=== PATIENT | male | born 1940 | race Caucasian/White ===

== ENCOUNTER 2019-10-07 12:18 | Outpatient (CLI) | payer MEDICARE, SELFPAY ==
[2019-10-07 13:10] LABS: Basophils % 0.3 %; Eosinophils # 0.1 10^3/uL (0.0-0.8); Eosinophils % 1.3 %; Hematocrit 39.7 % (42.0-52.0); Hemoglobin 13.4 g/dL (11.7-16.6); Lymphocytes # 1.8 10^3/uL (0.8-4.8); Lymphocytes % 29.5 %; Mean Corpuscular HGB Conc 33.8 g/dL (30.0-36.0); Mean Corpuscular Hemoglobin 32.3 pg (28.0-34.0); Mean Corpuscular Volume 95.7 fL (80-94); Mean Platelet Volume 11.2 fL (7.4-10.4); Monocytes # 0.5 10^3/uL (0.2-0.9); Monocytes % 7.8 %; Neutrophils # 3.6 10^3/uL (1.8-7.7); Neutrophils % 61.1 %; Nucleated Red Blood Cells % 0 %; Platelet Count 193 10^3/cmm (130-400); Red Blood Count 4.15 10^6/uL (4.1-5.3); White Blood Count 5.9 10^3/uL (4.0-10.0)
[2019-10-07 13:31] LABS: Testosterone Total 2.5 ng/dL (193-740)
[2019-10-07 13:33] LABS: Prostate Specific Antigen 1.33 ng/mL (0-4); Thyroid Stimulating Hormone 2.52 uIU/mL (0.27-4.20)
[2019-10-07 13:44] LABS: Alanine Aminotransferase 30 U/L (0-41); Albumin Level 4.2 g/dL (3.5-5.2); Alkaline Phosphatase 112 IU/L (40-130); Anion Gap 15.9 (5-19); Aspartate Amino Transferase 20 U/L (0-40); Blood Urea Nitrogen 14 mg/dL (8-23); Calcium 9.7 mg/dL (8.5-10.5); Carbon Dioxide 27 mmol/L (22-29); Chloride 101 mmol/L (98-107); Globulin 2.5 g/dL (1.3-4.6); Glucose 161 mg/dL (65-115); Potassium 3.9 mmol/L (3.5-5.1); Sodium 140 mmol/L (136-145); Total Bilirubin 0.4 mg/dL (0.15-1.2); Total Protein 6.7 g/dL (6.6-8.7)
[2019-10-07 14:15] LABS: Vitamin B12 478 pg/mL (232-1245)
[2019-10-07] MEDS: goserelin acetate 10.8 mg Implant SUBCUT (15:01)
--- NOTE | 2019-10-09 12:02 | ONC FU_ITS ---
Dr. Zavaleta Patient Follow-Up Note Patient: David Sahu Unit #: [id number]: 1940 Dicatated By: David Zavaleta M.D.Date of Visit:Oct 07, 2019 Onc Med Follow-up/Prog Note Chief Complaint: Prostate cancer. 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 Approximately 2 years ago he had become stove up with some generalized joint pain and stiffness. He had seen Dr. Calderon at that time, and he had dramatic symptomatic improvement with a relatively short course of steroid therapy on prednisone. He had not become symptomatic again until September or October of this year. He then had a follow-up visit with Dr. Calderon in November, and his PSA level was found to be greater than 10,000 ng/mL. He was seen by Dr. Stock on 12/03/2018. He was noted to have a rock hard prostate on exam. Repeat PSA level was reported at greater than 5000 ng/mL. His further evaluation with bone scan on 12/11/2018 showed extensive bony metastatic disease involving axial and proximal appendicular skeletal structures. CT of the abdomen/pelvis showed multiple noncalcified pulmonary nodules at the lung bases, the largest measuring 8.4 mm in the left lower lobe. The liver appeared normal. There was no renal mass or obstruction. The prostate was enlarged measuring 6.7 x 5.6 x 5.2 cm. An enlarged right iliac lymph node measured 1.9 x 1.2 cm. 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 He had a follow-up visit with Dr. Stock on 12/13/2018. At that time he underwent needle biopsy of the prostate, and he then started bicalutamide 50 mg daily. Pathology showed prostatic adenocarcinoma, Isaac score 4+3 = 7. I had seen him initially on 12/26/2018. At that point he began treatment with Zoladex 10.8 mg, and he continued the bicalutamide. As of 02/03/2019 the PSA level had decreased to 146.30 ng/mL. During subsequent follow-up and continue to decline gradually. As of June 2019 it was down to 1.13 ng/mL. He other medical illnesses include hypertension, hyperlipidemia, and coronary artery disease. He has a history of paroxysmal atrial fibrillation. He underwent coronary angioplasty/stent placement in 1998. He has a history of smoking 1 pack of cigarettes daily for 20 years, but he had quit smoking sometime in his 40s. He is seen for a follow-up visit. He has been feeling pretty good generally. He still has some fatigue, and he tends to be tired by mid afternoon. His ECOG score is 1. He has good appetite. He has not had fever. He has having some hot flashes, but not as much. His only other significant complaint is that he has been having pain and tingling in his hands, significant enough that it does interfere with his function. He says that he had a similar problem a few years ago. He was treated empirically with prednisone, and it got better for a couple of years. He also has some general stiffness. He has no other joint or bone pain. Medications: Albuterol Sulfate 1 (108 (90 base) mcg/act) Aerosol Powder, Breath Activated Inhalation PRN, Aspirin 1 Tablet (of 81 mg) Oral daily, Atorvastatin Calcium 1 Tablet (of 40 mg) Oral daily, Bicalutamide 1 Tablet (of 50 mg) Oral daily, Lisinopril 1 Tablet (of 10 mg) Oral daily, Metoprolol Tartrate 1 Tablet (of 50 mg) Oral b.i.d., Multivitamin Adults 1 Tablet Oral daily, Warfarin Sodium 1 Tablet (of 5 mg) Oral daily Allergies: HYDROcodone-Acetaminophen Review of Systems: Constitutional - He feels good. His energy is pretty good. It seems to decrease in the afternoon. He does light work at home. His appetite is good and his weight is up a few pounds. No fever or chills. He has hot flashes and sweating. ECOG score is 1, ENMT - No sinus congestion/drainage. No mouth sores. No sore throat or difficulty swallowing, Hematologic/Lymphatic - He bruises easily, Respiratory - No shortness of breath. He has a slight cough. No pleuritic pain or hemoptysis, Cardiovascular - No angina pain. No palpitations, Gastrointestinal - No nausea or vomiting. He has occasional heartburn. He takes fiber to keep his bowels regulated. No blood in the stool or black stools, Genitourinary (M) - No dysuria or hematuria. No urinary frequency. No urgency or incontinence, Musculoskeletal - He has pain in his hands. He has stiffness and pain when he first gets up, Integumentary - No skin complications, Neurologic - No headache or dizziness. He has numbness and tingling in his hands, Psychiatric - No anxiety or depression. No insomnia. Vital Signs: Performed on Oct 07, 2019 14:14 Height - 69.00 in Weight - 207.8 lbs (HIGH) BSA - 2.10 sq.m BMI - 30.69 (HIGH) Temperature - 97.8 F (LOW) Pulse - 61 /min Respiration - 24 /min BP - 135/69 mm(hg) O2 Sat - 96 % Pain - 5 Physical Examination: Constitutional - He looks good generally, Eyes - Sclerae nonicteric. Conjunctivae clear. He has suborbital ecchymosis on the left side, ENMT - There are no lesions noted in the oral cavity, Hematologic/Lymphatic - No cervical, clavicular, or axillary adenopathy, Respiratory - Lungs are clear with good air movement bilaterally, Cardiovascular - Heart rhythm is regular. There is no murmur, gallop, or rub noted, Abdomen - Mildly distended but soft. Liver and spleen are not enlarged. There is no abdominal mass or ascites noted and there is no inguinal adenopathy, Extremities - There is some very slight swelling in the fingers. There is no lower extremity edema, Neurologic - No focal neurologic deficits noted. Lab/Imaging: Test performed on Oct 07, 2019 12:35 Sodium 140 mmol/L Testosterone, Total 2.5 ng/dL TSH 2.52 uIU/mL Vitamin B12 478 pg/mL Potassium 3.9 mmol/L Chloride 101 mmol/L CO2 27 mmol/L Anion Gap 15.9 BUN 14 mg/dL Creatinine 0.9 mg/dL Cr Clearance (Est) 87.28 mL/min Glucose 161 mg/dL Calcium 9.7 mg/dL Protein, Total 6.7 g/dL Albumin 4.2 g/dL Globulin 2.5 g/dL Bilirubin, Total 0.4 mg/dL ALT (SGPT) 30 U/L AST (SGOT) 20 U/L Alkaline Phosphatase 112 IU/L WBC 5.9 10 3/uL RBC 4.15 10 6/uL HGB 13.4 g/dL HCT 39.7 % MCV 95.7 fL MCH 32.3 pg MCHC 33.8 g/dL RDW 12.0 % Platelet Count 193 10 3/cmm MPV 11.2 fL Neutrophils 3.6 10 3/uL Lymphocytes 1.8 10 3/uL Monocytes 0.5 10 3/uL Eosinophils 0.1 10 3/uL Basophils 0.0 10 3/uL Neutrophil % 61.1 % Lymphocyte % 29.5 % Monocyte % 7.8 % Eosinophil % 1.3 % Basophils % 0.3 % PSA 1.33 ng/mL Impression: 1. Patient with Isaac score 7 adenocarcinoma of the prostate, stage IV, with bone scan and CT evidence of extensive osteoblastic metastatic disease. CT also showed small noncalcified pulmonary nodules bilaterally, which was a nonspecific finding but also suspicious. 2. He began treatment with bicalutamide 50 mg daily following needle biopsy of the prostate on 12/13/2018. 3. He began androgen deprivation therapy with Zoladex on 12/26/2018, and he continued the bicalutamide. His other medical illnesses include: 4. Hypertension. 5. Hyperlipidemia. 6. Coronary artery disease with previous angioplasty/stent placement. 7. He has a history of paroxysmal atrial fibrillation. He is on chronic anticoagulation with warfarin. 8. He has a history of mild asthma. He has had a very good response to the androgen deprivation therapy, though his PSA level has now stabilized at 1.33 ng/mL compared to a pretreatment level > 10,000 ng/mL. His alkaline phosphatase has now come down to normal. He has been tolerating treatment well and overall he appears to be doing very well clinically. He is having some joint pain and stiffness, and he also has numbness/tingling in his hands. The exact cause of this is uncertain, but in the past he had similar symptoms which improved on empiric steroid therapy. Plan: He will be given Zoladex 10.8 mg by subcutaneous injection and he will continue bicalutamide 50 mg daily. I will have him start prednisone 10 mg twice daily for 5 days followed by 10 mg daily. He will be scheduled for a follow-up visit in 3 months. Signed By: David Zavaleta M.D. <<Signature on File>>
== END 2019-10-07 12:19 | disposition home or self-care (01) ==
LOC: ONCMED 12:22
PROVIDERS: Family Provider Family Medicine; PCP Family Medicine; Visit Provider Internal Medicine Medical Oncology
DX: C61 Malignant neoplasm of prostate (principal); I10 Essential (primary) hypertension; E78.5 Hyperlipidemia, unspecified; I25.10 Atherosclerotic heart disease of native coronary artery without angina pectoris; I48.0 Paroxysmal atrial fibrillation; J45.20 Mild intermittent asthma, uncomplicated; M25.50 Pain in unspecified joint; Z79.818 Long term (current) use of other agents affecting estrogen receptors and estrogen levels; Z79.899 Other long term (current) drug therapy; Z79.51 Long term (current) use of inhaled steroids; Z79.82 Long term (current) use of aspirin; Z79.01 Long term (current) use of anticoagulants; Z87.891 Personal history of nicotine dependence; Z95.5 Presence of coronary angioplasty implant and graft
CPT/HCPCS: 36415; 80053; 82607; 84153; 84403; 84443; 85025; 96372; 96402; 99214; J9202

== ENCOUNTER 2020-01-06 08:09 | Outpatient (CLI) | payer MEDICARE, SELFPAY ==
[2020-01-06 08:45] LABS: Basophils % 0.3 %; Eosinophils # 0.1 10^3/uL (0.0-0.8); Eosinophils % 0.9 %; Hematocrit 41.2 % (42.0-52.0); Hemoglobin 13.8 g/dL (11.7-16.6); Lymphocytes # 2.6 10^3/uL (0.8-4.8); Lymphocytes % 26.7 %; Mean Corpuscular HGB Conc 33.5 g/dL (30.0-36.0); Mean Corpuscular Hemoglobin 34.4 pg (28.0-34.0); Mean Corpuscular Volume 102.7 fL (80-94); Mean Platelet Volume 10.5 fL (7.4-10.4); Monocytes # 0.8 10^3/uL (0.2-0.9); Monocytes % 8.2 %; Neutrophils # 6.2 10^3/uL (1.8-7.7); Neutrophils % 63.6 %; Nucleated Red Blood Cells % 0 %; Platelet Count 223 10^3/cmm (130-400); Red Blood Count 4.01 10^6/uL (4.1-5.3); Red Cell Distribution Width 13.6 % (12.1-15.1); White Blood Count 9.7 10^3/uL (4.0-10.0)
[2020-01-06 09:14] LABS: Prostate Specific Antigen 13.57 ng/mL (0-4)
[2020-01-06] MEDS: lidocaine 1% INJ 20 mL INJECTION (09:40)
[2020-01-06 09:55] LABS: Testosterone Total 2.5 ng/dL (193-740)
[2020-01-06] MEDS: goserelin acetate 10.8 mg Implant IM (09:55)
[2020-01-06 10:28] LABS: Alanine Aminotransferase 32 U/L (0-41); Albumin Level 4.1 g/dL (3.5-5.2); Alkaline Phosphatase 71 IU/L (40-130); Anion Gap 16.5 (5-19); Aspartate Amino Transferase 17 U/L (0-40); Blood Urea Nitrogen 15 mg/dL (8-23); Calcium 9.2 mg/dL (8.5-10.5); Carbon Dioxide 26 mmol/L (22-29); Chloride 107 mmol/L (98-107); Globulin 2.4 g/dL (1.3-4.6); Glucose 106 mg/dL (65-115); Osmolality Calculated 297 mOsm/kg (285-295); Potassium 4.5 mmol/L (3.5-5.1); Sodium 145 mmol/L (136-145); Total Bilirubin 0.4 mg/dL (0.15-1.2); Total Protein 6.5 g/dL (6.6-8.7)
--- NOTE | 2020-01-10 08:49 | ONC FU_ITS ---
Dr. Zavaleta Patient Follow-Up Note Patient: David Sahu Unit #: [id number]: 1940 Dicatated By: David Zavaleta M.D.Date of Visit:January 06, 2020 Onc Med Follow-up/Prog Note Chief Complaint: Prostate cancer. 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 Approximately 2 years ago he had become stove up with some generalized joint pain and stiffness. He had seen Dr. Calderon at that time, and he had dramatic symptomatic improvement with a relatively short course of steroid therapy on prednisone. He had not become symptomatic again until September or October of this year. He then had a follow-up visit with Dr. Calderon in November, and his PSA level was found to be greater than 10,000 ng/mL. He was seen by Dr. Stock on 12/03/2018. He was noted to have a rock hard prostate on exam. Repeat PSA level was reported at greater than 5000 ng/mL. His further evaluation with bone scan on 12/11/2018 showed extensive bony metastatic disease involving axial and proximal appendicular skeletal structures. CT of the abdomen/pelvis showed multiple noncalcified pulmonary nodules at the lung bases, the largest measuring 8.4 mm in the left lower lobe. The liver appeared normal. There was no renal mass or obstruction. The prostate was enlarged measuring 6.7 x 5.6 x 5.2 cm. An enlarged right iliac lymph node measured 1.9 x 1.2 cm. 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 He had a follow-up visit with Dr. Stock on 12/13/2018. At that time he underwent needle biopsy of the prostate, and he then started bicalutamide 50 mg daily. Pathology showed prostatic adenocarcinoma, Isaac score 4+3 = 7. I had seen him initially on 12/26/2018. At that point he began treatment with Zoladex 10.8 mg, and he continued the bicalutamide. As of 02/03/2019 the PSA level had decreased to 146.30 ng/mL. During subsequent follow-up and continue to decline gradually. As of June 2019 it was down to 1.13 ng/mL. He other medical illnesses include hypertension, hyperlipidemia, and coronary artery disease. He has a history of paroxysmal atrial fibrillation. He underwent coronary angioplasty/stent placement in 1998. He has a history of smoking 1 pack of cigarettes daily for 20 years, but he had quit smoking sometime in his 40s. INTERIM HISTORY: As of his follow-up visit on 10/07/2019 his PSA had stabilized at 1.33 ng/mL. He was reporting increased joint pain and stiffness. He otherwise appeared stable clinically. He continued treatment with Zoladex and bicalutamide, and I did have him start a low dosage of prednisone. He is seen for a follow-up visit. He has not been feeling as good generally. He says he gets exhausted pretty easily. He is still doing light work. His ECOG score is 1. He has good appetite. He has gained weight gradually. He has not had fever. He is having hot flashes. They seem to be getting a little worse, but they are not occurring as frequently. He still has some joint pain, but that has improved with the prednisone. He does complain of having pain from his right shoulder down to his right elbow, particularly when he first lies down in bed at night. He has some shortness of breath, though his breathing generally has been pretty good. He has just a very slight cough. He does not complain of chest pain. He has no GI complaints. He does report having some urinary frequency and urgency. He has some numbness/tingling in his hands at night. He has no other focal neurologic symptoms. Medications: Albuterol Sulfate 1 (108 (90 base) mcg/act) Aerosol Powder, Breath Activated Inhalation PRN, Aspirin 1 Tablet (of 81 mg) Oral daily, Atorvastatin Calcium 1 Tablet (of 40 mg) Oral daily, Bicalutamide 1 Tablet (of 50 mg) Oral daily, Lisinopril 1 Tablet (of 10 mg) Oral daily, Metoprolol Tartrate 1 Tablet (of 50 mg) Oral b.i.d., Multivitamin Adults 1 Tablet Oral daily, Warfarin Sodium 1 Tablet (of 5 mg) Oral daily Allergies: HYDROcodone-Acetaminophen Review of Systems: Constitutional - He has not been feeling as good. He gets exhaused pretty easily. He sitll is doing light work at home. His appetite is good. He has been gaining weight gradually. No fever or chills. He has hot flashes and sweating. They may be getting a little worse, but they are not as frequent. ECOG score is 1, ENMT - He has some allergy related sinus symptoms. No mouth sores. No sore throat or difficulty swallowing, Hematologic/Lymphatic - He bruises easily, Respiratory - He has some shortness of breath, but his breathing has been pretty good. He has a very slight cough. No pleuritic pain or hemoptysis, Cardiovascular - No angina pain. No palpitations, Gastrointestinal - No nausea or vomiting. No heartburn or acid reflux. Bowels have been OK. No blood in the stool or black stools, Genitourinary (M) - No dysuria or hematuria. He has urinary frequency and some urgency. No incontinence, Musculoskeletal - He still has some joint pain and stiffness, but it has improved with the prednisone. He does complain of having pain from his right shoulder down to his right elbow, particularly when he lies down in bed at night, Integumentary - No skin complications, Neurologic - No headache or dizziness. He has numbness and tingling in his hands at night, Psychiatric - No anxiety or depression, but he has noticed that he has been prone to having a bad temper, which isn't normal for him. No insomnia. Vital Signs: Performed on January 06, 2020 09:19 Height - 69.00 in Weight - 214.0 lbs (HIGH) BSA - 2.13 sq.m BMI - 31.60 (HIGH) Temperature - 97.2 F (LOW) Pulse - 54 /min (LOW) Respiration - 22 /min BP - 136/74 mm(hg) O2 Sat - 98 % Pain - 0 Physical Examination: Constitutional - He looks pretty good generally, Eyes - Sclerae nonicteric. Conjunctivae clear, ENMT - There are no lesions noted in the oral cavity, Hematologic/Lymphatic - No cervical, clavicular, or axillary adenopathy, Respiratory - Lungs are clear with good air movement bilaterally, Cardiovascular - Heart rhythm is regular. There is no murmur, gallop, or rub noted, Abdomen - Mildly distended but soft. Liver and spleen are not enlarged. There is no abdominal mass or ascites noted and there is no inguinal adenopathy, Extremities - No edema. He has scattered purpuric lesions, Neurologic - No focal neurologic deficits noted. Lab/Imaging: Test performed on January 06, 2020 08:18 Sodium 145 mmol/L Testosterone, Total 2.5 ng/dL Potassium 4.5 mmol/L Chloride 107 mmol/L CO2 26 mmol/L Anion Gap 16.5 BUN 15 mg/dL Creatinine 1.0 mg/dL Cr Clearance (Est) 79.5400 mL/min Glucose 106 mg/dL Calcium 9.2 mg/dL Protein, Total 6.5 g/dL Albumin 4.1 g/dL Globulin 2.4 g/dL Bilirubin, Total 0.4 mg/dL ALT (SGPT) 32 U/L AST (SGOT) 17 U/L Alkaline Phosphatase 71 IU/L WBC 9.7 10 3/uL RBC 4.01 10 6/uL HGB 13.8 g/dL HCT 41.2 % MCV 102.7 fL MCH 34.4 pg MCHC 33.5 g/dL RDW 13.6 % Platelet Count 223 10 3/cmm MPV 10.5 fL Neutrophils 6.2 10 3/uL Lymphocytes 2.6 10 3/uL Monocytes 0.8 10 3/uL Eosinophils 0.1 10 3/uL Basophils 0.0 10 3/uL Neutrophil % 63.6 % Lymphocyte % 26.7 % Monocyte % 8.2 % Eosinophil % 0.9 % Basophils % 0.3 % PSA 13.57 ng/mL Test performed on Oct 07, 2019 12:35 TSH 2.52 uIU/mL Vitamin B12 478 pg/mL Impression: 1. Patient with Isaac score 7 adenocarcinoma of the prostate, stage IV, with bone scan and CT evidence of extensive osteoblastic metastatic disease. CT also showed small noncalcified pulmonary nodules bilaterally, which was a nonspecific finding but also suspicious. 2. He began treatment with bicalutamide 50 mg daily following needle biopsy of the prostate on 12/13/2018. 3. He began androgen deprivation therapy with Zoladex on 12/26/2018, and he continued the bicalutamide. His other medical illnesses include: 4. Hypertension. 5. Hyperlipidemia. 6. Coronary artery disease with previous angioplasty/stent placement. 7. He has a history of paroxysmal atrial fibrillation. He is on chronic anticoagulation with warfarin. 8. He has a history of mild asthma. He has had a very good response to the androgen deprivation therapy. As of his follow-up visit in September 2019 his PSA had stabilized at 1.33 ng/mL compared to a pretreatment level greater than 10,000. However, it has now increased to 13.57 ng/mL, and he does appear to be showing some decline in his clinical status. Plan: He will be given Zoladex 10.8 mg by subcutaneous injection, but he will now stop the bicalutamide. He will continue prednisone 5 mg daily. His PSA will be monitored monthly. If it continues to increase, I will have him start treatment with enzalutamide or abiraterone, depending on his insurance coverage. I will tentatively plan a follow-up visit in 3 months. Signed By: David Zavaleta M.D. <<Signature on File>>
== END 2020-01-06 08:10 | disposition home or self-care (01) ==
LOC: ONCMED 08:13
PROVIDERS: PCP Family Medicine; Visit Provider Internal Medicine Medical Oncology
DX: C61 Malignant neoplasm of prostate (principal); C79.51 Secondary malignant neoplasm of bone; I10 Essential (primary) hypertension; E78.5 Hyperlipidemia, unspecified; I48.0 Paroxysmal atrial fibrillation; R91.8 Other nonspecific abnormal finding of lung field; Z79.01 Long term (current) use of anticoagulants; J45.909 Unspecified asthma, uncomplicated; Z79.818 Long term (current) use of other agents affecting estrogen receptors and estrogen levels; Z79.52 Long term (current) use of systemic steroids; Z95.1 Presence of aortocoronary bypass graft
CPT/HCPCS: 80053; 84153; 84403; 85025; 96372; 96402; 99214; J2001; J9202

== ENCOUNTER 2020-02-09 10:19 | Outpatient (CLI) | payer MEDICARE, SELFPAY | END 2020-02-09 10:20 | disposition home or self-care (01) | LOC: ONCMED 10:23 | PROVIDERS: PCP Family Medicine; Visit Provider Internal Medicine Medical Oncology | DX: C61 Malignant neoplasm of prostate (principal) | CPT/HCPCS: 36415; 84153 ==

== ENCOUNTER 2020-02-18 13:43 | Outpatient (CLI) | payer MEDICARE, SELFPAY ==
[2020-02-18 16:09] LABS: Basophils % 0.3 %; Eosinophils % 0.1 %; Hematocrit 42.8 % (42.0-52.0); Lymphocytes # 1.9 10^3/uL (0.8-4.8); Lymphocytes % 16.3 %; Mean Corpuscular HGB Conc 32.7 g/dL (30.0-36.0); Mean Corpuscular Hemoglobin 33.7 pg (28.0-34.0); Mean Corpuscular Volume 102.9 fL (80-94); Mean Platelet Volume 10.7 fL (7.4-10.4); Monocytes # 0.4 10^3/uL (0.2-0.9); Monocytes % 3.2 %; Neutrophils # 9.09 10^3/uL (1.8-7.7); Neutrophils % 79.6 %; Nucleated Red Blood Cells % 0 %; Platelet Count 213 10^3/cmm (130-400); Red Blood Count 4.16 10^6/uL (4.1-5.3); Red Cell Distribution Width 12.6 % (12.1-15.1); White Blood Count 11.4 10^3/uL (4.0-10.0)
[2020-02-18 16:50] LABS: Alanine Aminotransferase 48 U/L (0-41); Albumin Level 4.5 g/dL (3.5-5.2); Alkaline Phosphatase 78 IU/L (40-130); Anion Gap 13.6 (5-19); Blood Urea Nitrogen 13 mg/dL (8-23); Calcium 9.5 mg/dL (8.5-10.5); Carbon Dioxide 26 mmol/L (22-29); Chloride 105 mmol/L (98-107); Globulin 2.2 g/dL (1.3-4.6); Glucose 138 mg/dL (65-115); Osmolality Calculated 288 mOsm/kg (285-295); Potassium 4.6 mmol/L (3.5-5.1); Sodium 140 mmol/L (136-145); Total Bilirubin 0.4 mg/dL (0.15-1.2); Total Protein 6.7 g/dL (6.6-8.7)
[2020-02-18 23:21] LABS: Aspartate Amino Transferase 26 U/L (0-40)
--- NOTE | 2020-02-24 22:34 | ONC FU_ITS ---
[facility] Patient Note Patient: David Sahu Unit #: [id number]: 1940 Dictated By: Vernon WolffDate of Visit: Feb 18, 2020 Onc MED Follow-Up/Prog Note Chief Complaint: Prostate cancer. 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 Approximately 2 years ago he had become stove up with some generalized joint pain and stiffness. He had seen Dr. Calderon at that time, and he had dramatic symptomatic improvement with a relatively short course of steroid therapy on prednisone. He had not become symptomatic again until September or October of this year. He then had a follow-up visit with Dr. Calderon in November, and his PSA level was found to be greater than 10,000 ng/mL. He was seen by Dr. Stock on 12/03/2018. He was noted to have a rock hard prostate on exam. Repeat PSA level was reported at greater than 5000 ng/mL. His further evaluation with bone scan on 12/11/2018 showed extensive bony metastatic disease involving axial and proximal appendicular skeletal structures. CT of the abdomen/pelvis showed multiple noncalcified pulmonary nodules at the lung bases, the largest measuring 8.4 mm in the left lower lobe. The liver appeared normal. There was no renal mass or obstruction. The prostate was enlarged measuring 6.7 x 5.6 x 5.2 cm. An enlarged right iliac lymph node measured 1.9 x 1.2 cm. 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 He had a follow-up visit with Dr. Stock on 12/13/2018. At that time he underwent needle biopsy of the prostate, and he then started bicalutamide 50 mg daily. Pathology showed prostatic adenocarcinoma, [place] score 4+3 = 7. Dr Zavaleta had seen him initially on 12/26/2018. At that point he began treatment with Zoladex 10.8 mg, and he continued the bicalutamide. As of 02/03/2019 the PSA level had decreased to 146.30 ng/mL. During subsequent follow-up and continue to decline gradually. As of June 2019 it was down to 1.13 ng/mL. He other medical illnesses include hypertension, hyperlipidemia, and coronary artery disease. He has a history of paroxysmal atrial fibrillation. He underwent coronary angioplasty/stent placement in 1998. He has a history of smoking 1 pack of cigarettes daily for 20 years, but he had quit smoking sometime in his 40s. INTERIM HISTORY: As of his follow-up visit on 10/07/2019 his PSA had stabilized at 1.33 ng/mL. He was reporting increased joint pain and stiffness. He otherwise appeared stable clinically. He continued treatment with Zoladex and bicalutamide, and I did have him start a low dosage of prednisone. He was seen for a follow-up visit in December [address] Zavaleta. He had not been feeling as good generally. He states he was getting exhausted pretty easily. His PSA had continued to increase. Dr Zavaleta recommended pursuing oral treatment with Xtandi (enzalutamide 160 mg p.o. daily). Mr. Sahu has been supplied with the Xtandi and is here today for follow-up and discussion of side effects and treatment plan. He has no new concerns today. He denies any fever or chills. He denies any mouth sores sore throat or difficulty swallowing. He states his bowel and bladders are normal for him. He denies any neuropathy symptoms. He denies any mouth sores, sore throat or difficulty swallowing. He said no fever or chills or any signs of infection for at least the last 72 hours. His ECOG i 1. Past Medical History: Asthma Atrial fibrillation Coronary artery disease Hyperlipidemia Hypertension Myocardial Infarction Osteoarthritis Past Surgical History: Coronary angioplasty/stent placement in 1998 Allergies: HYDROcodone-Acetaminophen Medications: Albuterol Sulfate 1 (108 (90 base) mcg/act) Aerosol Powder, Breath Activated Inhalation PRN Aspirin 1 Tablet (of 81 mg) Oral daily Atorvastatin Calcium 1 Tablet (of 40 mg) Oral daily Bicalutamide 1 Tablet (of 50 mg) Oral daily Lisinopril 1 Tablet (of 10 mg) Oral daily Metoprolol Tartrate 1 Tablet (of 50 mg) Oral b.i.d. Multivitamin Adults 1 Tablet Oral daily Warfarin Sodium 1 Tablet (of 5 mg) Oral daily Family History: Mr. Perezs mother at age 73: parkinson's disease. Mr. Perezs father at age 74: heart disease. Mr. Sahu has 1 brother who is alive: heart disease. He has 2 sisters: 2 alive. Mr. Sahu's first sister's alzheimers. Another sister's alzheimers. Father of heart attack age 74. Mother age 75 with Parkinson's disease. He has one brother who has coronary artery disease. Two sisters both have dementia, and one also has coronary artery disease and the other also was treated for uterine cancer. A maternal uncle of prostate cancer. Social History: Mr. Sahu is and he is retired. Mr. Sahu quit smoking 35 years ago but had smoked 1.0 pack/day for 34 years. He has no history of drinking. Review Of Symptoms: Constitutional Denies fevers, chills, night sweats, excessive fatigue or weight loss. Allergic/Immunologic No reactions. Eyes Denies significant visual changes. No diplopia. No amaurosis. ENMT Denies changes in hearing, sore throat, mouth sores, difficulty or changes in swallowing ability, and/or sinus drainage. Endocrine No diabetes, thyroid disease or hormone replacement. Denies hot flashes or night sweats. Hematologic/Lymphatic Denies easy bruising or bleeding. The patient denies any tender or palpable lymph nodes. Respiratory Denies dyspnea on exertion, chest pain, cough or hemoptysis. Denies orthopnea. Cardiovascular Denies anginal chest pain, palpitations or orthopnea. Gastrointestinal Denies nausea, vomiting, diarrhea, GI bleeding, or constipation. Denies change in bowel habits and/or stool color, no heartburn or early satiety. Genitourinary (M) Denies hematuria, dysuria, increased frequency, urgency, hesitancy or incontinence. Musculoskeletal Denies joint pain, swelling or redness. No decreased range of motion. Integumentary Denies chronic rashes, inflammation, ulcerations or skin changes. Neurologic Denies headache, blurred vision, and no areas of focal weakness or numbness. Normal gait. No sensory problems. Psychiatric Denies insomnia, depression, ligia or mood swings. Vital Signs: Performed on Feb 18, 2020 14:56 Height - 69.00 in Temperature - 97.9 F (LOW) Pulse - 54 /min (LOW) Respiration - 18 /min BP - 127/72 mm(hg) O2 Sat - 95 % (LOW) Pain - 0,1 - No physically strenuous activity, but ambulatory and able to carry out light or sedentary work (e.g. office work, light house work). (ECOG) Physical Examination: Constitutional Alert, oriented, no acute distress. Skin pink, warm and dry. Head Normocephalic; atraumatic. Eyes Conjunctivae and sclerae are clear and without icterus. Pupils are reactive and equal. Neck Supple without masses or thyromegaly. No jugular venous distension. Hematologic/Lymphatic No petechiae or purpura. No tender or palpable lymph nodes in the cervical or supraclavicular areas. Respiratory Lungs are clear to auscultation without rhonchi or wheezing. Cardiovascular Regular rate and rhythm of heart without murmurs,clicks, gallops or rubs. Abdomen Non-tender, non-distended, no masses or ascites. No guarding or rebound tenderness. No pulsatile masses. Back/Spine Non-tender to palpation. Extremities No visible deformities, no cyanosis, clubbing or edema. Musculoskeletal No tenderness or swelling, normal range of motion without obvious weakness. Integumentary No rashes or lesions. Neurologic No sensory or motor deficits, normal cerebellar function, normal gait. Psychiatric Alert and oriented times three. Coherent speech. Verbalizes understanding of our discussions today. Laboratory:Test performed on Feb 18, 2020 15:50 Sodium 140 mmol/L Potassium 4.6 mmol/L Chloride 105 mmol/L CO2 26 mmol/L Anion Gap 13.6 BUN 13 mg/dL Creatinine 0.8 mg/dL Cr Clearance (Est) 99.4300 mL/min Glucose 138 mg/dL Calcium 9.5 mg/dL Protein, Total 6.7 g/dL Albumin 4.5 g/dL Globulin 2.2 g/dL Bilirubin, Total 0.4 mg/dL ALT (SGPT) 48 U/L AST (SGOT) 26 U/L Alkaline Phosphatase 78 IU/L WBC 11.4 10 3/uL RBC 4.16 10 6/uL HGB 14.0 g/dL HCT 42.8 % MCV 102.9 fL MCH 33.7 pg MCHC 32.7 g/dL RDW 12.6 % Platelet Count 213 10 3/cmm MPV 10.7 fL Neutrophils 9.09 10 3/uL Lymphocytes 1.9 10 3/uL Monocytes 0.4 10 3/uL Eosinophils 0.0 10 3/uL Basophils 0.0 10 3/uL Neutrophil % 79.6 % Lymphocyte % 16.3 % Monocyte % 3.2 % Eosinophil % 0.1 % Basophils % 0.3 % NRBC % 0 % PSA 22.550 ng/mL Test performed on January 06, 2020 08:18 Testosterone, Total 2.5 ng/dL Test performed on Oct 07, 2019 12:35 TSH 2.52 uIU/mL Vitamin B12 478 pg/mL Impression: 1. Patient with Isaac score 7 adenocarcinoma of the prostate, stage IV, with bone scan and CT evidence of extensive osteoblastic metastatic disease. CT also showed small noncalcified pulmonary nodules bilaterally, which was a nonspecific finding but also suspicious. 2. He began treatment with bicalutamide 50 mg daily following needle biopsy of the prostate on 12/13/2018. 3. He began androgen deprivation therapy with Zoladex on 12/26/2018, and he continued the bicalutamide. His other medical illnesses include: 4. Hypertension. 5. Hyperlipidemia. 6. Coronary artery disease with previous angioplasty/stent placement. 7. He has a history of paroxysmal atrial fibrillation. He is on chronic anticoagulation with warfarin. 8. He has a history of mild asthma. He has had a very good response to the androgen deprivation therapy. As of his follow-up visit in September 2019 his PSA had stabilized at 1.33 ng/mL compared to a pretreatment level greater than 10,000. However, it has now increased to 13.57 ng/mL, and he does appear to be showing some decline in his clinical status. Plan: 1. Continue Zoladex 10.8 mg by subcutaneous injection-last fiven on 01/06/2020. 2. Stop the bicalutamide. 3. continue prednisone 5 mg daily. 4. Start Xtandi (enzalutamide) 160 mg orally daily. 5. AVOID GRAPEFRUIT PRODUCTS WITH ENZALUTAMIDE 6. I have requested baseline CBC CMP PSA as his last labs drawn here were January 06, 2020. His PSA at that time was 13.57 and reported on February 08 at 20.25. 7. We will plan to have him return in 2 weeks for follow-up visit with CBC CMP PSA. 8. He was advised he may utilize Compazine and Ativan as needed for nausea in relationship to the enzalutamide. He was instructed to call us if that is not working or if any questions or concerns arise before his next followup visit. 9. The patient and family were informed of the treatment plan and specific drugs were discussed. We also discussed how the medication works and identified common side effects including hot flashes, elevated triglycerides, headache, dizziness, hypertension, urticaria, flushing, fatigue, nausea, diarrhea, constipation, joint/muscle pain, heartburn, palpitations, alopecia is reported at < 5%. We discussed that they certainly need to let us know before taking any antioxidants or herbal or further dietary supplements, as we are unsure of how these agents react with the treatment plan and we request that they avoid these products for now. They are informed that it is okay to take the multivitamins. They verbally state that they understand to take all medications as directed by the provider unless otherwise indicated. Instructions for oral care with baking soda and salt water rinses as well as a guide for use of [id number] medication were provided with the treatment plan. They were given specific drug information. They have no questions and verbalized understanding and are willing to proceed with treatment at this time. The majority of this visit was spent in face to face communication with this patient and/or his family in regards to plan of care, side effect identification and management. Signed By: DENNIS Wolff. AOP David Zavaleta MD <<Signature on File>>
== END 2020-02-18 13:44 | disposition home or self-care (01) ==
PROVIDERS: PCP Family Medicine; Visit Provider Nurse Practitioner
DX: C61 Malignant neoplasm of prostate (principal); C79.51 Secondary malignant neoplasm of bone; Z51.81 Encounter for therapeutic drug level monitoring; R97.21 Rising PSA following treatment for malignant neoplasm of prostate; I10 Essential (primary) hypertension; E78.5 Hyperlipidemia, unspecified; I25.10 Atherosclerotic heart disease of native coronary artery without angina pectoris; I48.0 Paroxysmal atrial fibrillation; J45.909 Unspecified asthma, uncomplicated; Z79.818 Long term (current) use of other agents affecting estrogen receptors and estrogen levels; Z79.899 Other long term (current) drug therapy; Z79.01 Long term (current) use of anticoagulants; Z79.52 Long term (current) use of systemic steroids; Z95.5 Presence of coronary angioplasty implant and graft; Z95.1 Presence of aortocoronary bypass graft
CPT/HCPCS: 36415; 80053; 84153; 85025; 99214

== ENCOUNTER 2020-03-03 09:35 | Outpatient (CLI) | payer MEDICARE, SELFPAY ==
[2020-03-03 10:12] LABS: Basophils % 0.4 %; Eosinophils # 0.1 10^3/uL (0.0-0.8); Eosinophils % 0.7 %; Hematocrit 41.4 % (42.0-52.0); Hemoglobin 13.3 g/dL (11.7-16.6); Lymphocytes # 1.8 10^3/uL (0.8-4.8); Lymphocytes % 17.1 %; Mean Corpuscular HGB Conc 32.1 g/dL (30.0-36.0); Mean Corpuscular Hemoglobin 33.2 pg (28.0-34.0); Mean Corpuscular Volume 103.2 fL (80-94); Mean Platelet Volume 10.9 fL (7.4-10.4); Monocytes # 0.7 10^3/uL (0.2-0.9); Monocytes % 6.5 %; Neutrophils # 8.03 10^3/uL (1.8-7.7); Neutrophils % 74.9 %; Nucleated Red Blood Cells % 0 %; Platelet Count 208 10^3/cmm (130-400); Red Blood Count 4.01 10^6/uL (4.1-5.3); Red Cell Distribution Width 12.6 % (12.1-15.1); White Blood Count 10.7 10^3/uL (4.0-10.0)
[2020-03-03 10:52] LABS: Alanine Aminotransferase 30 U/L (0-41); Albumin Level 4.2 g/dL (3.5-5.2); Alkaline Phosphatase 64 IU/L (40-130); Anion Gap 14.1 (5-19); Aspartate Amino Transferase 17 U/L (0-40); Blood Urea Nitrogen 16 mg/dL (8-23); Calcium 9.5 mg/dL (8.5-10.5); Carbon Dioxide 27 mmol/L (22-29); Chloride 105 mmol/L (98-107); Globulin 2.3 g/dL (1.3-4.6); Glucose 113 mg/dL (65-115); Osmolality Calculated 291 mOsm/kg (285-295); Potassium 4.1 mmol/L (3.5-5.1); Sodium 142 mmol/L (136-145); Total Bilirubin 0.7 mg/dL (0.15-1.2); Total Protein 6.5 g/dL (6.6-8.7)
--- NOTE | 2020-03-03 12:08 | ONC FU_ITS ---
[facility] Patient Note Patient: David Sahu Unit #: [id number]: 1940 Dictated By: Vernon WolffDate of Visit: Mar 03, 2020 Onc MED Follow-Up/Prog Note Chief Complaint: Prostate cancer. 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 Approximately 2 years ago he had become stove up with some generalized joint pain and stiffness. He had seen Dr. Calderon at that time, and he had dramatic symptomatic improvement with a relatively short course of steroid therapy on prednisone. He had not become symptomatic again until September or October of this year. He then had a follow-up visit with Dr. Calderon in November, and his PSA level was found to be greater than 10,000 ng/mL. He was seen by Dr. Stock on 12/03/2018. He was noted to have a rock hard prostate on exam. Repeat PSA level was reported at greater than 5000 ng/mL. His further evaluation with bone scan on 12/11/2018 showed extensive bony metastatic disease involving axial and proximal appendicular skeletal structures. CT of the abdomen/pelvis showed multiple noncalcified pulmonary nodules at the lung bases, the largest measuring 8.4 mm in the left lower lobe. The liver appeared normal. There was no renal mass or obstruction. The prostate was enlarged measuring 6.7 x 5.6 x 5.2 cm. An enlarged right iliac lymph node measured 1.9 x 1.2 cm. 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 He had a follow-up visit with Dr. Stock on 12/13/2018. At that time he underwent needle biopsy of the prostate, and he then started bicalutamide 50 mg daily. Pathology showed prostatic adenocarcinoma, [place] score 4+3 = 7. Dr Zavaleta had seen him initially on 12/26/2018. At that point he began treatment with Zoladex 10.8 mg, and he continued the bicalutamide. As of 02/03/2019 the PSA level had decreased to 146.30 ng/mL. During subsequent follow-up and continue to decline gradually. As of June 2019 it was down to 1.13 ng/mL. He other medical illnesses include hypertension, hyperlipidemia, and coronary artery disease. He has a history of paroxysmal atrial fibrillation. He underwent coronary angioplasty/stent placement in 1998. He has a history of smoking 1 pack of cigarettes daily for 20 years, but he had quit smoking sometime in his 40s. INTERIM HISTORY: As of his follow-up visit on 10/07/2019 his PSA had stabilized at 1.33 ng/mL. He was reporting increased joint pain and stiffness. He otherwise appeared stable clinically. He continued treatment with Zoladex and bicalutamide, and Dr Zavaleta did have him start a low dosage of prednisone. He was seen for a follow-up visit in December [address] Zavaleta. He had not been feeling as good generally. He states he was getting exhausted pretty easily. His PSA had continued to increase. Dr Zavaleta recommended pursuing oral treatment with Xtandi (enzalutamide 160 mg p.o. daily). Mr. Sahu started the Xtandi on 02/19/2020 and is here today for follow-up. Mr. Pink states he is doing well overall. He has been taking Compazine prior to the enzalutamide and states he is had no evidence of nausea at all. He states he is had no side effects at all that I know of . 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 He is tending his yard. He denies any new shortness of breath orthopnea. He states he is had shortness of breath for some time but is no worse. He states he has a history of asthma but has had no flares recently. He denies any chest pain or palpitations. He is had no mouth sores sore throat or difficulty swallowing. He states that his appetite is good and his energy is fair. He denies diarrhea or constipation. He denies any urinary changes. His ECOG is 0. Past Medical History: Asthma Atrial fibrillation Coronary artery disease Hyperlipidemia Hypertension Myocardial Infarction Osteoarthritis Past Surgical History: Coronary angioplasty/stent placement in 1998 Allergies: HYDROcodone-Acetaminophen Medications: Albuterol Sulfate 1 (108 (90 base) mcg/act) Aerosol Powder, Breath Activated Inhalation PRN Aspirin 1 Tablet (of 81 mg) Oral daily Atorvastatin Calcium 1 Tablet (of 40 mg) Oral daily Bicalutamide 1 Tablet (of 50 mg) Oral daily Lisinopril 1 Tablet (of 10 mg) Oral daily Metoprolol Tartrate 1 Tablet (of 50 mg) Oral b.i.d. Multivitamin Adults 1 Tablet Oral daily Warfarin Sodium (5 mg) Tablet Oral Take as Directed Family History: Mr. Sahu's mother at age 73: parkinson's disease. Mr. Perezs father at age 74: heart disease. Mr. Sahu has 1 brother who is alive: heart disease. He has 2 sisters: 2 alive. Mr. Sahu's first sister's alzheimers. Another sister's alzheimers. Father of heart attack age 74. Mother age 75 with Parkinson's disease. He has one brother who has coronary artery disease. Two sisters both have dementia, and one also has coronary artery disease and the other also was treated for uterine cancer. A maternal uncle of prostate cancer. Social History: Mr. Sahu is and he is retired. Mr. Sahu quit smoking 35 years ago but had smoked 1.0 pack/day for 34 years. He has no history of drinking. Review Of Symptoms: Constitutional Denies fevers, chills, night sweats, excessive fatigue or weight loss. Tires easily but not new. Allergic/Immunologic No reactions. Eyes Denies significant visual changes. No diplopia. No amaurosis. ENMT Denies changes in hearing, sore throat, mouth sores, difficulty or changes in swallowing ability, and/or sinus drainage. Hematologic/Lymphatic Denies easy bruising or bleeding. The patient denies any tender or palpable lymph nodes. Respiratory Some dyspnea on exertion-no worse than normal for him. Denies chest pain, cough or hemoptysis. Denies orthopnea. Cardiovascular Denies anginal chest pain, palpitations or orthopnea. Gastrointestinal Denies nausea, vomiting, diarrhea, GI bleeding, or constipation. Denies change in bowel habits and/or stool color, no heartburn or early satiety. Genitourinary (M) Denies hematuria, dysuria, increased frequency, urgency, hesitancy or incontinence. Musculoskeletal Denies joint pain, swelling or redness. No decreased range of motion. Integumentary Denies chronic rashes, inflammation, ulcerations or skin changes. Neurologic Denies headache, blurred vision, and no areas of focal weakness or numbness. Normal gait. No sensory problems. Psychiatric Denies insomnia, depression, ligia or mood swings. Vital Signs: Performed on Mar 03, 2020 11:10 Height - 69.00 in Weight - 214.8 lbs (HIGH) BSA - 2.13 sq.m BMI - 31.72 (HIGH) Temperature - 96.8 F (LOW) Pulse - 65 /min Respiration - 18 /min BP - 133/67 mm(hg) O2 Sat - 97 % Pain - 0,1 - No physically strenuous activity, but ambulatory and able to carry out light or sedentary work (e.g. office work, light house work). (ECOG) Physical Examination: Constitutional Alert, oriented, no acute distress. Skin pink, warm and dry. Head Normocephalic; atraumatic. Eyes Conjunctivae and sclerae are clear and without icterus. Pupils are reactive and equal. Neck Supple without masses or thyromegaly. No jugular venous distension. Hematologic/Lymphatic No petechiae or purpura. No tender or palpable lymph nodes in the cervical or supraclavicular areas. Respiratory Lungs are clear to auscultation without rhonchi or wheezing. Cardiovascular Regular rate and rhythm of heart without murmurs,clicks, gallops or rubs. Abdomen Non-tender, non-distended, no masses or ascites. No guarding or rebound tenderness. No pulsatile masses. Back/Spine Non-tender to palpation. Extremities No visible deformities, no cyanosis, clubbing or edema. Musculoskeletal No tenderness or swelling, normal range of motion without obvious weakness. Integumentary No rashes or lesions. Neurologic No sensory or motor deficits, normal cerebellar function, normal gait. Psychiatric Alert and oriented times three. Coherent speech. Verbalizes understanding of our discussions today. Laboratory:Test performed on Mar 03, 2020 09:48 Sodium 142 mmol/L Potassium 4.1 mmol/L Chloride 105 mmol/L CO2 27 mmol/L Anion Gap 14.1 BUN 16 mg/dL Creatinine 1.0 mg/dL Cr Clearance (Est) 79.84 mL/min Glucose 113 mg/dL Calcium 9.5 mg/dL Protein, Total 6.5 g/dL Albumin 4.2 g/dL Globulin 2.3 g/dL Bilirubin, Total 0.7 mg/dL ALT (SGPT) 30 U/L AST (SGOT) 17 U/L Alkaline Phosphatase 64 IU/L WBC 10.7 10 3/uL RBC 4.01 10 6/uL HGB 13.3 g/dL HCT 41.4 % MCV 103.2 fL MCH 33.2 pg MCHC 32.1 g/dL RDW 12.6 % Platelet Count 208 10 3/cmm MPV 10.9 fL Neutrophils 8.03 10 3/uL Lymphocytes 1.8 10 3/uL Monocytes 0.7 10 3/uL Eosinophils 0.1 10 3/uL Basophils 0.0 10 3/uL Neutrophil % 74.9 % Lymphocyte % 17.1 % Monocyte % 6.5 % Eosinophil % 0.7 % Basophils % 0.4 % NRBC % 0 % PSA 20.630 ng/mL Test performed on January 06, 2020 08:18 Testosterone, Total 2.5 ng/dL Test performed on Oct 07, 2019 12:35 TSH 2.52 uIU/mL Vitamin B12 478 pg/mL Impression: 1. Patient with Isaac score 7 adenocarcinoma of the prostate, stage IV, with bone scan and CT evidence of extensive osteoblastic metastatic disease. CT also showed small noncalcified pulmonary nodules bilaterally, which was a nonspecific finding but also suspicious. 2. He began treatment with bicalutamide 50 mg daily following needle biopsy of the prostate on 12/13/2018. 3. He began androgen deprivation therapy with Zoladex on 12/26/2018, and he continued the bicalutamide. His other medical illnesses include: 4. Hypertension. 5. Hyperlipidemia. 6. Coronary artery disease with previous angioplasty/stent placement. 7. He has a history of paroxysmal atrial fibrillation. He is on chronic anticoagulation with warfarin. 8. He has a history of mild asthma. He has had a very good response to the androgen deprivation therapy. As of his follow-up visit in September 2019 his PSA had stabilized at 1.33 ng/mL compared to a pretreatment level greater than 10,000. However, it has now increased to 13.57 ng/mL, and he was showing some decline in his clinical status. Mr. Sahu began enzalutamide on February 19, 2020 at 160 mg orally daily. His PSA at that time was 22.5. He was continued on prednisone 5 mg daily and continues with Zoladex 10.8 mg every 3 months which will be due again in March 2020. He has tolerated it well thus far. Plan: 1. Continue Zoladex 10.8 mg by subcutaneous injection-last given on 01/06/2020. 2. Continue enzalutamide 160 mg po daily 3. continue prednisone 5 mg daily. 4. remain off the bicalutamide. 5. AVOID GRAPEFRUIT PRODUCTS WITH ENZALUTAMIDE 6. Today's labs were reivewed in detail and discussed wtih Mr Sahu and a copy was given to him. WBC 10.7, Hgb 13.3, platelets 208,000 ANC is 8000. Creatinine 1.0 LFTs are normal PSA is 20.6. 7. We will plan to see him back in 1 month at which time he will be due for Zoladex. I have asked for a CBC CMP and PSA at that time as well. 8. Mr. Pink was instructed to contact us in the interim should questions or problems arise. Signed By: Vernon Wolff-, AOCNP David Zavaleta MD <<Signature on File>>
== END 2020-03-03 09:36 | disposition home or self-care (01) ==
LOC: ONCMED 09:40
PROVIDERS: PCP Family Medicine; Visit Provider Nurse Practitioner
DX: C61 Malignant neoplasm of prostate (principal); C79.51 Secondary malignant neoplasm of bone; I10 Essential (primary) hypertension; E78.5 Hyperlipidemia, unspecified; I25.10 Atherosclerotic heart disease of native coronary artery without angina pectoris; J45.909 Unspecified asthma, uncomplicated; I48.0 Paroxysmal atrial fibrillation; Z51.81 Encounter for therapeutic drug level monitoring; Z79.899 Other long term (current) drug therapy; Z79.818 Long term (current) use of other agents affecting estrogen receptors and estrogen levels; Z95.5 Presence of coronary angioplasty implant and graft; Z95.1 Presence of aortocoronary bypass graft; Z79.01 Long term (current) use of anticoagulants; Z79.52 Long term (current) use of systemic steroids
CPT/HCPCS: 80053; 84153; 85025; 99214

== ENCOUNTER 2020-04-07 13:36 | Outpatient (CLI) | payer MEDICARE, SELFPAY ==
[2020-04-07 14:40] LABS: Prostate Specific Antigen 0.844 ng/mL (0-4)
[2020-04-07] MEDS: lidocaine 1% INJ 20 mL INJECTION (15:30)
[2020-04-07] MEDS: goserelin acetate 10.8 mg Implant IM (15:40)
--- NOTE | 2020-04-11 13:55 | ONC FU_ITS ---
Dr. Zavaleta Patient Follow-Up Note Patient: David Sahu Unit #: [id number]: 1940 Dicatated By: David Zavaleta M.D.Date of Visit:Apr 07, 2020 Onc Med Follow-up/Prog Note Chief Complaint: Prostate cancer. 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 Approximately 2 years ago he had become stove up with some generalized joint pain and stiffness. He had seen Dr. Calderon at that time, and he had dramatic symptomatic improvement with a relatively short course of steroid therapy on prednisone. He had not become symptomatic again until September or October of this year. He then had a follow-up visit with Dr. Calderon in November, and his PSA level was found to be greater than 10,000 ng/mL. He was seen by Dr. Stock on 12/03/2018. He was noted to have a rock hard prostate on exam. Repeat PSA level was reported at greater than 5000 ng/mL. His further evaluation with bone scan on 12/11/2018 showed extensive bony metastatic disease involving axial and proximal appendicular skeletal structures. CT of the abdomen/pelvis showed multiple noncalcified pulmonary nodules at the lung bases, the largest measuring 8.4 mm in the left lower lobe. The liver appeared normal. There was no renal mass or obstruction. The prostate was enlarged measuring 6.7 x 5.6 x 5.2 cm. An enlarged right iliac lymph node measured 1.9 x 1.2 cm. 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 He had a follow-up visit with Dr. Stock on 12/13/2018. At that time he underwent needle biopsy of the prostate, and he then started bicalutamide 50 mg daily. Pathology showed prostatic adenocarcinoma, Isaac score 4+3 = 7. I had seen him initially on 12/26/2018. At that point he began treatment with Zoladex 10.8 mg, and he continued the bicalutamide. As of 02/03/2019 the PSA level had decreased to 146.30 ng/mL. During subsequent follow-up and continue to decline gradually. As of June 2019 it was down to 1.13 ng/mL. He other medical illnesses include hypertension, hyperlipidemia, and coronary artery disease. He has a history of paroxysmal atrial fibrillation. He underwent coronary angioplasty/stent placement in 1998. He has a history of smoking 1 pack of cigarettes daily for 20 years, but he had quit smoking sometime in his 40s. INTERIM HISTORY: As of his follow-up visit on 10/07/2019 his PSA had stabilized at 1.33 ng/mL. He was reporting increased joint pain and stiffness. He otherwise appeared stable clinically. He continued treatment with Zoladex and bicalutamide, and I did have him start a low dosage of prednisone. However, by December 2019 the PSA had increased to 13.57 ng/mL. He stopped the bicalutamide. As of 02/18/2020 the PSA had further increased to 22.550 ng/mL. At that point, he began anti-androgen therapy with enzalutamide 160 mg daily. He is seen for a follow-up visit. He says his energy has been a little low, but he is still doing light work. ECOG score is 1. He has good appetite. He has not had fever. He does have hot flashes. He has been having trouble with his pain in his right hip which radiates around to the back. He is not having any other pain right now. He says his joints are pretty good. He does not complain of shortness of breath. He occasionally has chest congestion and cough. He does not complain of chest pain. He occasionally has acid reflux. Bowel function has been pretty good with fiber. He says his bladder function is fair, but he does have some urgency with urination. He does not complain of headache or dizziness. He says the numbness is better. He sometimes has depression. Medications: Albuterol Sulfate 1 (108 (90 base) mcg/act) Aerosol Powder, Breath Activated Inhalation PRN, Aspirin 1 Tablet (of 81 mg) Oral daily, Atorvastatin Calcium 1 Tablet (of 40 mg) Oral daily, Bicalutamide 1 Tablet (of 50 mg) Oral daily, Lisinopril 1 Tablet (of 10 mg) Oral daily, Metoprolol Tartrate 1 Tablet (of 50 mg) Oral b.i.d., Multivitamin Adults 1 Tablet Oral daily, Warfarin Sodium (5 mg) Tablet Oral Take as Directed Allergies: HYDROcodone-Acetaminophen Review of Systems: Constitutional - His energy is a little low. Appetite is good and weight is stable. No fever. He has hot flashes. ECOG score is 1, ENMT - He has very little sinus drainage. No mouth sores. No sore throat or difficulty swallowing, Hematologic/Lymphatic - He has easy bruising, Respiratory - No shortness of breath. He has occasional chest congestion and cough. No pleuritic pain or hemoptysis, Cardiovascular - No angina pain. No palpitations, Gastrointestinal - No nausea or vomiting. He has occasional acid reflux. No diarrhea or constipation. No blood in the stool or black stools, Genitourinary (M) - Bladder function is fair. No dysuria or hematuria. No urinary frequency. He has urgency with urination. No incontinence, Musculoskeletal - His joints are doing better. He has been having trouble with his right hip, Neurologic - No headache or dizziness. No numbness or tingling. No other focal neurologic symptoms, Psychiatric - He sometimes has depression. No insomnia. Vital Signs: Performed on Apr 07, 2020 15:05 Height - 69.00 in Weight - 215.2 lbs (HIGH) BSA - 2.13 sq.m BMI - 31.78 (HIGH) Temperature - 97.4 F (LOW) Pulse - 67 /min Respiration - 20 /min BP - 129/66 mm(hg) O2 Sat - 97 % Pain - 5 Physical Examination: Constitutional - He looks pretty good generally. He has some slgiht facial swelling, Eyes - Sclerae nonicteric. Conjunctivae clear, ENMT - No lesions noted in the oral cavity, Hematologic/Lymphatic - No cervical, clavicular, or axillary adenopathy, Respiratory - Lungs are clear with good air movement bilaterally, Cardiovascular - Heart rhythm is regular. There is no murmur, gallop, or rub noted, Abdomen - Moderately distended. Liver and spleen are not enlarged. There is no abdominal mass or ascites noted and there is no inguinal adenopathy, Extremities - Mild edema. He has scattered purpuric lesions, Neurologic - No focal neurologic deficits noted. Lab/Imaging: Test performed on Apr 07, 2020 13:43 PSA 0.844 ng/mL Impression: 1. Patient with Isaac score 7 adenocarcinoma of the prostate, stage IV, with bone scan and CT evidence of extensive osteoblastic metastatic disease. CT also showed small noncalcified pulmonary nodules bilaterally, which was a nonspecific finding but also suspicious. 2. He began treatment with bicalutamide 50 mg daily following needle biopsy of the prostate on 12/13/2018. 3. He began androgen deprivation therapy with Zoladex on 12/26/2018, and he continued the bicalutamide. His other medical illnesses include: 4. Hypertension. 5. Hyperlipidemia. 6. Coronary artery disease with previous angioplasty/stent placement. 7. He has a history of paroxysmal atrial fibrillation. He is on chronic anticoagulation with warfarin. 8. He has a history of mild asthma. He initially had a very good response to the androgen deprivation therapy. As of his follow-up visit in September 2019 his PSA had stabilized at 1.33 ng/mL compared to a pretreatment level greater than 10,000. However, as of December 2019 it had increased to 13.57 ng/mL, and he was showing some decline in his clinical status. As of 02/18/2020 there was further increase in the PSA to 22.550 ng/mL despite having stopped the bicalutamide. At that point he began further anti-androgen therapy with enzalutamide 160 mg daily. Thus far he has been tolerating it well, and he is showing a very good response by PSA level. There also has been symptomatic improvement, particularly his joint pain. Plan: He will be given Zoladex 10.8 mg by subcutaneous injection. He will continue enzalutamide 160 daily. He will continue prednisone with the dosage increased to 10 mg alternating with 5 mg daily. He will be scheduled for a follow-up visit in 3 months. Signed By: David Zavaleta M.D. <<Signature on File>>
== END 2020-04-07 13:37 | disposition home or self-care (01) ==
LOC: ONCMED 13:36
PROVIDERS: PCP Family Medicine; Visit Provider Internal Medicine Medical Oncology
DX: C61 Malignant neoplasm of prostate (principal); C79.51 Secondary malignant neoplasm of bone; I10 Essential (primary) hypertension; E78.5 Hyperlipidemia, unspecified; I25.10 Atherosclerotic heart disease of native coronary artery without angina pectoris; I48.0 Paroxysmal atrial fibrillation; J45.909 Unspecified asthma, uncomplicated; Z79.818 Long term (current) use of other agents affecting estrogen receptors and estrogen levels; Z95.5 Presence of coronary angioplasty implant and graft; Z95.1 Presence of aortocoronary bypass graft; Z79.01 Long term (current) use of anticoagulants; Z79.899 Other long term (current) drug therapy; Z79.52 Long term (current) use of systemic steroids
CPT/HCPCS: 84153; 96372; 96402; 99214; J9202

== ENCOUNTER 2020-07-13 14:13 | Outpatient (CLI) | payer MEDICARE, SELFPAY ==
[2020-07-13 14:43] LABS: Basophils % 0.3 %; Eosinophils % 0.3 %; Hematocrit 43.9 % (42.0-52.0); Hemoglobin 14.5 g/dL (11.7-16.6); Lymphocytes # 1.6 10^3/uL (0.8-4.8); Lymphocytes % 17.3 %; Mean Corpuscular Hemoglobin 32.7 pg (28.0-34.0); Mean Corpuscular Volume 98.9 fL (80-94); Mean Platelet Volume 10.9 fL (7.4-10.4); Monocytes # 0.5 10^3/uL (0.2-0.9); Monocytes % 5.1 %; Neutrophils # 7.14 10^3/uL (1.8-7.7); Neutrophils % 76.6 %; Nucleated Red Blood Cells % 0 %; Platelet Count 230 10^3/cmm (130-400); Red Blood Count 4.44 10^6/uL (4.1-5.3); Red Cell Distribution Width 12.3 % (12.1-15.1); White Blood Count 9.3 10^3/uL (4.0-10.0)
[2020-07-13 15:15] LABS: Alanine Aminotransferase 23 U/L (0-41); Albumin Level 4.2 g/dL (3.5-5.2); Alkaline Phosphatase 87 IU/L (40-130); Anion Gap 10.1 (5-19); Aspartate Amino Transferase 16 U/L (0-40); Blood Urea Nitrogen 11 mg/dL (8-23); Calcium 9.3 mg/dL (8.5-10.5); Carbon Dioxide 28 mmol/L (22-29); Chloride 108 mmol/L (98-107); Globulin 2.2 g/dL (1.3-4.6); Glucose 128 mg/dL (65-115); Osmolality Calculated 295 mOsm/kg (285-295); Potassium 4.1 mmol/L (3.5-5.1); Sodium 142 mmol/L (136-145); Testosterone Total 2.5 ng/dL (193-740); Total Bilirubin 0.4 mg/dL (0.15-1.2); Total Protein 6.4 g/dL (6.6-8.7)
[2020-07-13 15:16] LABS: Prostate Specific Antigen 0.104 ng/mL (0-4)
[2020-07-13] MEDS: lidocaine 1% INJ 20 mL INJECTION (16:40)
[2020-07-13] MEDS: goserelin acetate 10.8 mg Implant IM (16:45)
--- NOTE | 2020-07-16 15:12 | ONC FU_ITS ---
Dr. Zavaleta Patient Follow-Up Note Patient: David Sahu Unit #: [id number]: 1940 Dicatated By: David Zavaleta M.D.Date of Visit:Jul 13, 2020 Onc Med Follow-up/Prog Note Chief Complaint: Prostate cancer. 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 Approximately 2 years ago he had become stove up with some generalized joint pain and stiffness. He had seen Dr. Calderon at that time, and he had dramatic symptomatic improvement with a relatively short course of steroid therapy on prednisone. He had not become symptomatic again until September or October of this year. He then had a follow-up visit with Dr. Calderon in November, and his PSA level was found to be greater than 10,000 ng/mL. He was seen by Dr. Stock on 12/03/2018. He was noted to have a rock hard prostate on exam. Repeat PSA level was reported at greater than 5000 ng/mL. His further evaluation with bone scan on 12/11/2018 showed extensive bony metastatic disease involving axial and proximal appendicular skeletal structures. CT of the abdomen/pelvis showed multiple noncalcified pulmonary nodules at the lung bases, the largest measuring 8.4 mm in the left lower lobe. The liver appeared normal. There was no renal mass or obstruction. The prostate was enlarged measuring 6.7 x 5.6 x 5.2 cm. An enlarged right iliac lymph node measured 1.9 x 1.2 cm. 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 He had a follow-up visit with Dr. Stock on 12/13/2018. At that time he underwent needle biopsy of the prostate, and he then started bicalutamide 50 mg daily. Pathology showed prostatic adenocarcinoma, Isaac score 4+3 = 7. I had seen him initially on 12/26/2018. At that point he began treatment with Zoladex 10.8 mg, and he continued the bicalutamide. As of 02/03/2019 the PSA level had decreased to 146.30 ng/mL. During subsequent follow-up and continue to decline gradually. As of June 2019 it was down to 1.13 ng/mL. He other medical illnesses include hypertension, hyperlipidemia, and coronary artery disease. He has a history of paroxysmal atrial fibrillation. He underwent coronary angioplasty/stent placement in 1998. He has a history of smoking 1 pack of cigarettes daily for 20 years, but he had quit smoking sometime in his 40s. INTERIM HISTORY: As of his follow-up visit on 10/07/2019 his PSA had stabilized at 1.33 ng/mL. He was reporting increased joint pain and stiffness. He otherwise appeared stable clinically. He continued treatment with Zoladex and bicalutamide, and I did have him start a low dosage of prednisone. However, by December 2019 the PSA had increased to 13.57 ng/mL. He stopped the bicalutamide. As of 02/18/2020 the PSA had further increased to 22.550 ng/mL. At that point, he began anti-androgen therapy with enzalutamide 160 mg daily. His repeat PSA level on 04/07/2020 had declined significantly, to 0.844 ng/mL. He is seen for a follow-up visit. He complains that he has felt tired and he has been less active. His ECOG score is 2. He has good appetite. He has not had fever. He does have some hot flashes and sweating. He reports having a little aching in his right hip. He has no other joint or bone pain. He has no shortness of breath, cough, or chest pain. Bowel and bladder function remain adequate. He has no focal neurologic symptoms. Medications: Albuterol Sulfate 1 (108 (90 base) mcg/act) Aerosol Powder, Breath Activated Inhalation PRN, Aspirin 1 Tablet (of 81 mg) Oral daily, Atorvastatin Calcium 1 Tablet (of 40 mg) Oral daily, Bicalutamide 1 Tablet (of 50 mg) Oral daily, Lisinopril 1 Tablet (of 10 mg) Oral daily, Metoprolol Tartrate 1 Tablet (of 50 mg) Oral b.i.d., Multivitamin Adults 1 Tablet Oral daily, Warfarin Sodium (5 mg) Tablet Oral Take as Directed Allergies: HYDROcodone-Acetaminophen Review of Systems: Constitutional - He complains that he feels tired and he has been less active. Appetite is good. He has not had fever. He does have hot flashes and sweating. ECOG score is 2, ENMT - He has some slight clear nasal drainage. No mouth sores. No sore throat or difficulty swallowing, Hematologic/Lymphatic - He says he bruises very easily, Respiratory - No shortness of breath. No cough. No pleuritic pain or hemoptysis, Cardiovascular - No angina pain. No palpitations, Gastrointestinal - No nausea or vomiting. He occasionally has heartburn. No diarrhea or constipation. No blood in the stool or black stools, Genitourinary (M) - No dysuria or hematuria. He does have some dribbling. No urgency or incontinence, Musculoskeletal - He has pain in his right hip. He currently has no other joint or bone pain, Integumentary - No skin rash, Neurologic - No headache or dizziness. No numbness or tingling. No other focal neurologic symptoms, Psychiatric - No anxiety or depression. No insomnia. Vital Signs: Performed on Jul 13, 2020 16:01 Height - 69.00 in Weight - 213.4 lbs (LOW) BSA - 2.12 sq.m BMI - 31.51 (HIGH) Temperature - 97.8 F (LOW) Pulse - 70 /min Respiration - 20 /min BP - 146/71 mm(hg) (HIGH) O2 Sat - 97 % Pain - 2 Fatigue - 9 Physical Examination: Constitutional - He looks pretty good generally, Eyes - Sclerae nonicteric. Conjunctivae clear, ENMT - No lesions noted in the oral cavity, Hematologic/Lymphatic - No cervical, clavicular, or axillary adenopathy, Respiratory - Lungs are clear with good air movement bilaterally, Cardiovascular - Heart rhythm is regular with occasional premature beats. There is no murmur, gallop, or rub noted, Abdomen - Mildly distended but soft. Liver and spleen are not enlarged. There is no abdominal mass or ascites noted and there is no inguinal adenopathy, Extremities - Slight edema. He has scattered purpuric lesions, Neurologic - No focal neurologic deficits noted. Lab/Imaging: Test performed on Jul 13, 2020 14:33 Sodium 142 mmol/L Testosterone, Total 2.5 ng/dL Potassium 4.1 mmol/L Chloride 108 mmol/L CO2 28 mmol/L Anion Gap 10.1 BUN 11 mg/dL Creatinine 0.8 mg/dL Cr Clearance (Est) 99.1500 mL/min Glucose 128 mg/dL Osmolality - Calculated 295 mOsm/kg Calcium 9.3 mg/dL Protein, Total 6.4 g/dL Albumin 4.2 g/dL Globulin 2.2 g/dL Bilirubin, Total 0.4 mg/dL ALT (SGPT) 23 U/L AST (SGOT) 16 U/L Alkaline Phosphatase 87 IU/L WBC 9.3 10 3/uL RBC 4.44 10 6/uL HGB 14.5 g/dL HCT 43.9 % MCV 98.9 fL MCH 32.7 pg MCHC 33.0 g/dL RDW 12.3 % Platelet Count 230 10 3/cmm MPV 10.9 fL Neutrophils 7.14 10 3/uL Lymphocytes 1.6 10 3/uL Monocytes 0.5 10 3/uL Eosinophils 0.0 10 3/uL Basophils 0.0 10 3/uL Neutrophil % 76.6 % Lymphocyte % 17.3 % Monocyte % 5.1 % Eosinophil % 0.3 % Basophils % 0.3 % NRBC % 0 % PSA 0.104 ng/mL Impression: 1. Patient with [place] score 7 adenocarcinoma of the prostate, stage IV, with bone scan and CT evidence of extensive osteoblastic metastatic disease. CT also showed small noncalcified pulmonary nodules bilaterally, which was a nonspecific finding but also suspicious. 2. He began treatment with bicalutamide 50 mg daily following needle biopsy of the prostate on 12/13/2018. 3. He began androgen deprivation therapy with Zoladex on 12/26/2018, and he continued the bicalutamide. His other medical illnesses include: 4. Hypertension. 5. Hyperlipidemia. 6. Coronary artery disease with previous angioplasty/stent placement. 7. He has a history of paroxysmal atrial fibrillation. He is on chronic anticoagulation with warfarin. 8. He has a history of mild asthma. He initially had a very good response to the androgen deprivation therapy. As of his follow-up visit in September 2019 his PSA had stabilized at 1.33 ng/mL compared to a pretreatment level greater than 10,000. However, as of December 2019 it had increased to 13.57 ng/mL, and he was showing some decline in his clinical status. As of 02/18/2020 there was further increase in the PSA to 22.550 ng/mL despite having stopped the bicalutamide. At that point he began further anti-androgen therapy with enzalutamide 160 mg daily. He has had a very good response by PSA level and he has had significant symptomatic improvement, though he has been more fatigued on the enzalutamide. He seems to tolerate it well otherwise. Plan: He will be given Zoladex 10.8 mg by subcutaneous injection. He will continue enzalutamide 160 daily. I will have him try increasing prednisone back up to 10 mg daily. I will see him again in 3 months, or sooner as needed. Signed By: David Zavaleta M.D. <<Signature on File>>
== END 2020-07-13 14:14 | disposition home or self-care (01) ==
LOC: ONCMED 14:16
PROVIDERS: PCP Family Medicine; Visit Provider Internal Medicine Medical Oncology
DX: C61 Malignant neoplasm of prostate (principal); C79.51 Secondary malignant neoplasm of bone; Z79.818 Long term (current) use of other agents affecting estrogen receptors and estrogen levels; Z79.52 Long term (current) use of systemic steroids; Z79.899 Other long term (current) drug therapy; I10 Essential (primary) hypertension; E78.5 Hyperlipidemia, unspecified; I25.10 Atherosclerotic heart disease of native coronary artery without angina pectoris; I48.0 Paroxysmal atrial fibrillation; J45.909 Unspecified asthma, uncomplicated; Z79.01 Long term (current) use of anticoagulants
CPT/HCPCS: 80053; 84153; 84403; 85025; 96372; 96402; 99214; J9202

== ENCOUNTER 2020-10-11 12:20 | Outpatient (CLI) | payer MEDICARE, SELFPAY ==
[2020-10-11 12:56] LABS: Basophils % 0.3 %; Eosinophils # 0.1 10^3/uL (0.0-0.8); Eosinophils % 0.9 %; Hematocrit 43.5 % (42.0-52.0); Hemoglobin 14.4 g/dL (11.7-16.6); Lymphocytes # 1.7 10^3/uL (0.8-4.8); Lymphocytes % 14.6 %; Mean Corpuscular HGB Conc 33.1 g/dL (30.0-36.0); Mean Corpuscular Hemoglobin 32.7 pg (28.0-34.0); Mean Corpuscular Volume 98.6 fL (80-94); Monocytes # 0.8 10^3/uL (0.2-0.9); Monocytes % 7.2 %; Neutrophils # 8.76 10^3/uL (1.8-7.7); Neutrophils % 76.6 %; Nucleated Red Blood Cells % 0 %; Platelet Count 278 10^3/cmm (130-400); Red Blood Count 4.41 10^6/uL (4.1-5.3); Red Cell Distribution Width 12.7 % (12.1-15.1); White Blood Count 11.5 10^3/uL (4.0-10.0)
[2020-10-11 13:43] LABS: Alanine Aminotransferase 21 U/L (0-41); Albumin Level 4.1 g/dL (3.5-5.2); Alkaline Phosphatase 96 IU/L (40-130); Anion Gap 13.1 (5-19); Aspartate Amino Transferase 12 U/L (0-40); Blood Urea Nitrogen 12 mg/dL (8-23); Calcium 9.6 mg/dL (8.5-10.5); Carbon Dioxide 28 mmol/L (22-29); Chloride 104 mmol/L (98-107); Globulin 2.7 g/dL (1.3-4.6); Glucose 108 mg/dL (65-115); Osmolality Calculated 292 mOsm/kg (285-295); Potassium 4.1 mmol/L (3.5-5.1); Sodium 141 mmol/L (136-145); Total Bilirubin 0.5 mg/dL (0.15-1.2); Total Protein 6.8 g/dL (6.6-8.7)
[2020-10-11] MEDS: lidocaine 1% INJ 20 mL INJECTION (14:42)
[2020-10-11 14:45] LABS: Testosterone Total 2.5 ng/dL (193-740)
[2020-10-11] MEDS: goserelin acetate 10.8 mg Implant IM (14:55)
--- NOTE | 2020-10-12 10:43 | ONC FU_ITS ---
Dr. Zavaleta Patient Follow-Up Note Patient: David Sahu Unit #: [id number]: 1940 Dicatated By: David Zavaleta M.D.Date of Visit:Oct 11, 2020 Onc Med Follow-up/Prog Note Chief Complaint: Prostate cancer. 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 Approximately 2 years ago he had become stove up with some generalized joint pain and stiffness. He had seen Dr. Calderon at that time, and he had dramatic symptomatic improvement with a relatively short course of steroid therapy on prednisone. He had not become symptomatic again until September or October of this year. He then had a follow-up visit with Dr. Calderon in November, and his PSA level was found to be greater than 10,000 ng/mL. He was seen by Dr. Stock on 12/03/2018. He was noted to have a rock hard prostate on exam. Repeat PSA level was reported at greater than 5000 ng/mL. His further evaluation with bone scan on 12/11/2018 showed extensive bony metastatic disease involving axial and proximal appendicular skeletal structures. CT of the abdomen/pelvis showed multiple noncalcified pulmonary nodules at the lung bases, the largest measuring 8.4 mm in the left lower lobe. The liver appeared normal. There was no renal mass or obstruction. The prostate was enlarged measuring 6.7 x 5.6 x 5.2 cm. An enlarged right iliac lymph node measured 1.9 x 1.2 cm. 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 He had a follow-up visit with Dr. Stock on 12/13/2018. At that time he underwent needle biopsy of the prostate, and he then started bicalutamide 50 mg daily. Pathology showed prostatic adenocarcinoma, Isaac score 4+3 = 7. I had seen him initially on 12/26/2018. At that point he began treatment with Zoladex 10.8 mg, and he continued the bicalutamide. As of 02/03/2019 the PSA level had decreased to 146.30 ng/mL. During subsequent follow-up and continue to decline gradually. As of June 2019 it was down to 1.13 ng/mL. He other medical illnesses include hypertension, hyperlipidemia, and coronary artery disease. He has a history of paroxysmal atrial fibrillation. He underwent coronary angioplasty/stent placement in 1998. He has a history of smoking 1 pack of cigarettes daily for 20 years, but he had quit smoking sometime in his 40s. INTERIM HISTORY: As of his follow-up visit on 10/07/2019 his PSA had stabilized at 1.33 ng/mL. He was reporting increased joint pain and stiffness. He otherwise appeared stable clinically. He continued treatment with Zoladex and bicalutamide, and I did have him start a low dosage of prednisone. However, by December 2019 the PSA had increased to 13.57 ng/mL. He stopped the bicalutamide. As of 02/18/2020 the PSA had further increased to 22.550 ng/mL. At that point, he began anti-androgen therapy with enzalutamide 160 mg daily. His repeat PSA level on 04/07/2020 had declined significantly, to 0.844 ng/mL, and by 07/13/2020 had further decreased to 0.104 ng/mL. He is seen for a follow-up visit. He has been feeling pretty good generally, though he continues to have somewhat limited activity tolerance. He says the longer he sits to hard it is for him to get up. He says he tends to shuffle his feet a lot, but he does tend to improve the longer he is up and about. His ECOG score is 1. He has good appetite. He has not had fever. He does have pretty bad hot flashes/sweating. He has some shortness of breath. He does not complain of cough and he has not been having chest pain. He has no GI complaints. He does report having overactive bladder with frequent urination and some urgency. He has no significant joint or bone pain. He does not complain of headache or dizziness. He has no focal neurologic symptoms. He does report having some depression. Medications: Albuterol Sulfate 1 (108 (90 base) mcg/act) Aerosol Powder, Breath Activated Inhalation PRN, Aspirin 1 Tablet (of 81 mg) Oral daily, Atorvastatin Calcium 1 Tablet (of 40 mg) Oral daily, Bicalutamide 1 Tablet (of 50 mg) Oral daily, Lisinopril 1 Tablet (of 10 mg) Oral daily, Metoprolol Tartrate 1 Tablet (of 50 mg) Oral b.i.d., Multivitamin Adults 1 Tablet Oral daily, Warfarin Sodium (5 mg) Tablet Oral Take as Directed Allergies: HYDROcodone-Acetaminophen Vital Signs: Performed on Oct 11, 2020 14:13 Height - 69.00 in Weight - 210.8 lbs (LOW) BSA - 2.11 sq.m BMI - 31.13 (HIGH) Temperature - 97.8 F (LOW) Pulse - 73 /min Respiration - 18 /min BP - 142/75 mm(hg) (HIGH) O2 Sat - 98 % Pain - 0 Fatigue - 5 Physical Examination: Constitutional - He looks pretty good generally, Eyes - Sclerae nonicteric. Conjunctivae clear, ENMT - No lesions noted in the oral cavity, Hematologic/Lymphatic - No cervical, clavicular, or axillary adenopathy, Respiratory - Lungs are clear with good air movement bilaterally, Cardiovascular - Heart rhythm is regular. There is no murmur, gallop, or rub noted, Abdomen - Mildly distended but soft. Liver and spleen are not enlarged. There is no abdominal mass or ascites noted and there is no inguinal adenopathy, Extremities - No edema, Neurologic - No focal neurologic deficits noted. Lab/Imaging: Test performed on Oct 11, 2020 12:31 Sodium 141 mmol/L Testosterone, Total 2.5 ng/dL Potassium 4.1 mmol/L Chloride 104 mmol/L CO2 28 mmol/L Anion Gap 13.1 BUN 12 mg/dL Creatinine 0.8 mg/dL Cr Clearance (Est) 97.94 mL/min Glucose 108 mg/dL Osmolality - Calculated 292 mOsm/kg Calcium 9.6 mg/dL Protein, Total 6.8 g/dL Albumin 4.1 g/dL Globulin 2.7 g/dL Bilirubin, Total 0.5 mg/dL ALT (SGPT) 21 U/L AST (SGOT) 12 U/L Alkaline Phosphatase 96 IU/L WBC 11.5 10 3/uL RBC 4.41 10 6/uL HGB 14.4 g/dL HCT 43.5 % MCV 98.6 fL MCH 32.7 pg MCHC 33.1 g/dL RDW 12.7 % Platelet Count 278 10 3/cmm MPV 11.0 fL Neutrophils 8.76 10 3/uL Lymphocytes 1.7 10 3/uL Monocytes 0.8 10 3/uL Eosinophils 0.1 10 3/uL Basophils 0.0 10 3/uL Neutrophil % 76.6 % Lymphocyte % 14.6 % Monocyte % 7.2 % Eosinophil % 0.9 % Basophils % 0.3 % NRBC % 0 % PSA 0.070 ng/mL Problem List: 1. Isaac score 7 adenocarcinoma of the prostate, stage IV, with bone scan and CT evidence of extensive osteoblastic metastatic disease. CT also showed small noncalcified pulmonary nodules bilaterally, which was a nonspecific finding but also suspicious. He is on androgen deprivation therapy. 2. Hypertension. 3. Hyperlipidemia. 4. Coronary artery disease with previous angioplasty/stent placement. 5. He has a history of paroxysmal atrial fibrillation. He is on chronic anticoagulation with warfarin. 6. He has a history of mild asthma. Problems Addressed with this Encounter and Plan: Patient with Isaac score 7 adenocarcinoma of the prostate, stage IV, with bone scan and CT evidence of extensive osteoblastic metastatic disease. CT also showed small noncalcified pulmonary nodules bilaterally, which was a nonspecific finding but also suspicious. He began treatment with bicalutamide 50 mg daily following needle biopsy of the prostate on 12/13/2018. He then began androgen deprivation therapy with Zoladex on 12/26/2018, and he continued the bicalutamide. He initially had a very good response to the androgen deprivation therapy. As of his follow-up visit in September 2019 his PSA had stabilized at 1.33 ng/mL compared to a pretreatment level greater than 10,000. However, as of December 2019 it had increased to 13.57 ng/mL, and he was showing some decline in his clinical status. As of 02/18/2020 there was further increase in the PSA to 22.550 ng/mL despite having stopped the bicalutamide. At that point he began further anti-androgen therapy with enzalutamide 160 mg daily. He has been showing a very good response by PSA level. He also has had symptomatic improvement, though he has had some fatigue with the enzalutamide. He also has required low-dose prednisone for management of associated joint pain. He will be given Zoladex 10.8 mg by subcutaneous injection. He will continue enzalutamide 160 daily. He will continue prednisone at 10 mg daily. I will see him again in 3 months. Signed By: David Zavaleta M.D. <<Signature on File>>
== END 2020-10-11 12:21 | disposition home or self-care (01) ==
LOC: ONCMED 12:23
PROVIDERS: PCP Family Medicine; Visit Provider Internal Medicine Medical Oncology
DX: C61 Malignant neoplasm of prostate (principal)
CPT/HCPCS: 80053; 84153; 84403; 85025; 96372; 96402; 99214; J9202

== ENCOUNTER 2021-01-14 08:17 | Outpatient (CLI) | payer MEDICARE, SELFPAY ==
[2021-01-14 08:57] LABS: Basophils % 0.5 %; Eosinophils # 0.1 10^3/uL (0.0-0.8); Eosinophils % 1.1 %; Hematocrit 41.9 % (42.0-52.0); Hemoglobin 13.8 g/dL (11.7-16.6); Lymphocytes # 1.8 10^3/uL (0.8-4.8); Lymphocytes % 25.3 %; Mean Corpuscular HGB Conc 32.9 g/dL (30.0-36.0); Mean Corpuscular Hemoglobin 33.1 pg (28.0-34.0); Mean Corpuscular Volume 100.5 fL (80-94); Mean Platelet Volume 11.1 fL (7.4-10.4); Monocytes # 0.7 10^3/uL (0.2-0.9); Monocytes % 9.6 %; Neutrophils % 63.2 %; Nucleated Red Blood Cells % 0 %; Platelet Count 228 10^3/cmm (130-400); Red Blood Count 4.17 10^6/uL (4.1-5.3); Red Cell Distribution Width 12.6 % (12.1-15.1); White Blood Count 7.3 10^3/uL (4.0-10.0)
[2021-01-14 09:15] LABS: Prostate Specific Antigen 0.056 ng/mL (0-4)
[2021-01-14 09:26] LABS: Alanine Aminotransferase 17 U/L (0-41); Albumin Level 4.1 g/dL (3.5-5.2); Alkaline Phosphatase 86 IU/L (40-130); Anion Gap 13.8 (5-19); Aspartate Amino Transferase 12 U/L (0-40); Blood Urea Nitrogen 20 mg/dL (8-23); Calcium 8.7 mg/dL (8.5-10.5); Carbon Dioxide 26 mmol/L (22-29); Chloride 107 mmol/L (98-107); Globulin 2.1 g/dL (1.3-4.6); Glucose 112 mg/dL (65-115); Osmolality Calculated 299 mOsm/kg (285-295); Potassium 3.8 mmol/L (3.5-5.1); Sodium 143 mmol/L (136-145); Total Bilirubin 0.6 mg/dL (0.15-1.2); Total Protein 6.2 g/dL (6.6-8.7)
[2021-01-14 09:27] LABS: Testosterone Total < 2.5 ng/dL (193-740)
[2021-01-14] MEDS: lidocaine 1% INJ 20 mL INJECTION (10:45)
[2021-01-14] MEDS: goserelin acetate 10.8 mg Implant SUBCUT (11:00)
--- NOTE | 2021-01-14 15:40 | ONC FU_ITS ---
Dr. Zavaleta Patient Follow-Up Note Patient: David Sahu Unit #: [id number]: 1940 Dicatated By: David Zavaleta M.D.Date of Visit:Jan 14, 2021 Onc Med Follow-up/Prog Note Chief Complaint: Prostate cancer. 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 Several ago he had become stove up with some generalized joint pain and stiffness. He had seen Dr. Calderon at that time, and he had dramatic symptomatic improvement with a relatively short course of steroid therapy on prednisone. He had not become symptomatic again until September or October of this year. He then had a follow-up visit with Dr. Calderon in November 2018, and his PSA level was found to be greater than 10,000 ng/mL. He was seen by Dr. Stock on 12/03/2018. He was noted to have a rock hard prostate on exam. Repeat PSA level was reported at greater than 5000 ng/mL. His further evaluation with bone scan on 12/11/2018 showed extensive bony metastatic disease involving axial and proximal appendicular skeletal structures. CT of the abdomen/pelvis showed multiple noncalcified pulmonary nodules at the lung bases, the largest measuring 8.4 mm in the left lower lobe. The liver appeared normal. There was no renal mass or obstruction. The prostate was enlarged measuring 6.7 x 5.6 x 5.2 cm. An enlarged right iliac lymph node measured 1.9 x 1.2 cm. 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 He had a follow-up visit with Dr. Stock on 12/13/2018. At that time he underwent needle biopsy of the prostate, and he then started bicalutamide 50 mg daily. Pathology showed prostatic adenocarcinoma, Isaac score 4+3 = 7. I had seen him initially on 12/26/2018. At that point he began treatment with Zoladex 10.8 mg, and he continued the bicalutamide. As of 02/03/2019 the PSA level had decreased to 146.30 ng/mL. During subsequent follow-up and continue to decline gradually. As of June 2019 it was down to 1.13 ng/mL. As of his follow-up visit on 10/07/2019 his PSA had stabilized at 1.33 ng/mL. He was reporting increased joint pain and stiffness. He otherwise appeared stable clinically. He continued treatment with Zoladex and bicalutamide, and I did have him start a low dosage of prednisone. However, by December 2019 the PSA had increased to 13.57 ng/mL. He stopped the bicalutamide. As of 02/18/2020 the PSA had further increased to 22.550 ng/mL. At that point, he began anti-androgen therapy with enzalutamide 160 mg daily. His repeat PSA level on 04/07/2020 had declined significantly, to 0.844 ng/mL, and by 07/13/2020 had further decreased to 0.104 ng/mL. He then continued androgen deprivation therapy with Zoladex 10.8 mg every 3 months together with enzalutamide 160 mg daily. His other medical illnesses include hypertension, hyperlipidemia, and coronary artery disease. He has a history of paroxysmal atrial fibrillation. He underwent coronary angioplasty/stent placement in 1998. He has a history of smoking 1 pack of cigarettes daily for 20 years, but he had quit smoking sometime in his 40s. INTERIM HISTORY: He is seen for a follow-up visit. He has not been feeling good generally. He has been feeling kind of weak in his legs tend to hurt and give out with walking. His activity is further limited due to his having to care for his who has worsening dementia. His ECOG score is 2. He has good appetite. He has not had fever. He is having pretty severe hot flashes, enough that it causes him to have muscle jerking. His allergy related sinus symptoms have not been too bad this year and he has very little cough. He is short of breath with activity. He does not complain of chest pain. He has no GI complaints. He does report having frequent urination. He does have some joint pain, but it is pretty well managed with prednisone at 10 mg daily. He has had just a few headaches. He does not complain of dizziness. He has some numbness/tingling in his hands. He is having some anxiety/depression. In the past he has been on treatment with Valium. Medications: Albuterol Sulfate 1 (108 (90 base) mcg/act) Aerosol Powder, Breath Activated Inhalation PRN, Aspirin 1 Tablet (of 81 mg) Oral daily, Atorvastatin Calcium 1 Tablet (of 40 mg) Oral daily, Bicalutamide 1 Tablet (of 50 mg) Oral daily, Lisinopril 1 Tablet (of 10 mg) Oral daily, Metoprolol Tartrate 1 Tablet (of 50 mg) Oral b.i.d., Multivitamin Adults 1 Tablet Oral daily, Warfarin Sodium (5 mg) Tablet Oral Take as Directed Allergies: HYDROcodone-Acetaminophen Vital Signs: Performed on Jan 14, 2021 10:11 Height - 69.00 in Weight - 210.4 lbs (HIGH) BSA - 2.11 sq.m BMI - 31.07 (HIGH) Temperature - 96.4 F (LOW) Pulse - 68 /min Respiration - 18 /min BP - 116/63 mm(hg) O2 Sat - 96 % Pain - 6 Fatigue - 7 Performed on Jan 14, 2021 08:35 Height - 69.00 in Weight - 210 lbs (LOW) BSA - 2.11 sq.m BMI - 31.01 (HIGH) Physical Examination: Constitutional - He appears somewhat weak generally, Eyes - Sclerae nonicteric. Conjunctivae clear, ENMT - No lesions noted in the oral cavity, Hematologic/Lymphatic - No cervical, clavicular, or axillary adenopathy, Respiratory - Lungs are clear with good air movement bilaterally, Cardiovascular - Heart rhythm is regular. There is no murmur, gallop, or rub noted, Abdomen - Mildly distended but soft. Liver and spleen are not enlarged. There is no abdominal mass or ascites noted and there is no inguinal adenopathy, Extremities - No edema. There are few scattered purpuric lesions, Neurologic - No focal neurologic deficits noted. Lab/Imaging: Test performed on Jan 14, 2021 08:35 Sodium 143 mmol/L Testosterone, Total < 2.5 ng/dL Potassium 3.8 mmol/L Chloride 107 mmol/L CO2 26 mmol/L Anion Gap 13.8 BUN 20 mg/dL Creatinine 0.8 mg/dL Cr Clearance (Est) 96.10 mL/min Glucose 112 mg/dL Osmolality - Calculated 299 mOsm/kg Calcium 8.7 mg/dL Protein, Total 6.2 g/dL Albumin 4.1 g/dL Globulin 2.1 g/dL Bilirubin, Total 0.6 mg/dL ALT (SGPT) 17 U/L AST (SGOT) 12 U/L Alkaline Phosphatase 86 IU/L WBC 7.3 10 3/uL RBC 4.17 10 6/uL HGB 13.8 g/dL HCT 41.9 % MCV 100.5 fL MCH 33.1 pg MCHC 32.9 g/dL RDW 12.6 % Platelet Count 228 10 3/cmm MPV 11.1 fL Neutrophils 4.60 10 3/uL Lymphocytes 1.8 10 3/uL Monocytes 0.7 10 3/uL Eosinophils 0.1 10 3/uL Basophils 0.0 10 3/uL Neutrophil % 63.2 % Lymphocyte % 25.3 % Monocyte % 9.6 % Eosinophil % 1.1 % Basophils % 0.5 % NRBC % 0 % PSA 0.056 ng/mL Problem List: 1. Isaac score 7 adenocarcinoma of the prostate, stage IV, with bone scan and CT evidence of extensive osteoblastic metastatic disease. CT also showed small noncalcified pulmonary nodules bilaterally, which was a nonspecific finding but also suspicious. He is on androgen deprivation therapy. 2. Hypertension. 3. Hyperlipidemia. 4. Coronary artery disease with previous angioplasty/stent placement. 5. He has a history of paroxysmal atrial fibrillation. He is on chronic anticoagulation with warfarin. 6. He has a history of mild asthma. Problems Addressed with this Encounter and Plan: 1. Patient with Isaac score 7 adenocarcinoma of the prostate, stage IV, with bone scan and CT evidence of extensive osteoblastic metastatic disease. CT also showed small noncalcified pulmonary nodules bilaterally, which was a nonspecific finding but also suspicious. He began treatment with bicalutamide 50 mg daily following needle biopsy of the prostate on 12/13/2018. He then began androgen deprivation therapy with Zoladex on 12/26/2018, and he continued the bicalutamide. He initially had a very good response to the androgen deprivation therapy. As of his follow-up visit in September 2019 his PSA had stabilized at 1.33 ng/mL compared to a pretreatment level greater than 10,000. However, as of December 2019 it had increased to 13.57 ng/mL, and he was showing some decline in his clinical status. As of 02/18/2020 there was further increase in the PSA to 22.550 ng/mL despite having stopped the bicalutamide. At that point he began further anti-androgen therapy with enzalutamide 160 mg daily. He has had a very good response by PSA level. He also has had symptomatic improvement, though he continues to have some weakness/fatigue and he has been having severe hot flashes. He also has required low-dose prednisone for management of associated joint pain. It is uncertain to what extent his weakness may be due to to the enzalutamide, to the prednisone, or to other factors. At this point he will continue his androgen deprivation therapy with Zoladex 10.8 mg by subcutaneous injection. I will have him try reducing the enzalutamide to 120 mg daily. I also will have him try decreasing prednisone to 5 mg daily. In addition, he will start oxybutynin 5 mg 3 times daily for his bladder symptoms and to also see if that may help with his hot flashes. 2. He is having anxiety/depression, and I will now have him start venlafaxine ER 37.5 mg daily. Signed By: David Zavaleta M.D. <<Signature on File>>
== END 2021-01-14 08:18 | disposition home or self-care (01) ==
LOC: ONCMED 08:21
PROVIDERS: PCP Family Medicine; Visit Provider Internal Medicine Medical Oncology
DX: C61 Malignant neoplasm of prostate (principal); Z79.899 Other long term (current) drug therapy; Z79.818 Long term (current) use of other agents affecting estrogen receptors and estrogen levels; I10 Essential (primary) hypertension; E78.5 Hyperlipidemia, unspecified; I25.10 Atherosclerotic heart disease of native coronary artery without angina pectoris; Z95.5 Presence of coronary angioplasty implant and graft; Z79.01 Long term (current) use of anticoagulants
CPT/HCPCS: 80053; 84153; 84403; 85025; 96372; 96402; 99214; J9202

== ENCOUNTER 2021-02-16 12:43 | Outpatient (CLI) | payer MEDICARE, SELFPAY ==
--- NOTE | 2021-02-17 07:00 | ONC FU_ITS ---
Dr. Zavaleta Patient Follow-Up Note Patient: David Sahu Unit #: [id number]: 1940 Dicatated By: David Zavaleta M.D.Date of Visit:Feb 16, 2021 Onc Med Follow-up/Prog Note Chief Complaint: Prostate cancer. 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 Several ago he had become stove up with some generalized joint pain and stiffness. He had seen Dr. Calderon at that time, and he had dramatic symptomatic improvement with a relatively short course of steroid therapy on prednisone. He had not become symptomatic again until September or October of this year. He then had a follow-up visit with Dr. Calderon in November 2018, and his PSA level was found to be greater than 10,000 ng/mL. He was seen by Dr. Stock on 12/03/2018. He was noted to have a rock hard prostate on exam. Repeat PSA level was reported at greater than 5000 ng/mL. His further evaluation with bone scan on 12/11/2018 showed extensive bony metastatic disease involving axial and proximal appendicular skeletal structures. CT of the abdomen/pelvis showed multiple noncalcified pulmonary nodules at the lung bases, the largest measuring 8.4 mm in the left lower lobe. The liver appeared normal. There was no renal mass or obstruction. The prostate was enlarged measuring 6.7 x 5.6 x 5.2 cm. An enlarged right iliac lymph node measured 1.9 x 1.2 cm. 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 He had a follow-up visit with Dr. Stock on 12/13/2018. At that time he underwent needle biopsy of the prostate, and he then started bicalutamide 50 mg daily. Pathology showed prostatic adenocarcinoma, Isaac score 4+3 = 7. I had seen him initially on 12/26/2018. At that point he began treatment with Zoladex 10.8 mg, and he continued the bicalutamide. As of 02/03/2019 the PSA level had decreased to 146.30 ng/mL. During subsequent follow-up and continue to decline gradually. As of June 2019 it was down to 1.13 ng/mL. As of his follow-up visit on 10/07/2019 his PSA had stabilized at 1.33 ng/mL. He was reporting increased joint pain and stiffness. He otherwise appeared stable clinically. He continued treatment with Zoladex and bicalutamide, and I did have him start a low dosage of prednisone. However, by December 2019 the PSA had increased to 13.57 ng/mL. He stopped the bicalutamide. As of 02/18/2020 the PSA had further increased to 22.550 ng/mL. At that point, he began anti-androgen therapy with enzalutamide 160 mg daily. His repeat PSA level on 04/07/2020 had declined significantly, to 0.844 ng/mL, and by 07/13/2020 had further decreased to 0.104 ng/mL. He then continued androgen deprivation therapy with Zoladex 10.8 mg every 3 months together with enzalutamide 160 mg daily. His other medical illnesses include hypertension, hyperlipidemia, and coronary artery disease. He has a history of paroxysmal atrial fibrillation. He underwent coronary angioplasty/stent placement in 1998. He has a history of smoking 1 pack of cigarettes daily for 20 years, but he had quit smoking sometime in his 40s. INTERIM HISTORY: I had seen him for a scheduled visit on 01/14/2021. His PSA remained adequately suppressed at 0.056 ng/mL, but at that point he was significantly more fatigued, and he was having significant hot flashes. He continued androgen deprivation therapy with Zoladex, but I did have him reduce the dosage of enzalutamide to 120 mg daily. I also had him try reducing the prednisone to 5 mg daily and I had them start oxybutynin 5 mg 3 times daily. He is seen now for a follow-up visit. He did feels significantly better with the changes in his medications. He still has some fatigue, but his energy is better and he is doing light work. ECOG score is 1. He has good appetite. He has not had fever. He still has hot flashes, which he says start like a chill in his arms, and he has some associated jerking. He can control the jerking if he concentrates on it. He does complain of dry mouth now. He says his breathing is not bad. Is not have cough and he does not complain of chest pain. He has acid reflux, but it is adequately managed with Pepcid. He has some constipation. He has noted improvement in his bladder function with the oxybutynin. His joint pain also is somewhat better. He has just occasional headache. He has some numbness in both hands, more so on the right. Medications: Albuterol Sulfate 1 (108 (90 base) mcg/act) Aerosol Powder, Breath Activated Inhalation PRN, Aspirin 1 Tablet (of 81 mg) Oral daily, Atorvastatin Calcium 1 Tablet (of 40 mg) Oral daily, Bicalutamide 1 Tablet (of 50 mg) Oral daily, Lisinopril 1 Tablet (of 10 mg) Oral daily, Metoprolol Tartrate 1 Tablet (of 50 mg) Oral b.i.d., Multivitamin Adults 1 Tablet Oral daily, Warfarin Sodium (5 mg) Tablet Oral Take as Directed Allergies: HYDROcodone-Acetaminophen Vital Signs: Performed on Feb 16, 2021 13:39 Height - 69.00 in Weight - 205.8 lbs (LOW) BSA - 2.09 sq.m BMI - 30.39 (HIGH) Temperature - 97.4 F (LOW) Pulse - 71 /min Respiration - 18 /min BP - 146/76 mm(hg) (HIGH) O2 Sat - 99 % Pain - 3 Fatigue - 8 Physical Examination: Constitutional - He looks pretty good generally, Eyes - Sclerae nonicteric. Conjunctivae clear, ENMT - No lesions noted in the oral cavity, Hematologic/Lymphatic - No cervical, clavicular, or axillary adenopathy, Respiratory - Lungs are clear with good air movement bilaterally, Cardiovascular - Heart rhythm is regular. There is no murmur, gallop, or rub noted, Abdomen - Mildly distended but soft. Liver and spleen are not enlarged. There is no abdominal mass or ascites noted and there is no inguinal adenopathy, Extremities - Slight edema, Neurologic - No focal neurologic deficits noted. Lab/Imaging: Test performed on Jan 14, 2021 08:35 Sodium 143 mmol/L Testosterone, Total < 2.5 ng/dL Potassium 3.8 mmol/L Chloride 107 mmol/L CO2 26 mmol/L Anion Gap 13.8 BUN 20 mg/dL Creatinine 0.8 mg/dL Cr Clearance (Est) 96.10 mL/min Glucose 112 mg/dL Osmolality - Calculated 299 mOsm/kg Calcium 8.7 mg/dL Protein, Total 6.2 g/dL Albumin 4.1 g/dL Globulin 2.1 g/dL Bilirubin, Total 0.6 mg/dL ALT (SGPT) 17 U/L AST (SGOT) 12 U/L Alkaline Phosphatase 86 IU/L WBC 7.3 10 3/uL RBC 4.17 10 6/uL HGB 13.8 g/dL HCT 41.9 % MCV 100.5 fL MCH 33.1 pg MCHC 32.9 g/dL RDW 12.6 % Platelet Count 228 10 3/cmm MPV 11.1 fL Neutrophils 4.60 10 3/uL Lymphocytes 1.8 10 3/uL Monocytes 0.7 10 3/uL Eosinophils 0.1 10 3/uL Basophils 0.0 10 3/uL Neutrophil % 63.2 % Lymphocyte % 25.3 % Monocyte % 9.6 % Eosinophil % 1.1 % Basophils % 0.5 % NRBC % 0 % PSA 0.056 ng/mL Problem List: 1. Isaac score 7 adenocarcinoma of the prostate, stage IV, with bone scan and CT evidence of extensive osteoblastic metastatic disease. CT also showed small noncalcified pulmonary nodules bilaterally, which was a nonspecific finding but also suspicious. He is on androgen deprivation therapy. 2. Hypertension. 3. Hyperlipidemia. 4. Coronary artery disease with previous angioplasty/stent placement. 5. He has a history of paroxysmal atrial fibrillation. He is on chronic anticoagulation with warfarin. 6. He has a history of mild asthma. Problems Addressed with this Encounter and Plan: 1. Patient with [place] score 7 adenocarcinoma of the prostate, stage IV, with bone scan and CT evidence of extensive osteoblastic metastatic disease. CT also showed small noncalcified pulmonary nodules bilaterally, which was a nonspecific finding but also suspicious. He began treatment with bicalutamide 50 mg daily following needle biopsy of the prostate on 12/13/2018. He then began androgen deprivation therapy with Zoladex on 12/26/2018, and he continued the bicalutamide. He initially had a very good response to the androgen deprivation therapy. As of his follow-up visit in September 2019 his PSA had stabilized at 1.33 ng/mL compared to a pretreatment level greater than 10,000. However, as of December 2019 it had increased to 13.57 ng/mL, and he was showing some decline in his clinical status. As of 02/18/2020 there was further increase in the PSA to 22.550 ng/mL despite having stopped the bicalutamide. At that point he began further anti-androgen therapy with enzalutamide 160 mg daily. He has had a very good response by PSA level. He also has had symptomatic improvement, though he continued to have some weakness/fatigue and he reported having severe hot flashes. He also had required low-dose prednisone for management of associated joint pain. As of this follow-up visit on 01/14/2021 he continued his androgen deprivation therapy with Zoladex. I did have him try reducing his enzalutamide dosage to 120 mg daily and the prednisone dosage to 5 mg daily. Since then he has felt significantly better, though he continues to have hot flashes. For now he will continue the enzalutamide and the prednisone at the same dosages. I am going to have him try adding gabapentin 100 mg 3 times daily. I also will have him try cutting back on the oxybutynin. I will see him again in 2 months, or sooner as needed. 2. He will continue venlafaxine ER 37.5 mg daily for anxiety/depression. Signed By: David Zavaleta M.D. <<Signature on File>>
== END 2021-02-16 12:44 | disposition home or self-care (01) ==
LOC: ONCMED 12:49
PROVIDERS: PCP Family Medicine; Visit Provider Internal Medicine Medical Oncology
DX: C61 Malignant neoplasm of prostate (principal); C79.51 Secondary malignant neoplasm of bone; C78.01 Secondary malignant neoplasm of right lung; C78.02 Secondary malignant neoplasm of left lung; I10 Essential (primary) hypertension; E78.5 Hyperlipidemia, unspecified; I25.10 Atherosclerotic heart disease of native coronary artery without angina pectoris; Z95.5 Presence of coronary angioplasty implant and graft; I48.0 Paroxysmal atrial fibrillation; Z79.01 Long term (current) use of anticoagulants; J45.20 Mild intermittent asthma, uncomplicated; Z79.818 Long term (current) use of other agents affecting estrogen receptors and estrogen levels; Z79.899 Other long term (current) drug therapy
CPT/HCPCS: 99214

== ENCOUNTER 2021-04-19 11:18 | Outpatient (CLI) | payer MEDICARE, SELFPAY ==
[2021-04-19 12:07] LABS: Basophils % 0.2 %; Eosinophils # 0.1 10^3/uL (0.0-0.8); Eosinophils % 0.9 %; Hematocrit 40.2 % (42.0-52.0); Hemoglobin 13.7 g/dL (11.7-16.6); Mean Corpuscular HGB Conc 34.1 g/dL (30.0-36.0); Mean Corpuscular Volume 96.9 fl (80-94); Mean Platelet Volume 11.2 fL (7.4-10.4); Monocytes # 0.8 10^3/uL (0.2-0.9); Monocytes % 7.7 %; Neutrophils # 8.03 10^3/uL (1.8-7.7); Neutrophils % 80.8 %; Nucleated Red Blood Cells % 0 %; Platelet Count 232 10^3/cmm (130-400); Red Blood Count 4.15 10^6/uL (4.1-5.3); Red Cell Distribution Width 12.3 % (12.1-15.1); White Blood Count 9.9 10^3/uL (4.0-10.0)
[2021-04-19 12:47] LABS: Prostate Specific Antigen 0.038 ng/mL (0-4)
[2021-04-19 12:58] LABS: Alanine Aminotransferase 18 U/L (0-41); Albumin Level 3.8 g/dL (3.5-5.2); Alkaline Phosphatase 111 IU/L (40-130); Aspartate Amino Transferase 15 U/L (0-40); Blood Urea Nitrogen 16 mg/dL (8-23); Calcium 8.5 mg/dL (8.5-10.5); Carbon Dioxide 24 mmol/L (22-29); Globulin 2.3 g/dL (1.3-4.6); Glucose 110 mg/dL (65-115); Total Bilirubin 0.5 mg/dL (0.15-1.2); Total Protein 6.1 g/dL (6.6-8.7)
[2021-04-19 13:05] LABS: Potassium 4.8 mmol/L (3.5-5.1)
[2021-04-19] MEDS: lidocaine 1% INJ 20 mL INJECTION (13:35)
[2021-04-19] MEDS: goserelin acetate 10.8 mg Implant SUBCUT (13:50)
[2021-04-19 14:03] LABS: INR 2.28 (0.8-1.2)
[2021-04-19 14:19] LABS: Anion Gap 15.8 (5-19); Testosterone Total 2.5 ng/dL (193-740)
[2021-04-19 14:25] LABS: Osmolality Calculated 288 mOsm/kg (285-295)
[2021-04-19 14:26] LABS: Chloride 103 mmol/L (98-107); Sodium 138 mmol/L (136-145)
--- NOTE | 2021-04-19 16:52 | ONC FU_ITS ---
Dr. Zavaleta Patient Follow-Up Note Patient: David Sahu Unit #: [id number]: 1940 Dicatated By: David Zavaleta M.D.Date of Visit:Apr 19, 2021 Onc Med Follow-up/Prog Note Chief Complaint: Prostate cancer. 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 Several ago he had become stove up with some generalized joint pain and stiffness. He had seen Dr. Calderon at that time, and he had dramatic symptomatic improvement with a relatively short course of steroid therapy on prednisone. He had not become symptomatic again until September or October of this year. He then had a follow-up visit with Dr. Calderon in November 2018, and his PSA level was found to be greater than 10,000 ng/mL. He was seen by Dr. Stock on 12/03/2018. He was noted to have a rock hard prostate on exam. Repeat PSA level was reported at greater than 5000 ng/mL. His further evaluation with bone scan on 12/11/2018 showed extensive bony metastatic disease involving axial and proximal appendicular skeletal structures. CT of the abdomen/pelvis showed multiple noncalcified pulmonary nodules at the lung bases, the largest measuring 8.4 mm in the left lower lobe. The liver appeared normal. There was no renal mass or obstruction. The prostate was enlarged measuring 6.7 x 5.6 x 5.2 cm. An enlarged right iliac lymph node measured 1.9 x 1.2 cm. 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 He had a follow-up visit with Dr. Stock on 12/13/2018. At that time he underwent needle biopsy of the prostate, and he then started bicalutamide 50 mg daily. Pathology showed prostatic adenocarcinoma, Isaac score 4+3 = 7. I had seen him initially on 12/26/2018. At that point he began treatment with Zoladex 10.8 mg, and he continued the bicalutamide. As of 02/03/2019 the PSA level had decreased to 146.30 ng/mL. During subsequent follow-up and continue to decline gradually. As of June 2019 it was down to 1.13 ng/mL. As of his follow-up visit on 10/07/2019 his PSA had stabilized at 1.33 ng/mL. He was reporting increased joint pain and stiffness. He otherwise appeared stable clinically. He continued treatment with Zoladex and bicalutamide, and I did have him start a low dosage of prednisone. However, by December 2019 the PSA had increased to 13.57 ng/mL. He stopped the bicalutamide. As of 02/18/2020 the PSA had further increased to 22.550 ng/mL. At that point, he began anti-androgen therapy with enzalutamide 160 mg daily. His repeat PSA level on 04/07/2020 had declined significantly, to 0.844 ng/mL, and by 07/13/2020 had further decreased to 0.104 ng/mL. He then continued androgen deprivation therapy with Zoladex 10.8 mg every 3 months together with enzalutamide 160 mg daily. His other medical illnesses include hypertension, hyperlipidemia, and coronary artery disease. He has a history of paroxysmal atrial fibrillation. He underwent coronary angioplasty/stent placement in 1998. He has a history of smoking 1 pack of cigarettes daily for 20 years, but he had quit smoking sometime in his 40s. INTERIM HISTORY: I had seen him for a scheduled visit on 01/14/2021. His PSA remained adequately suppressed at 0.056 ng/mL, but at that point he was significantly more fatigued, and he was having significant hot flashes. He continued androgen deprivation therapy with Zoladex, but I did have him reduce the dosage of enzalutamide to 120 mg daily. I also had him try reducing the prednisone to 5 mg daily and I had them start oxybutynin 5 mg 3 times daily. At his follow-up visit in February he was feeling somewhat better. His PSA level remained adequately suppressed. He continued treatment with Zoladex/enzalutamide at the same dosages. He is seen for a follow-up visit. He has not been feeling is good generally. His energy has not been the best, but he is still doing light work. ECOG score is 1. His appetite has been okay, but he has been losing weight. By our scale he is down close to 10 pounds. He has not had fever. He has just occasional hot flashes, generally not as bad now. Recently has had some cough and sore throat. He complains that he can get choked awfully easy. He does not complain of shortness of breath or chest pain. He has no GI complaints other than occasional constipation. Bladder function has improved with the oxybutynin. He has some joint pain, but generally that has been better. He continues the prednisone at 5 mg daily. Lately he has had some headaches. He does not complain of dizziness. He has no numbness/paresthesia or other focal neurologic symptoms. Medications: Albuterol Sulfate 1 (108 (90 base) mcg/act) Aerosol Powder, Breath Activated Inhalation PRN, Aspirin 1 Tablet (of 81 mg) Oral daily, Atorvastatin Calcium 1 Tablet (of 40 mg) Oral daily, Bicalutamide 1 Tablet (of 50 mg) Oral daily, Lisinopril 1 Tablet (of 10 mg) Oral daily, Metoprolol Tartrate 1 Tablet (of 50 mg) Oral b.i.d., Multivitamin Adults 1 Tablet Oral daily, Warfarin Sodium (5 mg) Tablet Oral Take as Directed Allergies: HYDROcodone-Acetaminophen Vital Signs: Performed on Apr 19, 2021 13:42 Height - 69.00 in Weight - 196 lbs (LOW) BSA - 2.05 sq.m BMI - 28.94 Temperature - 97.8 F (LOW) Pulse - 69 /min Respiration - 18 /min BP - 121/71 mm(hg) O2 Sat - 94 % (LOW) Pain - 0 Fatigue - 8 Physical Examination: Constitutional - He looks pretty good generally, Eyes - Sclerae nonicteric. Conjunctivae clear, ENMT - No lesions noted in the oral cavity, Hematologic/Lymphatic - No cervical, clavicular, or axillary adenopathy, Respiratory - Lungs are clear with good air movement bilaterally, Cardiovascular - Heart rhythm is regular. There is no murmur, gallop, or rub noted, Abdomen - Mildly distended but soft. Liver and spleen are not enlarged. There is no abdominal mass or ascites noted and there is no inguinal adenopathy, Extremities - No edema. There are purpuric lesions on both arms, Neurologic - No focal neurologic deficits noted. Lab/Imaging: Test performed on Apr 19, 2021 13:25 PT 25.60 SECONDS INR 2.28 Test performed on Apr 19, 2021 11:48 Sodium 138 mmol/L Testosterone, Total 2.5 ng/dL Potassium 4.8 mmol/L Chloride 103 mmol/L CO2 24 mmol/L Anion Gap 15.8 BUN 16 mg/dL Creatinine 0.8 mg/dL Cr Clearance (Est) 89.52 mL/min Glucose 110 mg/dL Osmolality - Calculated 288 mOsm/kg Calcium 8.5 mg/dL Protein, Total 6.1 g/dL Albumin 3.8 g/dL Globulin 2.3 g/dL Bilirubin, Total 0.5 mg/dL ALT (SGPT) 18 U/L AST (SGOT) 15 U/L Alkaline Phosphatase 111 IU/L WBC 9.9 10 3/uL RBC 4.15 10 6/uL HGB 13.7 g/dL HCT 40.2 % MCV 96.9 fl MCH 33.0 pg MCHC 34.1 g/dL RDW 12.3 % Platelet Count 232 10 3/cmm MPV 11.2 fL Neutrophils 8.03 10 3/uL Lymphocytes 1.0 10 3/uL Monocytes 0.8 10 3/uL Eosinophils 0.1 10 3/uL Basophils 0.0 10 3/uL Neutrophil % 80.8 % Lymphocyte % 10.0 % Monocyte % 7.7 % Eosinophil % 0.9 % Basophils % 0.2 % NRBC % 0 % PSA 0.038 ng/mL Problem List: 1. Isaac score 7 adenocarcinoma of the prostate, stage IV, with bone scan and CT evidence of extensive osteoblastic metastatic disease. CT also showed small noncalcified pulmonary nodules bilaterally, which was a nonspecific finding but also suspicious. He is on androgen deprivation therapy. 2. Hypertension. 3. Hyperlipidemia. 4. Coronary artery disease with previous angioplasty/stent placement. 5. He has a history of paroxysmal atrial fibrillation. He is on chronic anticoagulation with warfarin. 6. He has a history of mild asthma. Problems Addressed with this Encounter and Plan: Patient with [place] score 7 adenocarcinoma of the prostate, stage IV, with bone scan and CT evidence of extensive osteoblastic metastatic disease. CT also showed small noncalcified pulmonary nodules bilaterally, which was a nonspecific finding but also suspicious. He began treatment with bicalutamide 50 mg daily following needle biopsy of the prostate on 12/13/2018. He then began androgen deprivation therapy with Zoladex on 12/26/2018, and he continued the bicalutamide. He initially had a very good response to the androgen deprivation therapy. As of his follow-up visit in September 2019 his PSA had stabilized at 1.33 ng/mL compared to a pretreatment level greater than 10,000. However, as of December 2019 it had increased to 13.57 ng/mL, and he was showing some decline in his clinical status. As of 02/18/2020 there was further increase in the PSA to 22.550 ng/mL despite having stopped the bicalutamide. At that point he began further anti-androgen therapy with enzalutamide 160 mg daily. He has had a very good response by PSA level. He also has had symptomatic improvement, though he continued to have some weakness/fatigue and he reported having severe hot flashes. He also had required low-dose prednisone for management of associated joint pain. As of this follow-up visit on 01/14/2021 he continued his androgen deprivation therapy with Zoladex. I did have him try reducing his enzalutamide dosage to 120 mg daily and the prednisone dosage to 5 mg daily. As of his follow-up visit in February 2021 he was feeling somewhat better, and the PSA level remained adequately suppressed. He continued his same treatment. Since then there has been some decline in his performance status, and he has had some weight loss. However, he appears to be tolerating his treatment well and thus far there has been no increase in his PSA level. As such, he will be given Zoladex 10.8 mg and he will continue enzalutamide 120 mg daily. He also continues prednisone at 5 mg daily. I will see him again in 3 months, or sooner as needed. Signed By: David Zavaleta M.D. <<Signature on File>>
== END 2021-04-19 11:19 | disposition home or self-care (01) ==
LOC: ONCMED 11:28
PROVIDERS: PCP Family Medicine; Visit Provider Internal Medicine Medical Oncology
DX: C61 Malignant neoplasm of prostate (principal); C79.51 Secondary malignant neoplasm of bone; I25.10 Atherosclerotic heart disease of native coronary artery without angina pectoris; Z95.5 Presence of coronary angioplasty implant and graft; Z79.818 Long term (current) use of other agents affecting estrogen receptors and estrogen levels; Z79.82 Long term (current) use of aspirin; Z79.899 Other long term (current) drug therapy
CPT/HCPCS: 36415; 80053; 84153; 84403; 85025; 85610; 96372; 96402; 99215; J9202

== ENCOUNTER 2021-05-20 11:05 | Outpatient (CLI) | payer MEDICARE, SELFPAY ==
[2021-05-20 12:14] LABS: INR 1.81 (0.8-1.2)
== END 2021-05-20 11:06 | disposition home or self-care (01) ==
LOC: ONCMED 11:07
PROVIDERS: PCP Family Medicine; Visit Provider Internal Medicine Medical Oncology
DX: Z79.01 Long term (current) use of anticoagulants (principal)
CPT/HCPCS: 36415; 85610

== ENCOUNTER 2021-06-24 10:48 | Outpatient (CLI) | payer MEDICARE, SELFPAY ==
[2021-06-24 11:55] LABS: INR 1.65 (0.8-1.2)
== END 2021-06-24 10:49 | disposition home or self-care (01) ==
LOC: ONCMED 10:50
PROVIDERS: PCP Family Medicine; Visit Provider Internal Medicine Medical Oncology
DX: C61 Malignant neoplasm of prostate (principal); I25.10 Atherosclerotic heart disease of native coronary artery without angina pectoris; Z95.5 Presence of coronary angioplasty implant and graft; E78.5 Hyperlipidemia, unspecified; Z79.899 Other long term (current) drug therapy
CPT/HCPCS: 36415; 85610

== ENCOUNTER 2021-07-21 12:27 | Outpatient (CLI) | payer MEDICARE, SELFPAY ==
[2021-07-21 13:18] LABS: Basophils % 0.3 %; Eosinophils # 0.2 10^3/uL (0.0-0.8); Eosinophils % 1.9 %; Hematocrit 43.3 % (42.0-52.0); Hemoglobin 14.6 g/dL (11.7-16.6); Lymphocytes # 1.5 10^3/uL (0.8-4.8); Lymphocytes % 14.6 %; Mean Corpuscular HGB Conc 33.7 g/dL (30.0-36.0); Mean Corpuscular Hemoglobin 32.7 pg (28.0-34.0); Mean Corpuscular Volume 96.9 fl (80-94); Mean Platelet Volume 10.6 fL (7.4-10.4); Monocytes # 0.7 10^3/uL (0.2-0.9); Monocytes % 6.4 %; Neutrophils # 7.73 10^3/uL (1.8-7.7); Neutrophils % 76.5 %; Nucleated Red Blood Cells % 0 %; Platelet Count 285 10^3/cmm (130-400); Red Blood Count 4.47 10^6/uL (4.1-5.3); Red Cell Distribution Width 12.5 % (12.1-15.1); White Blood Count 10.1 10^3/uL (4.0-10.0)
[2021-07-21 13:22] LABS: INR 1.51 (0.8-1.2)
[2021-07-21 13:50] LABS: Alanine Aminotransferase 11 U/L (0-41); Albumin Level 4.1 g/dL (3.5-5.2); Alkaline Phosphatase 111 IU/L (40-130); Anion Gap 17.4 (5-19); Aspartate Amino Transferase 9 U/L (0-40); Blood Urea Nitrogen 19 mg/dL (8-23); Calcium 8.6 mg/dL (8.5-10.5); Carbon Dioxide 21 mmol/L (22-29); Chloride 106 mmol/L (98-107); Globulin 2.3 g/dL (1.3-4.6); Glucose 105 mg/dL (65-115); Osmolality Calculated 293 mOsm/kg (285-295); Potassium 4.4 mmol/L (3.5-5.1); Prostate Specific Antigen 0.032 ng/mL (0-4); Sodium 140 mmol/L (136-145); Testosterone Total 2.5 ng/dL (193-740); Total Bilirubin 0.3 mg/dL (0.15-1.2); Total Protein 6.4 g/dL (6.6-8.7)
--- NOTE | 2021-07-21 14:37 | ONC FU_ITS ---
Dr. Zavaleta Patient Follow-Up Note Patient: David Sahu Unit #: [id number]: 1940 Dicatated By: David Zavaleta M.D.Date of Visit:Jul 21, 2021 Onc Med Follow-up/Prog Note Chief Complaint: Prostate cancer. 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 Several ago he had become stove up with some generalized joint pain and stiffness. He had seen Dr. Calderon at that time, and he had dramatic symptomatic improvement with a relatively short course of steroid therapy on prednisone. He had not become symptomatic again until September or October of this year. He then had a follow-up visit with Dr. Calderon in November 2018, and his PSA level was found to be greater than 10,000 ng/mL. He was seen by Dr. Stock on 12/03/2018. He was noted to have a rock hard prostate on exam. Repeat PSA level was reported at greater than 5000 ng/mL. His further evaluation with bone scan on 12/11/2018 showed extensive bony metastatic disease involving axial and proximal appendicular skeletal structures. CT of the abdomen/pelvis showed multiple noncalcified pulmonary nodules at the lung bases, the largest measuring 8.4 mm in the left lower lobe. The liver appeared normal. There was no renal mass or obstruction. The prostate was enlarged measuring 6.7 x 5.6 x 5.2 cm. An enlarged right iliac lymph node measured 1.9 x 1.2 cm. 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 He had a follow-up visit with Dr. Stock on 12/13/2018. At that time he underwent needle biopsy of the prostate, and he then started bicalutamide 50 mg daily. Pathology showed prostatic adenocarcinoma, Isaac score 4+3 = 7. I had seen him initially on 12/26/2018. At that point he began treatment with Zoladex 10.8 mg, and he continued the bicalutamide. As of 02/03/2019 the PSA level had decreased to 146.30 ng/mL. During subsequent follow-up and continue to decline gradually. As of June 2019 it was down to 1.13 ng/mL. As of his follow-up visit on 10/07/2019 his PSA had stabilized at 1.33 ng/mL. He was reporting increased joint pain and stiffness. He otherwise appeared stable clinically. He continued treatment with Zoladex and bicalutamide, and I did have him start a low dosage of prednisone. However, by December 2019 the PSA had increased to 13.57 ng/mL. He stopped the bicalutamide. As of 02/18/2020 the PSA had further increased to 22.550 ng/mL. At that point, he began anti-androgen therapy with enzalutamide 160 mg daily. His repeat PSA level on 04/07/2020 had declined significantly, to 0.844 ng/mL, and by 07/13/2020 had further decreased to 0.104 ng/mL. He then continued androgen deprivation therapy with Zoladex 10.8 mg every 3 months together with enzalutamide 160 mg daily. His other medical illnesses include hypertension, hyperlipidemia, and coronary artery disease. He has a history of paroxysmal atrial fibrillation. He underwent coronary angioplasty/stent placement in 1998. He has a history of smoking 1 pack of cigarettes daily for 20 years, but he had quit smoking sometime in his 40s. INTERIM HISTORY: I had seen him for a scheduled visit on 01/14/2021. His PSA remained adequately suppressed at 0.056 ng/mL, but at that point he was significantly more fatigued, and he was having significant hot flashes. He continued androgen deprivation therapy with Zoladex, but I did have him reduce the dosage of enzalutamide to 120 mg daily. I also had him try reducing the prednisone to 5 mg daily and I had him start oxybutynin 5 mg 3 times daily. At his follow-up visit in February he was feeling somewhat better. His PSA level remained adequately suppressed. He continued treatment with Zoladex/enzalutamide at the same dosages. He is seen for a follow-up visit. He has been feeling good generally. He has been under some added stress with his now having been placed in a assisted. He has not been eating as well, and he has lost some weight. He also has not been taking his medication as consistently. He is doing light work at home. ECOG score is 1. He does not have fever or night sweats. He still feels slightly warm at times. He otherwise is not having hot flashes. He has not had sore mouth but he sometimes does get phlegm in his throat, and he is prone to getting choked up. His breathing, though, is pretty good. He does not complain of chest pain. He sometimes has gas, which he manages with Pepcid. Bowel function has been okay. His bladder function has improved, though he sometimes has urgency with urination. His joint pain also has improved. He does not complain of headache or dizziness. He has very little numbness or tingling. Medications: Albuterol Sulfate 1 (108 (90 base) mcg/act) Aerosol Powder, Breath Activated Inhalation PRN, Aspirin 1 Tablet (of 81 mg) Oral daily, Atorvastatin Calcium 1 Tablet (of 40 mg) Oral daily, Bicalutamide 1 Tablet (of 50 mg) Oral daily, Lisinopril 1 Tablet (of 10 mg) Oral daily, Metoprolol Tartrate 1 Tablet (of 50 mg) Oral b.i.d., Multivitamin Adults 1 Tablet Oral daily, Warfarin Sodium (5 mg) Tablet Oral Take as Directed Allergies: HYDROcodone-Acetaminophen Vital Signs: Performed on Jul 21, 2021 14:05 Height - 69.00 in Weight - 193.2 lbs (LOW) BSA - 2.04 sq.m BMI - 28.53 Temperature - 96.7 F (LOW) Pulse - 69 /min Respiration - 16 /min BP - 121/77 mm(hg) O2 Sat - 97 % Pain - 0 Fatigue - 8 Physical Examination: Constitutional - He looks pretty good generally, Eyes - Sclerae nonicteric. Conjunctivae clear, ENMT - No lesions noted in the oral cavity, Hematologic/Lymphatic - No cervical, clavicular, or axillary adenopathy, Respiratory - Lungs are clear with good air movement bilaterally, Cardiovascular - Heart rhythm is regular. There is no murmur, gallop, or rub noted, Abdomen - Mildly distended but soft. Liver and spleen are not enlarged. There is no abdominal mass or ascites noted and there is no inguinal adenopathy, Extremities - No edema, Neurologic - No focal neurologic deficits noted. Lab/Imaging: Test performed on Jul 21, 2021 12:32 Sodium 140 mmol/L Testosterone, Total 2.5 ng/dL Potassium 4.4 mmol/L Chloride 106 mmol/L CO2 21 mmol/L Anion Gap 17.4 BUN 19 mg/dL Creatinine 0.8 mg/dL Cr Clearance (Est) 88.24 mL/min Glucose 105 mg/dL Osmolality - Calculated 293 mOsm/kg Calcium 8.6 mg/dL Protein, Total 6.4 g/dL Albumin 4.1 g/dL Globulin 2.3 g/dL Bilirubin, Total 0.3 mg/dL ALT (SGPT) 11 U/L AST (SGOT) 9 U/L Alkaline Phosphatase 111 IU/L PT 18.50 SECONDS WBC 10.1 10 3/uL INR 1.51 RBC 4.47 10 6/uL HGB 14.6 g/dL HCT 43.3 % MCV 96.9 fl MCH 32.7 pg MCHC 33.7 g/dL RDW 12.5 % Platelet Count 285 10 3/cmm MPV 10.6 fL Neutrophils 7.73 10 3/uL Lymphocytes 1.5 10 3/uL Monocytes 0.7 10 3/uL Eosinophils 0.2 10 3/uL Basophils 0.0 10 3/uL Neutrophil % 76.5 % Lymphocyte % 14.6 % Monocyte % 6.4 % Eosinophil % 1.9 % Basophils % 0.3 % NRBC % 0 % PSA 0.032 ng/mL Problem List: 1. Nevis score 7 adenocarcinoma of the prostate, stage IV, with bone scan and CT evidence of extensive osteoblastic metastatic disease. CT also showed small noncalcified pulmonary nodules bilaterally, which was a nonspecific finding but also suspicious. He is on androgen deprivation therapy. 2. Hypertension. 3. Hyperlipidemia. 4. Coronary artery disease with previous angioplasty/stent placement. 5. He has a history of paroxysmal atrial fibrillation. He is on chronic anticoagulation with warfarin. 6. He has a history of mild asthma. Problems Addressed with this Encounter and Plan: 1. Patient with Isaac score 7 adenocarcinoma of the prostate, stage IV, with bone scan and CT evidence of extensive osteoblastic metastatic disease. CT also showed small noncalcified pulmonary nodules bilaterally, which was a nonspecific finding but also suspicious. He began treatment with bicalutamide 50 mg daily following needle biopsy of the prostate on 12/13/2018. He then began androgen deprivation therapy with Zoladex on 12/26/2018, and he continued the bicalutamide. He initially had a very good response to the androgen deprivation therapy. As of his follow-up visit in September 2019 his PSA had stabilized at 1.33 ng/mL compared to a pretreatment level greater than 10,000. However, as of December 2019 it had increased to 13.57 ng/mL, and he was showing some decline in his clinical status. As of 02/18/2020 there was further increase in the PSA to 22.550 ng/mL despite having stopped the bicalutamide. At that point he began further anti-androgen therapy with enzalutamide 160 mg daily. He has had a very good response by PSA level. He also has had symptomatic improvement, though he continued to have some weakness/fatigue and he reported having severe hot flashes. He also had required low-dose prednisone for management of associated joint pain. As of this follow-up visit on 01/14/2021 he continued his androgen deprivation therapy with Zoladex. I did have him try reducing his enzalutamide dosage to 120 mg daily and the prednisone dosage to 5 mg daily. As of his follow-up visit in February 2021 he was feeling somewhat better, and the PSA level remained adequately suppressed. At this point he is feeling pretty good generally. He appears to be tolerating the treatment well and his PSA remains stable at 0.032 ng/mL. He will be given Zoladex 10.8 mg and he will continue enzalutamide 120 mg daily. He also will continue the oxybutynin, which appears to be helping both his bladder function and his hot flashes. In addition, he continues prednisone 5 mg daily for the joint pain. He will be scheduled for a follow-up visit in 3 months. 2. He has been on chronic anticoagulation with warfarin. His INR today is slightly subtherapeutic, but he has not been taking his medications consistently. As such, his warfarin dosage will remain the same at 7.5 mg on Mondays and and 5 mg all other days, but he will try and be more diligent about taking it. I will continue to monitor his pro time monthly. Signed By: David Zavaleta M.D. <<Signature on File>>
[2021-07-21] MEDS: lidocaine 1% INJ 20 mL INJECTION (14:40)
[2021-07-21] MEDS: goserelin acetate 10.8 mg Implant SUBCUT (14:50)
== END 2021-07-21 12:28 | disposition home or self-care (01) ==
LOC: ONCMED 12:31
PROVIDERS: PCP Family Medicine; Visit Provider Internal Medicine Medical Oncology
DX: C61 Malignant neoplasm of prostate (principal); I10 Essential (primary) hypertension; E78.5 Hyperlipidemia, unspecified; I25.10 Atherosclerotic heart disease of native coronary artery without angina pectoris; I48.91 Unspecified atrial fibrillation; Z79.82 Long term (current) use of aspirin; Z79.01 Long term (current) use of anticoagulants; Z79.818 Long term (current) use of other agents affecting estrogen receptors and estrogen levels; Z87.891 Personal history of nicotine dependence; Z23 Encounter for immunization
CPT/HCPCS: 36415; 80053; 84153; 84403; 85025; 85610; 90471; 90686; 96402; 99215; J9202

== ENCOUNTER 2021-08-22 14:35 | Outpatient (CLI) | payer MEDICARE, SELFPAY ==
[2021-08-22 15:30] LABS: INR 1.89 (0.8-1.2)
== END 2021-08-22 14:36 | disposition home or self-care (01) ==
PROVIDERS: PCP Family Medicine; Visit Provider Internal Medicine Medical Oncology
DX: C61 Malignant neoplasm of prostate (principal); C79.51 Secondary malignant neoplasm of bone; I48.0 Paroxysmal atrial fibrillation; Z79.01 Long term (current) use of anticoagulants
CPT/HCPCS: 36415; 85610

== ENCOUNTER 2021-09-22 14:29 | Outpatient (CLI) | payer MEDICARE, SELFPAY ==
[2021-09-22 15:36] LABS: INR 2.32 (0.8-1.2)
== END 2021-09-22 14:30 | disposition home or self-care (01) ==
PROVIDERS: PCP Family Medicine; Visit Provider Internal Medicine Medical Oncology
DX: C61 Malignant neoplasm of prostate (principal); I48.91 Unspecified atrial fibrillation; I10 Essential (primary) hypertension; E78.5 Hyperlipidemia, unspecified; I25.10 Atherosclerotic heart disease of native coronary artery without angina pectoris
CPT/HCPCS: 36415; 85610

== ENCOUNTER 2021-10-25 09:05 | Outpatient (CLI) | payer MEDICARE, SELFPAY ==
[2021-10-25 10:14] LABS: Basophils % 0.3 %; Eosinophils # 0.1 10^3/uL (0.0-0.8); Eosinophils % 1.1 %; Hematocrit 42.3 % (42.0-52.0); Hemoglobin 13.9 g/dL (11.7-16.6); Lymphocytes # 1.3 10^3/uL (0.8-4.8); Lymphocytes % 13.7 %; Mean Corpuscular HGB Conc 32.9 g/dL (30.0-36.0); Mean Corpuscular Hemoglobin 32.3 pg (28.0-34.0); Mean Corpuscular Volume 98.4 fl (80-94); Mean Platelet Volume 10.7 fL (7.4-10.4); Monocytes # 0.6 10^3/uL (0.2-0.9); Monocytes % 6.1 %; Neutrophils # 7.23 10^3/uL (1.8-7.7); Neutrophils % 78.6 %; Nucleated Red Blood Cells % 0 %; Platelet Count 256 10^3/cmm (130-400); Red Cell Distribution Width 12.4 % (12.1-15.1); White Blood Count 9.2 10^3/uL (4.0-10.0)
[2021-10-25 10:33] LABS: INR 1.94 (0.8-1.2)
[2021-10-25 10:38] LABS: Prostate Specific Antigen 0.029 ng/mL (0-4); Testosterone Total 2.5 ng/dL (193-740)
[2021-10-25] MEDS: lidocaine 1% INJ 20 mL INJECTION (11:10)
[2021-10-25] MEDS: goserelin acetate 10.8 mg Implant SUBCUT (11:25)
--- NOTE | 2021-10-25 13:17 | ONC FU_ITS ---
Brittaney Gunter Progress Note Patient: David Sahu Unit #: [id number]: 1940 Dicatated By: Brittaney Gunter N.P.Date of Visit:Oct 25, 2021 Onc MED Follow-up/Prog Note Chief Complaint: Prostate cancer. 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 Several ago he had become stove up with some generalized joint pain and stiffness. He had seen Dr. Calderon at that time, and he had dramatic symptomatic improvement with a relatively short course of steroid therapy on prednisone. He had not become symptomatic again until September or October of this year. He then had a follow-up visit with Dr. Calderon in November 2018, and his PSA level was found to be greater than 10,000 ng/mL. He was seen by Dr. Stock on 12/03/2018. He was noted to have a rock hard prostate on exam. Repeat PSA level was reported at greater than 5000 ng/mL. His further evaluation with bone scan on 12/11/2018 showed extensive bony metastatic disease involving axial and proximal appendicular skeletal structures. CT of the abdomen/pelvis showed multiple noncalcified pulmonary nodules at the lung bases, the largest measuring 8.4 mm in the left lower lobe. The liver appeared normal. There was no renal mass or obstruction. The prostate was enlarged measuring 6.7 x 5.6 x 5.2 cm. An enlarged right iliac lymph node measured 1.9 x 1.2 cm. 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 He had a follow-up visit with Dr. Stock on 12/13/2018. At that time he underwent needle biopsy of the prostate, and he then started bicalutamide 50 mg daily. Pathology showed prostatic adenocarcinoma, Greene score 4+3 = 7. I had seen him initially on 12/26/2018. At that point he began treatment with Zoladex 10.8 mg, and he continued the bicalutamide. As of 02/03/2019 the PSA level had decreased to 146.30 ng/mL. During subsequent follow-up and continue to decline gradually. As of June 2019 it was down to 1.13 ng/mL. As of his follow-up visit on 10/07/2019 his PSA had stabilized at 1.33 ng/mL. He was reporting increased joint pain and stiffness. He otherwise appeared stable clinically. He continued treatment with Zoladex and bicalutamide, and I did have him start a low dosage of prednisone. However, by December 2019 the PSA had increased to 13.57 ng/mL. He stopped the bicalutamide. As of 02/18/2020 the PSA had further increased to 22.550 ng/mL. At that point, he began anti-androgen therapy with enzalutamide 160 mg daily. His repeat PSA level on 04/07/2020 had declined significantly, to 0.844 ng/mL, and by 07/13/2020 had further decreased to 0.104 ng/mL. He then continued androgen deprivation therapy with Zoladex 10.8 mg every 3 months together with enzalutamide 160 mg daily. His other medical illnesses include hypertension, hyperlipidemia, and coronary artery disease. He has a history of paroxysmal atrial fibrillation. He underwent coronary angioplasty/stent placement in 1998. He has a history of smoking 1 pack of cigarettes daily for 20 years, but he had quit smoking sometime in his 40s. INTERIM HISTORY: I had seen him for a scheduled visit on 01/14/2021. His PSA remained adequately suppressed at 0.056 ng/mL, but at that point he was significantly more fatigued, and he was having significant hot flashes. He continued androgen deprivation therapy with Zoladex, but I did have him reduce the dosage of enzalutamide to 120 mg daily. I also had him try reducing the prednisone to 5 mg daily and I had him start oxybutynin 5 mg 3 times daily. At his follow-up visit in February he was feeling somewhat better. His PSA level remained adequately suppressed. He continued treatment with Zoladex/enzalutamide at the same dosages. Patient presents today for follow-up and his next dose of Zoladex. He states he has been feeling well. He denies fever or chills. He has occasional night sweats but states they are very seldom. He denies sinus drainage or sore throat. No shortness of breath, cough, chest pain. He denies nausea or vomiting, diarrhea or constipation. No complaints of urinary symptoms. No joint or bone pain. No headaches or dizziness. His has been put in a penitentiary and he has been going through a big adjustment of having to cook and clean which she is not used to having to do. He states he is tolerating enzalutamide and Zoladex well. Review Of Symptoms: See above. Past Medical History: Asthma Atrial fibrillation Coronary artery disease Hyperlipidemia Hypertension Myocardial Infarction Osteoarthritis Past Surgical History: Covid vaccine #2 in 2020 Covid vaccine #1 in 2020 Coronary angioplasty/stent placement in 1998 Allergies: HYDROcodone-Acetaminophen Medications: Albuterol Sulfate 1 (108 (90 base) mcg/act) Aerosol Powder, Breath Activated Inhalation PRN Aspirin 1 Tablet (of 81 mg) Oral daily Atorvastatin Calcium 1 Tablet (of 40 mg) Oral daily Bicalutamide 1 Tablet (of 50 mg) Oral daily Lisinopril 1 Tablet (of 10 mg) Oral daily Metoprolol Tartrate 1 Tablet (of 50 mg) Oral b.i.d. Multivitamin Adults 1 Tablet Oral daily Warfarin Sodium (5 mg) Tablet Oral Take as Directed Family History: Mr. Sahu's mother at age 73: parkinson's disease. Mr. Sahu's father at age 74: heart disease. Mr. Sahu has 1 brother who is alive: heart disease. He has 2 sisters: 2 alive. Mr. Sahu's first sister's alzheimers. Another sister's alzheimers. Father of heart attack age 74. Mother age 75 with Parkinson's disease. He has one brother who has coronary artery disease. Two sisters both have dementia, and one also has coronary artery disease and the other also was treated for uterine cancer. A maternal uncle of prostate cancer. Social History: Mr. Sahu is and he is retired. Mr. Sahu quit smoking 37 years ago but had smoked 1.0 pack/day for 34 years. He has no history of drinking. Physical Examination: Performed on Oct 25, 2021 11:12: Height - 69.00 in, Weight - 188.8 lbs (LOW), BSA - 2.02 sq.m, BMI - 27.88, Temperature - 97.1 F (LOW), Pulse - 62 /min, Respiration - 16 /min, BP - 114/75 mm(hg), O2 Sat - 95 % (LOW), Pain - 0, and Fatigue - 5. Performance Status: 1 - No physically strenuous activity, but ambulatory and able to carry out light or sedentary work (e.g. office work, light house work). (ECOG) Constitutional Alert, cooperative, oriented. Mood and affect appropriate. Appears close to chronological age. Well nourished. Well developed. Head Normocephalic; no scars. Respiratory Lungs are clear to auscultation without rhonchi or wheezing. Cardiovascular Regular rate and rhythm of heart without murmurs, gallops or rubs. Abdomen Non-tender, non-distended, no masses, ascites or hepatosplenomegaly. Good bowel sounds. No guarding or rebound tenderness. Extremities No visible deformities, no cyanosis, clubbing or edema. Pulses 3+ and equal bilaterally. Musculoskeletal No tenderness or swelling, normal range of motion without obvious weakness. Psychiatric Alert and oriented times three. Coherent speech. Verbalizes understanding of our discussions today. Laboratory: Test performed on Oct 25, 2021 09:55 Testosterone, Total 2.5 ng/dL PT 22.50 SECONDS WBC 9.2 10 3/uL INR 1.94 RBC 4.30 10 6/uL HGB 13.9 g/dL HCT 42.3 % MCV 98.4 fl MCH 32.3 pg MCHC 32.9 g/dL RDW 12.4 % Platelet Count 256 10 3/cmm MPV 10.7 fL Neutrophils 7.23 10 3/uL Lymphocytes 1.3 10 3/uL Monocytes 0.6 10 3/uL Eosinophils 0.1 10 3/uL Basophils 0.0 10 3/uL Neutrophil % 78.6 % Lymphocyte % 13.7 % Monocyte % 6.1 % Eosinophil % 1.1 % Basophils % 0.3 % NRBC % 0 % PSA 0.029 ng/mL Test performed on Aug 22, 2021 14:55 Coumadin, Current Dose Pt taking 7.5 mg M&TH, and 5 mg all other days Coumadin, New Dose Pt instructed to take 7.5 mg MWF and 5 mg all other days. Test performed on Jul 21, 2021 12:32 Sodium 140 mmol/L Potassium 4.4 mmol/L Chloride 106 mmol/L CO2 21 mmol/L Anion Gap 17.4 BUN 19 mg/dL Creatinine 0.8 mg/dL Cr Clearance (Est) 88.24 mL/min Glucose 105 mg/dL Osmolality - Calculated 293 mOsm/kg Calcium 8.6 mg/dL Protein, Total 6.4 g/dL Albumin 4.1 g/dL Globulin 2.3 g/dL Bilirubin, Total 0.3 mg/dL ALT (SGPT) 11 U/L AST (SGOT) 9 U/L Alkaline Phosphatase 111 IU/L Impression: 1. Greene score 7 adenocarcinoma of the prostate, stage IV, with bone scan and CT evidence of extensive osteoblastic metastatic disease. CT also showed small noncalcified pulmonary nodules bilaterally, which was a nonspecific finding but also suspicious. He is on androgen deprivation therapy. 2. Hypertension. 3. Hyperlipidemia. 4. Coronary artery disease with previous angioplasty/stent placement. 5. He has a history of paroxysmal atrial fibrillation. He is on chronic anticoagulation with warfarin. 6. He has a history of mild asthma. Plan: 1. Patient with Isaac score 7 adenocarcinoma of the prostate, stage IV, with bone scan and CT evidence of extensive osteoblastic metastatic disease. CT also showed small noncalcified pulmonary nodules bilaterally, which was a nonspecific finding but also suspicious. He began treatment with bicalutamide 50 mg daily following needle biopsy of the prostate on 12/13/2018. He then began androgen deprivation therapy with Zoladex on 12/26/2018, and he continued the bicalutamide. He initially had a very good response to the androgen deprivation therapy. As of his follow-up visit in September 2019 his PSA had stabilized at 1.33 ng/mL compared to a pretreatment level greater than 10,000. However, as of December 2019 it had increased to 13.57 ng/mL, and he was showing some decline in his clinical status. As of 02/18/2020 there was further increase in the PSA to 22.550 ng/mL despite having stopped the bicalutamide. At that point he began further anti-androgen therapy with enzalutamide 160 mg daily. He has had a very good response by PSA level. He also has had symptomatic improvement, though he continued to have some weakness/fatigue and he reported having severe hot flashes. He also had required low-dose prednisone for management of associated joint pain. As of this follow-up visit on 01/14/2021 he continued his androgen deprivation therapy with Zoladex. Dr. Zavaleta had him try reducing his enzalutamide dosage to 120 mg daily and the prednisone dosage to 5 mg daily. As of his follow-up visit in February 2021 he was feeling somewhat better, and the PSA level remained adequately suppressed. He reports today that he is feeling well. He is tolerating Zoladex every 3 months and enzalutamide 120 mg daily. He also continues prednisone 5 mg a day. He was given oxybutynin for urinary frequency he also continues that doing well with that. His PSA remains stable at 0.029. He will receive his Zoladex injection today and return to the clinic in 3 months with CBC, CMP, and PSA. 2. He has been on chronic anticoagulation with warfarin. His INR today is slightly subtherapeutic at 1.94 but he states he forgets his medications at times. As such, his warfarin dosage will remain the same at 7.5 mg on Mondays and and 5 mg all other days, but he will try and be more diligent about taking it. We will continue to monitor his PT/INR monthly Signed By: Brittaney Gunter N.P. <<Signature on File>>
== END 2021-10-25 09:06 | disposition home or self-care (01) ==
PROVIDERS: PCP Family Medicine; Visit Provider Nurse Practitioner Family
DX: C61 Malignant neoplasm of prostate (principal); I10 Essential (primary) hypertension; E78.5 Hyperlipidemia, unspecified; I25.10 Atherosclerotic heart disease of native coronary artery without angina pectoris; I48.91 Unspecified atrial fibrillation; I25.2 Old myocardial infarction; Z79.899 Other long term (current) drug therapy; Z87.891 Personal history of nicotine dependence
CPT/HCPCS: 36415; 84153; 84403; 85025; 85610; 96372; 96402; 99215; J9202

== ENCOUNTER 2021-11-28 14:10 | Outpatient (CLI) | payer MEDICARE, SELFPAY ==
[2021-11-28 14:50] LABS: Basophils % 0.2 %; Eosinophils # 0.1 10^3/uL (0.0-0.8); Hematocrit 42.5 % (42.0-52.0); Hemoglobin 14.1 g/dL (11.7-16.6); Lymphocytes # 1.6 10^3/uL (0.8-4.8); Lymphocytes % 15.9 %; Mean Corpuscular HGB Conc 33.2 g/dL (30.0-36.0); Mean Corpuscular Hemoglobin 32.6 pg (28.0-34.0); Mean Corpuscular Volume 98.4 fl (80-94); Mean Platelet Volume 10.7 fL (7.4-10.4); Monocytes # 0.8 10^3/uL (0.2-0.9); Monocytes % 8.6 %; Neutrophils # 7.23 10^3/uL (1.8-7.7); Nucleated Red Blood Cells % 0 %; Platelet Count 251 10^3/cmm (130-400); Red Blood Count 4.32 10^6/uL (4.1-5.3); Red Cell Distribution Width 12.5 % (12.1-15.1); White Blood Count 9.8 10^3/uL (4.0-10.0)
[2021-11-28 15:10] LABS: Alanine Aminotransferase 13 U/L (0-41); Albumin Level 4.1 g/dL (3.5-5.2); Alkaline Phosphatase 130 IU/L (40-130); Anion Gap 14.3 (5-19); Aspartate Amino Transferase 10 U/L (0-40); Blood Urea Nitrogen 12 mg/dL (8-23); Calcium 8.6 mg/dL (8.5-10.5); Carbon Dioxide 27 mmol/L (22-29); Chloride 104 mmol/L (98-107); Globulin 2.2 g/dL (1.3-4.6); Glucose 110 mg/dL (65-115); Osmolality Calculated 292 mOsm/kg (285-295); Potassium 4.3 mmol/L (3.5-5.1); Prostate Specific Antigen 0.026 ng/mL (0-4); Sodium 141 mmol/L (136-145); Total Bilirubin 0.3 mg/dL (0.15-1.2); Total Protein 6.3 g/dL (6.6-8.7)
[2021-11-28 15:20] LABS: INR 1.71 (0.8-1.2)
== END 2021-11-28 14:11 | disposition home or self-care (01) ==
LOC: ONCMED 14:13
PROVIDERS: PCP Family Medicine; Visit Provider Internal Medicine Medical Oncology
DX: C61 Malignant neoplasm of prostate (principal); Z79.01 Long term (current) use of anticoagulants
CPT/HCPCS: 36415; 80053; 84153; 85025; 85610

== ENCOUNTER 2021-12-26 13:43 | Oncology outpatient (recurring) (ONCR) | payer MEDICARE, SELFPAY ==
[2021-12-26 14:20] LABS: INR 2.85 (0.8-1.2)
== END 2022-01-10 23:59 | disposition home or self-care (01) ==
LOC: ONCMED 13:45
PROVIDERS: Nurse Practitioner Family; PCP Family Medicine; Visit Provider Internal Medicine Medical Oncology
DX: Z51.81 Encounter for therapeutic drug level monitoring (principal); Z79.01 Long term (current) use of anticoagulants
CPT/HCPCS: 85610

== ENCOUNTER 2022-01-23 12:57 | Oncology outpatient (recurring) (ONCR) | payer MEDICARE, SELFPAY ==
[2022-01-23 14:28] LABS: INR 0.96 (0.8-1.2)
[2022-01-23 15:00] VITALS: BMI 28.2
[2022-01-23 15:55] LABS: Basophils % 0.3 %; Eosinophils # 0.1 10^3/uL (0.0-0.8); Eosinophils % 1.2 %; Hematocrit 40.1 % (42.0-52.0); Hemoglobin 13.9 g/dL (11.7-16.6); Lymphocytes # 1.6 10^3/uL (0.8-4.8); Lymphocytes % 20.8 %; Mean Corpuscular HGB Conc 34.7 g/dL (30.0-36.0); Mean Corpuscular Hemoglobin 32.7 pg (28.0-34.0); Mean Corpuscular Volume 94.4 fl (80-94); Mean Platelet Volume 10.9 fL (7.4-10.4); Monocytes # 0.7 10^3/uL (0.2-0.9); Monocytes % 8.7 %; Neutrophils # 5.33 10^3/uL (1.8-7.7); Neutrophils % 68.7 %; Nucleated Red Blood Cells % 0 %; Platelet Count 254 10^3/cmm (130-400); Red Blood Count 4.25 10^6/uL (4.1-5.3); Red Cell Distribution Width 12.3 % (12.1-15.1); White Blood Count 7.7 10^3/uL (4.0-10.0)
[2022-01-23] MEDS: lidocaine 1% INJ 20 mL SUBCUT (16:10)
[2022-01-23 16:21] LABS: Alanine Aminotransferase 12 U/L (0-41); Alkaline Phosphatase 107 IU/L (40-130); Anion Gap 13.2 (5-19); Aspartate Amino Transferase 13 U/L (0-40); Blood Urea Nitrogen 15 mg/dL (8-23); Calcium 8.9 mg/dL (8.5-10.5); Carbon Dioxide 27 mmol/L (22-29); Chloride 105 mmol/L (98-107); Globulin 2.6 g/dL (1.3-4.6); Glucose 115 mg/dL (65-115); Osmolality Calculated 294 mOsm/kg (285-295); Potassium 4.2 mmol/L (3.5-5.1); Sodium 141 mmol/L (136-145); Total Bilirubin 0.5 mg/dL (0.15-1.2); Total Protein 6.6 g/dL (6.6-8.7)
[2022-01-23] MEDS: goserelin acetate 10.8 mg Implant SUBCUT (16:26)
[2022-01-23 16:40] VITALS: BP 122/72; PULSE 18; RESP 65; TEMP 36.1; O2SAT 97
== END 2022-02-09 23:59 | disposition home or self-care (01) ==
PROVIDERS: PCP Family Medicine; Visit Provider Internal Medicine Medical Oncology
DX: Z51.11 Encounter for antineoplastic chemotherapy (principal); C61 Malignant neoplasm of prostate; C79.51 Secondary malignant neoplasm of bone; Z51.81 Encounter for therapeutic drug level monitoring; Z79.01 Long term (current) use of anticoagulants
CPT/HCPCS: 36415; 80053; 84153; 85025; 85610; 96372; 96402; 99214; J9202

== ENCOUNTER 2022-03-31 08:23 | Oncology outpatient (recurring) (ONCR) | payer MEDICARE, SELFPAY ==
--- NOTE | 2022-03-31 09:30 | USCV_ITS ---
David Sahu Age: 81 Gender: M : 1940 Exam Date: 03/31/2022 09:19 Ordering Phys: Brittaney Gunter NP Technologist: ANSELMO Exam Location: [facility] [place] Indication: RLE PAIN, SWELLING, AND DISCOLORATION HISTORY: Lower extremity swelling. Lower extremity pain. PROCEDURES: Venous duplex imaging was performed in only the right lower extremity. The following venous structures were evaluated: common femoral vein, profunda vein, proximal portion of the greater saphenous vein, superficial femoral vein, and the popliteal vein. In addition, the posterior tibial and peroneal trunk were evaluated. Serial compression, augmentation maneuvers, and spectral Doppler flow evaluation were performed. FINDINGS: No evidence of DVT seen in any vessel visualized at this time. Edema seen in Right lower Leg CONCLUSIONS No evidence of right lower extremity DVT. Blane Rudd MD (Electronically Signed) Final Date: 31 March 2022 11:11 S
[2022-03-31 09:51] LABS: Basophils % 0.2 %; Eosinophils # 0.1 10^3/uL (0.0-0.8); Hemoglobin 14.2 g/dL (11.7-16.6); Lymphocytes # 2.1 10^3/uL (0.8-4.8); Mean Corpuscular Hemoglobin 32.3 pg (28.0-34.0); Mean Corpuscular Volume 97.7 fl (80-94); Mean Platelet Volume 10.3 fL (7.4-10.4); Monocytes # 0.8 10^3/uL (0.2-0.9); Monocytes % 8.4 %; Neutrophils # 6.88 10^3/uL (1.8-7.7); Nucleated Red Blood Cells % 0 %; Platelet Count 247 10^3/cmm (130-400); Red Cell Distribution Width 12.6 % (12.1-15.1)
[2022-03-31 10:10] LABS: INR 2.29 (0.8-1.2)
== END 2022-04-12 23:59 | disposition home or self-care (01) ==
PROVIDERS: Nurse Practitioner Family; PCP Family Medicine; Visit Provider Internal Medicine Medical Oncology
DX: C61 Malignant neoplasm of prostate (principal); C79.51 Secondary malignant neoplasm of bone; M79.661 Pain in right lower leg; I48.91 Unspecified atrial fibrillation; Z79.01 Long term (current) use of anticoagulants; Z79.818 Long term (current) use of other agents affecting estrogen receptors and estrogen levels; Z79.899 Other long term (current) drug therapy
CPT/HCPCS: 36415; 85025; 85610; 93971; 99212; 99214

== ENCOUNTER 2022-05-01 12:51 | Oncology outpatient (recurring) (ONCR) | payer MEDICARE, SELFPAY ==
[2022-05-01 13:53] LABS: INR 1.03 (0.8-1.2)
[2022-05-01] MEDS: lidocaine 1% INJ 20 mL MDV (mL) SUBCUT (15:06)
[2022-05-01] MEDS: goserelin acetate 10.8 mg Implant SUBCUT (15:17)
[2022-05-01 15:49] LABS: Basophils % 0.3 %; Eosinophils # 0.1 10^3/uL (0.0-0.8); Eosinophils % 0.5 %; Hematocrit 39.4 % (42.0-52.0); Hemoglobin 12.9 g/dL (11.7-16.6); Lymphocytes # 2.1 10^3/uL (0.8-4.8); Lymphocytes % 20.8 %; Mean Corpuscular HGB Conc 32.7 g/dL (30.0-36.0); Mean Corpuscular Hemoglobin 32.5 pg (28.0-34.0); Mean Corpuscular Volume 99.2 fl (80-94); Mean Platelet Volume 10.7 fL (7.4-10.4); Monocytes # 0.6 10^3/uL (0.2-0.9); Monocytes % 5.7 %; Neutrophils # 7.43 10^3/uL (1.8-7.7); Neutrophils % 72.2 %; Nucleated Red Blood Cells % 0 %; Platelet Count 239 10^3/cmm (130-400); Red Blood Count 3.97 10^6/uL (4.1-5.3); Red Cell Distribution Width 12.7 % (12.1-15.1); White Blood Count 10.3 10^3/uL (4.0-10.0)
[2022-05-01 16:14] LABS: Alanine Aminotransferase 14 U/L (0-41); Albumin Level 3.8 g/dL (3.5-5.2); Alkaline Phosphatase 103 U/L (40-130); Aspartate Amino Transferase 13 U/L (0-40); Blood Urea Nitrogen 14 mg/dL (8-23); Calcium 9.2 mg/dL (8.5-10.5); Carbon Dioxide 26 mmol/L (22-29); Chloride 104 mmol/L (98-107); Globulin 2.6 g/dL (1.3-4.6); Glucose 117 mg/dL (65-115); Osmolality Calculated 290 mOsm/kg (285-295); Prostate Specific Antigen 0.028 ng/mL (0-4); Sodium 139 mmol/L (136-145); Testosterone Total 2.5 ng/dL (193-740); Total Bilirubin 0.5 mg/dL (0.15-1.2); Total Protein 6.4 g/dL (6.6-8.7)
[2022-05-01 16:20] LABS: Anion Gap 13.7 (5-19); Potassium 4.7 mmol/L (3.5-5.1)
== END 2022-05-12 23:59 | disposition home or self-care (01) ==
PROVIDERS: PCP Family Medicine; Visit Provider Internal Medicine Medical Oncology
DX: C61 Malignant neoplasm of prostate (principal); C79.51 Secondary malignant neoplasm of bone; Z79.818 Long term (current) use of other agents affecting estrogen receptors and estrogen levels; Z79.899 Other long term (current) drug therapy; Z87.891 Personal history of nicotine dependence; Z79.52 Long term (current) use of systemic steroids; R91.8 Other nonspecific abnormal finding of lung field; R53.83 Other fatigue; Z79.01 Long term (current) use of anticoagulants
CPT/HCPCS: 36415; 80053; 84153; 84403; 85025; 85610; 96372; 96402; 99214; 99215; J9202

== ENCOUNTER 2022-07-28 08:33 | Oncology outpatient (recurring) (ONCR) | payer MEDICARE, SELFPAY ==
[2022-07-28 08:58] LABS: Basophils % 0.4 %; Eosinophils # 0.2 10^3/uL (0.0-0.8); Eosinophils % 2.3 %; Hematocrit 43.5 % (42.0-52.0); Hemoglobin 14.3 g/dL (11.7-16.6); Lymphocytes # 2.3 10^3/uL (0.8-4.8); Lymphocytes % 24.6 %; Mean Corpuscular HGB Conc 32.9 g/dL (30.0-36.0); Mean Corpuscular Hemoglobin 33.3 pg (28.0-34.0); Mean Corpuscular Volume 101.2 fl (80-94); Mean Platelet Volume 10.8 fL (7.4-10.4); Monocytes # 0.9 10^3/uL (0.2-0.9); Monocytes % 9.2 %; Neutrophils # 5.97 10^3/uL (1.8-7.7); Neutrophils % 63.2 %; Nucleated Red Blood Cells % 0 %; Platelet Count 242 10^3/cmm (130-400); Red Cell Distribution Width 12.3 % (12.1-15.1); White Blood Count 9.5 10^3/uL (4.0-10.0)
[2022-07-28 09:18] LABS: Alanine Aminotransferase 11 U/L (0-41); Albumin Level 3.9 g/dL (3.5-5.2); Alkaline Phosphatase 108 U/L (40-130); Anion Gap 11.3 (5-19); Aspartate Amino Transferase 9 U/L (0-40); Blood Urea Nitrogen 11 mg/dL (8-23); Calcium 8.8 mg/dL (8.5-10.5); Carbon Dioxide 27 mmol/L (22-29); Chloride 103 mmol/L (98-107); Globulin 2.5 g/dL (1.3-4.6); Glucose 106 mg/dL (65-115); Osmolality Calculated 286 mOsm/kg (285-295); Potassium 3.3 mmol/L (3.5-5.1); Prostate Specific Antigen 0.019 ng/mL (0-4); Sodium 138 mmol/L (136-145); Testosterone Total 2.5 ng/dL (193-740); Total Bilirubin 0.2 mg/dL (0.15-1.2); Total Protein 6.4 g/dL (6.6-8.7)
[2022-07-28] MEDS: lidocaine 1% INJ 20 mL SUBCUT (11:04)
[2022-07-28] MEDS: goserelin acetate 10.8 mg Implant SUBCUT (11:16)
== END 2022-08-12 23:59 | disposition home or self-care (01) ==
PROVIDERS: PCP Family Medicine; Visit Provider Internal Medicine Medical Oncology
DX: C61 Malignant neoplasm of prostate (principal); C79.51 Secondary malignant neoplasm of bone; Z79.818 Long term (current) use of other agents affecting estrogen receptors and estrogen levels; Z79.899 Other long term (current) drug therapy; Z87.891 Personal history of nicotine dependence; Z79.52 Long term (current) use of systemic steroids; R91.8 Other nonspecific abnormal finding of lung field; R53.83 Other fatigue
CPT/HCPCS: 36415; 80053; 84153; 84403; 85025; 96372; 96402; 99214; J9202

== ENCOUNTER 2022-11-07 10:48 | Oncology outpatient (recurring) (ONCR) | payer MEDICARE, SELFPAY ==
[2022-10-24 13:34] LABS: Basophils % 0.5 %; Eosinophils # 0.1 10^3/uL (0.0-0.8); Eosinophils % 1.8 %; Hematocrit 41.7 % (42.0-52.0); Hemoglobin 13.7 g/dL (11.7-16.6); Lymphocytes # 1.4 10^3/uL (0.8-4.8); Lymphocytes % 21.4 %; Mean Corpuscular HGB Conc 32.9 g/dL (30.0-36.0); Mean Corpuscular Volume 97.4 fl (80-94); Mean Platelet Volume 10.8 fL (7.4-10.4); Monocytes # 0.6 10^3/uL (0.2-0.9); Monocytes % 8.3 %; Neutrophils # 4.48 10^3/uL (1.8-7.7); Neutrophils % 67.8 %; Nucleated Red Blood Cells % 0 %; Platelet Count 246 10^3/cmm (130-400); Red Blood Count 4.28 10^6/uL (4.1-5.3); Red Cell Distribution Width 12.3 % (12.1-15.1); White Blood Count 6.6 10^3/uL (4.0-10.0)
[2022-10-24 14:08] LABS: Alanine Aminotransferase 10 U/L (0-41); Albumin Level 3.9 g/dL (3.5-5.2); Alkaline Phosphatase 126 U/L (40-130); Anion Gap 13.4 (5-19); Aspartate Amino Transferase 13 U/L (0-40); Blood Urea Nitrogen 10 mg/dL (8-23); Calcium 9.2 mg/dL (8.5-10.5); Carbon Dioxide 28 mmol/L (22-29); Chloride 106 mmol/L (98-107); Globulin 2.6 g/dL (1.3-4.6); Glucose 135 mg/dL (65-115); Osmolality Calculated 297 mOsm/kg (285-295); Potassium 4.4 mmol/L (3.5-5.1); Prostate Specific Antigen < 0.014 ng/mL (0-4); Sodium 143 mmol/L (136-145); Testosterone Total 2.5 ng/dL (193-740); Total Bilirubin 0.3 mg/dL (0.15-1.2); Total Protein 6.5 g/dL (6.6-8.7)
[2022-10-24] MEDS: leuprolide 22.5 mg Kit IM (15:49)
== END 2022-11-10 23:59 | disposition home or self-care (01) ==
PROVIDERS: PCP Family Medicine; Visit Provider Internal Medicine Medical Oncology
DX: C79.51 Secondary malignant neoplasm of bone (principal); C61 Malignant neoplasm of prostate; R53.1 Weakness; Z79.818 Long term (current) use of other agents affecting estrogen receptors and estrogen levels; R60.0 Localized edema; Z79.899 Other long term (current) drug therapy
CPT/HCPCS: 36415; 80053; 84153; 84403; 85025; 96402; 99213; 99214; J9217

== ENCOUNTER 2022-12-07 09:58 | Oncology outpatient (recurring) (ONCR) | payer MEDICARE, SELFPAY ==
[2022-12-07 10:28] LABS: Basophils % 0.3 %; Eosinophils # 0.1 10^3/uL (0.0-0.8); Eosinophils % 0.7 %; Hematocrit 41.3 % (42.0-52.0); Hemoglobin 13.9 g/dL (11.7-16.6); Lymphocytes # 1.6 10^3/uL (0.8-4.8); Lymphocytes % 14.4 %; Mean Corpuscular HGB Conc 33.7 g/dL (30.0-36.0); Mean Corpuscular Volume 95.2 fl (80-94); Mean Platelet Volume 10.4 fL (7.4-10.4); Monocytes # 0.8 10^3/uL (0.2-0.9); Monocytes % 7.7 %; Neutrophils # 8.32 10^3/uL (1.8-7.7); Neutrophils % 76.6 %; Nucleated Red Blood Cells % 0 %; Platelet Count 212 10^3/cmm (130-400); Red Blood Count 4.34 10^6/uL (4.1-5.3); Red Cell Distribution Width 11.9 % (12.1-15.1); White Blood Count 10.9 10^3/uL (4.0-10.0)
[2022-12-07 10:52] LABS: Alanine Aminotransferase 9 U/L (0-41); Albumin Level 4.2 g/dL (3.5-5.2); Alkaline Phosphatase 138 U/L (40-130); Aspartate Amino Transferase 8 U/L (0-40); Blood Urea Nitrogen 12 mg/dL (8-23); Calcium 8.7 mg/dL (8.5-10.5); Carbon Dioxide 26 mmol/L (22-29); Chloride 106 mmol/L (98-107); Globulin 2.5 g/dL (1.3-4.6); Glucose 116 mg/dL (65-115); Osmolality Calculated 291 mOsm/kg (285-295); Prostate Specific Antigen < 0.014 ng/mL (0-4); Sodium 140 mmol/L (136-145); Total Bilirubin 0.6 mg/dL (0.15-1.2); Total Protein 6.7 g/dL (6.6-8.7)
== END 2022-12-10 23:59 | disposition home or self-care (01) ==
PROVIDERS: PCP Family Medicine; Visit Provider Internal Medicine Medical Oncology
DX: C79.51 Secondary malignant neoplasm of bone (principal); C61 Malignant neoplasm of prostate; Z79.899 Other long term (current) drug therapy; R53.83 Other fatigue; R53.1 Weakness; Z79.818 Long term (current) use of other agents affecting estrogen receptors and estrogen levels; Z87.891 Personal history of nicotine dependence; Z79.52 Long term (current) use of systemic steroids
CPT/HCPCS: 36415; 80053; 84153; 85025; 99214

== ENCOUNTER 2023-01-16 12:52 | Oncology outpatient (recurring) (ONCR) | payer MEDICARE, SELFPAY ==
[2023-01-16] MEDS: leuprolide 22.5 mg Kit IM (13:47)
[2023-01-16 13:50] VITALS: BP 112/70; PULSE 54; RESP 18; TEMP 36.4; O2SAT 98
[2023-01-16 14:05] LABS: Basophils % 0.4 %; Eosinophils # 0.2 10^3/uL (0.0-0.8); Eosinophils % 2.8 %; Hematocrit 40.7 % (42.0-52.0); Hemoglobin 13.7 g/dL (11.7-16.6); Lymphocytes # 1.4 10^3/uL (0.8-4.8); Lymphocytes % 18.2 %; Mean Corpuscular HGB Conc 33.7 g/dL (30.0-36.0); Mean Corpuscular Hemoglobin 32.6 pg (28.0-34.0); Mean Corpuscular Volume 96.9 fl (80-94); Mean Platelet Volume 10.7 fL (7.4-10.4); Monocytes # 0.6 10^3/uL (0.2-0.9); Monocytes % 8.1 %; Neutrophils # 5.46 10^3/uL (1.8-7.7); Neutrophils % 70.1 %; Nucleated Red Blood Cells % 0 %; Platelet Count 245 10^3/cmm (130-400); Red Cell Distribution Width 12.7 % (12.1-15.1); White Blood Count 7.8 10^3/uL (4.0-10.0)
[2023-01-16 14:26] LABS: Alanine Aminotransferase 12 U/L (0-41); Albumin Level 3.8 g/dL (3.5-5.2); Alkaline Phosphatase 129 U/L (40-130); Anion Gap 13.5 (5-19); Aspartate Amino Transferase 16 U/L (0-40); Blood Urea Nitrogen 15 mg/dL (8-23); Calcium 8.9 mg/dL (8.5-10.5); Carbon Dioxide 25 mmol/L (22-29); Chloride 105 mmol/L (98-107); Globulin 2.6 g/dL (1.3-4.6); Glucose 152 mg/dL (65-115); Osmolality Calculated 292 mOsm/kg (285-295); Potassium 4.5 mmol/L (3.5-5.1); Sodium 139 mmol/L (136-145); Total Bilirubin 0.4 mg/dL (0.15-1.2); Total Protein 6.4 g/dL (6.6-8.7)
[2023-01-16 14:52] LABS: Prostate Specific Antigen < 0.014 ng/mL (0-4)
[2023-01-16 14:53] LABS: Testosterone Total < 2.5 ng/dL (193-740)
== END 2023-02-09 23:59 | disposition home or self-care (01) ==
PROVIDERS: PCP Family Medicine; Visit Provider Internal Medicine Medical Oncology
DX: C61 Malignant neoplasm of prostate (principal)
CPT/HCPCS: 80053; 84153; 84403; 85025; 96402; J9217

== ENCOUNTER 2023-04-10 12:27 | Oncology outpatient (recurring) (ONCR) | payer MEDICARE, MEDICAID, SELFPAY ==
[2023-04-10 12:52] LABS: Basophils % 0.3 %; Eosinophils # 0.1 10^3/uL (0.0-0.8); Eosinophils % 1.3 %; Hematocrit 38.7 % (37-53); Lymphocytes # 1.6 10^3/uL (0.8-4.8); Lymphocytes % 21.8 %; Mean Corpuscular HGB Conc 33.6 g/dL (30-55); Mean Corpuscular Hemoglobin 32.1 pg (27-33); Mean Corpuscular Volume 95.6 fl (82-101); Mean Platelet Volume 10.4 fL (7.4-10.4); Monocytes # 0.5 10^3/uL (0.2-0.9); Monocytes % 6.2 %; Neutrophils # 5.22 10^3/uL (1.8-7.7); Neutrophils % 70.1 %; Nucleated Red Blood Cells % 0 %; Platelet Count 216 10^3/cmm (157-399); Red Blood Count 4.05 10^6/uL (3.85-5.65); Red Cell Distribution Width 12.1 % (12.1-15.1); White Blood Count 7.44 10^3/uL (3.29-11.43)
[2023-04-10 13:26] LABS: Alanine Aminotransferase 6 U/L (0-41); Alkaline Phosphatase 116 U/L (40-130); Anion Gap 10.8 (5-19); Aspartate Amino Transferase 12 U/L (0-40); Blood Urea Nitrogen 16 mg/dL (8-23); Calcium 8.2 mg/dL (8.5-10.5); Carbon Dioxide 28 mmol/L (22-29); Chloride 105 mmol/L (98-107); Globulin 2.3 g/dL (1.3-4.6); Glucose 110 mg/dL (65-115); Osmolality Calculated 290 mOsm/kg (285-295); Potassium 4.8 mmol/L (3.5-5.1); Sodium 139 mmol/L (136-145); Total Bilirubin 0.6 mg/dL (0.15-1.2); Total Protein 6.3 g/dL (6.6-8.7)
[2023-04-10 13:29] LABS: Prostate Specific Antigen < 0.014 ng/mL (0-4)
[2023-04-10] MEDS: leuprolide 22.5 mg Kit IM (14:34)
== END 2023-04-12 23:59 | disposition home or self-care (01) ==
PROVIDERS: PCP Family Medicine; Visit Provider Internal Medicine Medical Oncology
DX: C79.51 Secondary malignant neoplasm of bone (principal); C61 Malignant neoplasm of prostate; Z79.899 Other long term (current) drug therapy; R53.83 Other fatigue; R53.1 Weakness; Z79.818 Long term (current) use of other agents affecting estrogen receptors and estrogen levels; R60.9 Edema, unspecified; Z87.891 Personal history of nicotine dependence; Z79.52 Long term (current) use of systemic steroids; R91.8 Other nonspecific abnormal finding of lung field
CPT/HCPCS: 80053; 84153; 85025; 96402; 99214; J9217

== ENCOUNTER 2023-07-02 13:20 | Oncology outpatient (recurring) (ONCR) | payer MEDICARE, MEDICAID, SELFPAY ==
[2023-07-02 14:46] LABS: Basophils % 0.3 %; Eosinophils # 0.1 10^3/uL (0.0-0.8); Eosinophils % 1.3 %; Hematocrit 42.6 % (37-53); Lymphocytes # 2.1 10^3/uL (0.8-4.8); Lymphocytes % 23.5 %; Mean Corpuscular HGB Conc 33.8 g/dL (30-55); Mean Corpuscular Volume 94.7 fl (82-101); Mean Platelet Volume 10.5 fL (7.4-10.4); Monocytes # 0.6 10^3/uL (0.2-0.9); Monocytes % 6.8 %; Neutrophils # 6.06 10^3/uL (1.8-7.7); Neutrophils % 67.8 %; Nucleated Red Blood Cells % 0 %; Platelet Count 261 10^3/cmm (157-399); Red Cell Distribution Width 12.3 % (12.1-15.1); White Blood Count 8.95 10^3/uL (3.29-11.43)
[2023-07-02 15:19] LABS: Alanine Aminotransferase 13 U/L (0-41); Alkaline Phosphatase 111 U/L (40-130); Anion Gap 12.4 (5-19); Aspartate Amino Transferase 11 U/L (0-40); Blood Urea Nitrogen 13 mg/dL (8-23); Calcium 9.3 mg/dL (8.5-10.5); Carbon Dioxide 27 mmol/L (22-29); Chloride 106 mmol/L (98-107); Globulin 2.7 g/dL (1.3-4.6); Glucose 126 mg/dL (65-115); Osmolality Calculated 294 mOsm/kg (285-295); Potassium 4.4 mmol/L (3.5-5.1); Prostate Specific Antigen < 0.014 ng/mL (0-4); Sodium 141 mmol/L (136-145); Testosterone Total 2.5 ng/dL (193-740); Total Bilirubin 0.5 mg/dL (0.15-1.2); Total Protein 6.7 g/dL (6.6-8.7)
[2023-07-02] MEDS: leuprolide 22.5 mg Kit IM (15:50)
== END 2023-07-12 23:59 | disposition home or self-care (01) ==
PROVIDERS: Internal Medicine Medical Oncology; PCP Family Medicine; Visit Provider Internal Medicine Medical Oncology
DX: C79.51 Secondary malignant neoplasm of bone (principal); C61 Malignant neoplasm of prostate; Z79.899 Other long term (current) drug therapy; R53.83 Other fatigue; R53.1 Weakness; Z79.818 Long term (current) use of other agents affecting estrogen receptors and estrogen levels; R60.9 Edema, unspecified; Z87.891 Personal history of nicotine dependence; Z79.52 Long term (current) use of systemic steroids; R91.8 Other nonspecific abnormal finding of lung field; Z51.11 Encounter for antineoplastic chemotherapy
CPT/HCPCS: 36415; 80053; 84153; 84403; 85025; 96402; 99214; J9217

== ENCOUNTER 2023-10-05 14:14 | Outpatient (CLI) | payer MEDICARE, SELFPAY ==
--- NOTE | 2023-10-05 14:30 | XR_ITS ---
WS: [id number] SCREENING DEXA SCAN [email or web address] CLINICAL INFORMATION: androgen deprivation therapy COMPARISON: None. FINDINGS: The L2-L4 bone mineral density measures 1.42. This corresponds to a T score score of 1.5 and Z score of 2.1. Left femoral neck bone mineral density measures 0.891 g/cm2. This corresponds to a T score of -1.5 an d Z score of -0.2. Right femoral neck bone mineral density measures 0.869 g/cm2. This corresponds to a T score -1.6of an d Z score of -0.4. Mean femoral neck bone mineral density measures 0.880 g/cm2. This corresponds to a T score of -1.5 an d Z score of -0.3. IMPRESSION: Normal bone mineralization lumbar spine. Osteopenia femoral necks. Patient's FRAX calculated 10 year probability for major osteoporotic fracture is 14.3% and osteoporot ic hip fracture is 5.7%.
== END 2023-10-05 14:15 | disposition home or self-care (01) ==
LOC: RAD 14:15
PROVIDERS: PCP Family Medicine; Visit Provider Internal Medicine Medical Oncology
DX: Z13.820 Encounter for screening for osteoporosis (principal); Z79.818 Long term (current) use of other agents affecting estrogen receptors and estrogen levels; M85.852 Other specified disorders of bone density and structure, left thigh; M85.851 Other specified disorders of bone density and structure, right thigh
CPT/HCPCS: 77080

== ENCOUNTER 2023-10-09 12:18 | Oncology outpatient (recurring) (ONCR) | payer MEDICARE, SELFPAY ==
[2023-10-09 12:34] LABS: Basophils % 0.4 %; Eosinophils # 0.2 10^3/uL (0.0-0.8); Eosinophils % 2.7 %; Hematocrit 38.8 % (37-53); Lymphocytes # 1.9 10^3/uL (0.8-4.8); Lymphocytes % 23.7 %; Mean Corpuscular HGB Conc 33.8 g/dL (30-55); Mean Corpuscular Hemoglobin 32.3 pg (27-33); Mean Corpuscular Volume 95.6 fl (82-101); Monocytes # 0.7 10^3/uL (0.2-0.9); Monocytes % 8.5 %; Neutrophils # 5.23 10^3/uL (1.8-7.7); Neutrophils % 64.5 %; Nucleated Red Blood Cells % 0 %; Platelet Count 233 10^3/cmm (157-399); Red Blood Count 4.06 10^6/uL (3.85-5.65); Red Cell Distribution Width 12.3 % (12.1-15.1); White Blood Count 8.11 10^3/uL (3.29-11.43)
[2023-10-09 13:01] LABS: Alanine Aminotransferase 11 U/L (0-41); Albumin Level 3.7 g/dL (3.5-5.2); Alkaline Phosphatase 108 U/L (40-130); Anion Gap 13.1 (5-19); Aspartate Amino Transferase 10 U/L (0-40); Blood Urea Nitrogen 13 mg/dL (8-23); Calcium 8.8 mg/dL (8.5-10.5); Carbon Dioxide 27 mmol/L (22-29); Chloride 105 mmol/L (98-107); Globulin 2.5 g/dL (1.3-4.6); Glucose 105 mg/dL (65-115); Osmolality Calculated 292 mOsm/kg (285-295); Potassium 4.1 mmol/L (3.5-5.1); Sodium 141 mmol/L (136-145); Testosterone Total 2.5 ng/dL (193-740); Total Bilirubin 0.4 mg/dL (0.15-1.2); Total Protein 6.2 g/dL (6.6-8.7)
[2023-10-09 13:10] LABS: Prostate Specific Antigen < 0.014 ng/mL (0-4)
[2023-10-09] MEDS: leuprolide 22.5 mg Kit IM (14:47)
[2023-10-09 14:52] VITALS: BP 124/82; PULSE 72; RESP 17; TEMP 36.6; O2SAT 98
== END 2023-10-11 23:59 | disposition home or self-care (01) ==
PROVIDERS: PCP Family Medicine; Visit Provider Internal Medicine Medical Oncology
DX: C79.51 Secondary malignant neoplasm of bone; C61 Malignant neoplasm of prostate; Z79.899 Other long term (current) drug therapy; Z79.818 Long term (current) use of other agents affecting estrogen receptors and estrogen levels; Z87.891 Personal history of nicotine dependence; Z79.52 Long term (current) use of systemic steroids; Z51.12 Encounter for antineoplastic immunotherapy; M85.80 Other specified disorders of bone density and structure, unspecified site
CPT/HCPCS: 36415; 80053; 84153; 84403; 85025; 96402; 99214; J9217

== ENCOUNTER 2024-01-01 11:57 | Oncology outpatient (recurring) (ONCR) | payer MEDICARE, SELFPAY ==
[2024-01-01 12:28] VITALS: BP 102/60; PULSE 50; RESP 18; TEMP 36.4; O2SAT 95
[2024-01-01 12:33] LABS: Basophils % 0.4 %; Eosinophils # 0.2 10^3/uL (0.0-0.8); Hematocrit 40.1 % (37-53); Lymphocytes # 1.6 10^3/uL (0.8-4.8); Lymphocytes % 20.3 %; Mean Corpuscular HGB Conc 33.4 g/dL (30-55); Mean Corpuscular Hemoglobin 32.4 pg (27-33); Mean Corpuscular Volume 96.9 fl (82-101); Mean Platelet Volume 10.6 fL (7.4-10.4); Monocytes # 0.5 10^3/uL (0.2-0.9); Monocytes % 6.6 %; Neutrophils # 5.58 10^3/uL (1.8-7.7); Neutrophils % 70.6 %; Nucleated Red Blood Cells % 0 %; Platelet Count 236 10^3/cmm (157-399); Red Blood Count 4.14 10^6/uL (3.85-5.65); Red Cell Distribution Width 12.6 % (12.1-15.1)
[2024-01-01 12:58] LABS: Alanine Aminotransferase 12 U/L (0-41); Albumin Level 3.7 g/dL (3.5-5.2); Alkaline Phosphatase 106 U/L (40-130); Anion Gap 14.2 (5-19); Aspartate Amino Transferase 11 U/L (0-40); Blood Urea Nitrogen 16 mg/dL (8-23); Calcium 8.8 mg/dL (8.5-10.5); Carbon Dioxide 24 mmol/L (22-29); Chloride 107 mmol/L (98-107); Globulin 2.7 g/dL (1.3-4.6); Glucose 146 mg/dL (65-115); Osmolality Calculated 296 mOsm/kg (285-295); Potassium 4.2 mmol/L (3.5-5.1); Sodium 141 mmol/L (136-145); Testosterone Total 2.5 ng/dL (193-740); Total Bilirubin 0.4 mg/dL (0.15-1.2); Total Protein 6.4 g/dL (6.6-8.7)
[2024-01-01 13:09] LABS: Prostate Specific Antigen < 0.014 ng/mL (0-4)
[2024-01-01] MEDS: leuprolide 22.5 mg Kit IM (14:05)
== END 2024-01-11 23:59 | disposition home or self-care (01) ==
PROVIDERS: Nurse Practitioner Family; PCP Family Medicine; Visit Provider Internal Medicine Medical Oncology
DX: Z51.11 Encounter for antineoplastic chemotherapy (principal); C61 Malignant neoplasm of prostate
CPT/HCPCS: 36415; 80053; 84153; 84403; 85025; 96402; J9217

== ENCOUNTER 2024-03-31 10:51 | Oncology outpatient (recurring) (ONCR) | payer MEDICARE, SELFPAY ==
[2024-03-31 11:25] LABS: Basophils % 0.4 %; Eosinophils # 0.1 10^3/uL (0.0-0.8); Eosinophils % 1.5 %; Hematocrit 38.5 % (37-53); Lymphocytes # 1.4 10^3/uL (0.8-4.8); Lymphocytes % 18.4 %; Mean Corpuscular HGB Conc 33.8 g/dL (30-55); Mean Corpuscular Hemoglobin 32.6 pg (27-33); Mean Corpuscular Volume 96.5 fl (82-101); Mean Platelet Volume 10.3 fL (7.4-10.4); Monocytes # 0.6 10^3/uL (0.2-0.9); Monocytes % 7.8 %; Neutrophils # 5.59 10^3/uL (1.8-7.7); Neutrophils % 71.5 %; Nucleated Red Blood Cells % 0 %; Platelet Count 207 10^3/cmm (157-399); Red Blood Count 3.99 10^6/uL (3.85-5.65); Red Cell Distribution Width 12.5 % (12.1-15.1); White Blood Count 7.82 10^3/uL (3.29-11.43)
[2024-03-31 11:52] LABS: Alanine Aminotransferase 13 U/L (0-41); Albumin Level 3.6 g/dL (3.5-5.2); Alkaline Phosphatase 97 U/L (40-130); Anion Gap 14.5 (5-19); Aspartate Amino Transferase 17 U/L (0-40); Blood Urea Nitrogen 13 mg/dL (8-23); Calcium 8.6 mg/dL (8.5-10.5); Carbon Dioxide 25 mmol/L (22-29); Chloride 109 mmol/L (98-107); Globulin 2.4 g/dL (1.3-4.6); Glucose 109 mg/dL (65-115); Osmolality Calculated 299 mOsm/kg (285-295); Potassium 4.5 mmol/L (3.5-5.1); Sodium 144 mmol/L (136-145); Testosterone Total 2.5 ng/dL (193-740); Total Bilirubin 0.5 mg/dL (0.15-1.2)
[2024-03-31 11:58] LABS: Prostate Specific Antigen < 0.014 ng/mL (0-4)
[2024-03-31] MEDS: leuprolide 22.5 mg Kit IM (13:02)
== END 2024-04-12 23:59 | disposition home or self-care (01) ==
PROVIDERS: PCP Family Medicine; Visit Provider Internal Medicine Medical Oncology
DX: Z53.9 Procedure and treatment not carried out, unspecified reason (principal); Z51.11 Encounter for antineoplastic chemotherapy; C61 Malignant neoplasm of prostate; C79.51 Secondary malignant neoplasm of bone; Z87.891 Personal history of nicotine dependence; R91.8 Other nonspecific abnormal finding of lung field; Z79.52 Long term (current) use of systemic steroids; Z79.818 Long term (current) use of other agents affecting estrogen receptors and estrogen levels
CPT/HCPCS: 36415; 80053; 84153; 84403; 85025; 96402; 99214; J9217

== ENCOUNTER 2024-06-23 15:12 | Oncology outpatient (recurring) (ONCR) | payer MEDICARE, SELFPAY ==
[2024-06-23 15:39] LABS: Basophils % 0.4 %; Eosinophils # 0.1 10^3/uL (0.0-0.8); Eosinophils % 1.1 %; Hematocrit 40.9 % (37-53); Lymphocytes # 1.6 10^3/uL (0.8-4.8); Lymphocytes % 19.2 %; Mean Corpuscular Hemoglobin 32.1 pg (27-33); Mean Corpuscular Volume 97.1 fl (82-101); Mean Platelet Volume 10.2 fL (7.4-10.4); Monocytes # 0.6 10^3/uL (0.2-0.9); Monocytes % 7.7 %; Neutrophils # 5.85 10^3/uL (1.8-7.7); Neutrophils % 71.2 %; Nucleated Red Blood Cells % 0 %; Platelet Count 234 10^3/cmm (157-399); Red Blood Count 4.21 10^6/uL (3.85-5.65); Red Cell Distribution Width 12.6 % (12.1-15.1); White Blood Count 8.21 10^3/uL (3.29-11.43)
[2024-06-23 16:11] LABS: Alanine Aminotransferase 19 U/L (0-41); Alkaline Phosphatase 101 U/L (40-130); Anion Gap 13.1 (5-19); Aspartate Amino Transferase 16 U/L (0-40); Blood Urea Nitrogen 11 mg/dL (8-23); Calcium 8.7 mg/dL (8.5-10.5); Carbon Dioxide 29 mmol/L (22-29); Chloride 108 mmol/L (98-107); Creatinine Clr Calc Pharmacy 65.1102; Globulin 2.5 g/dL (1.3-4.6); Glucose 132 mg/dL (65-115); Osmolality Calculated 303 mOsm/kg (285-295); Potassium 4.1 mmol/L (3.5-5.1); Sodium 146 mmol/L (136-145); Testosterone Total 2.5 ng/dL (193-740); Total Bilirubin 0.3 mg/dL (0.15-1.2); Total Protein 6.5 g/dL (6.6-8.7)
[2024-06-23 16:15] LABS: Prostate Specific Antigen < 0.014 ng/mL (0-4)
[2024-06-23] MEDS: leuprolide 22.5 mg Kit IM (16:36)
[2024-06-23] MEDS: zoledronic acid (Zometa) 4 MG/100 ML PIGGYBACK 400 MG IV (16:51)
[2024-06-23 17:05] VITALS: BP 146/78; PULSE 54; RESP 16; TEMP 36.5; O2SAT 99
== END 2024-07-12 23:59 | disposition home or self-care (01) ==
PROVIDERS: Internal Medicine Medical Oncology; PCP Family Medicine; Visit Provider Internal Medicine Hematology & Oncology
DX: Z51.11 Encounter for antineoplastic chemotherapy; C61 Malignant neoplasm of prostate; C79.51 Secondary malignant neoplasm of bone; Z87.891 Personal history of nicotine dependence; R91.8 Other nonspecific abnormal finding of lung field; Z79.52 Long term (current) use of systemic steroids; Z79.818 Long term (current) use of other agents affecting estrogen receptors and estrogen levels
CPT/HCPCS: 80053; 84153; 84403; 85025; 96365; 96402; 99214; J3489; J9217

== ENCOUNTER 2024-09-22 13:57 | Oncology outpatient (recurring) (ONCR) | payer MEDICARE, SELFPAY ==
[2024-09-22 14:36] LABS: Basophils % 0.2 %; Eosinophils # 0.1 10^3/uL (0.0-0.8); Eosinophils % 1.5 %; Hematocrit 42.3 % (37-53); Lymphocytes # 1.6 10^3/uL (0.8-4.8); Lymphocytes % 18.8 %; Mean Corpuscular HGB Conc 33.1 g/dL (30-55); Mean Corpuscular Hemoglobin 31.6 pg (27-33); Mean Corpuscular Volume 95.5 fl (82-101); Mean Platelet Volume 10.9 fL (7.4-10.4); Monocytes # 0.7 10^3/uL (0.2-0.9); Monocytes % 7.7 %; Neutrophils # 6.16 10^3/uL (1.8-7.7); Neutrophils % 71.5 %; Nucleated Red Blood Cells % 0 %; Platelet Count 248 10^3/cmm (157-399); Red Blood Count 4.43 10^6/uL (3.85-5.65); Red Cell Distribution Width 12.4 % (12.1-15.1); White Blood Count 8.62 10^3/uL (3.29-11.43)
[2024-09-22 15:08] LABS: Alanine Aminotransferase 10 U/L (0-41); Albumin Level 4.1 g/dL (3.5-5.2); Alkaline Phosphatase 85 U/L (40-130); Anion Gap 15.4 (5-19); Aspartate Amino Transferase 11 U/L (0-40); Blood Urea Nitrogen 15 mg/dL (8-23); Calcium 8.9 mg/dL (8.5-10.5); Carbon Dioxide 25 mmol/L (22-29); Chloride 105 mmol/L (98-107); Creatinine Clr Calc Pharmacy 64.0322; Globulin 2.6 g/dL (1.3-4.6); Glucose 120 mg/dL (65-115); Osmolality Calculated 294 mOsm/kg (285-295); Potassium 4.4 mmol/L (3.5-5.1); Prostate Specific Antigen < 0.014 ng/mL (0-4); Sodium 141 mmol/L (136-145); Testosterone Total < 2.5 ng/dL (193-740); Total Bilirubin 0.4 mg/dL (0.15-1.2); Total Protein 6.7 g/dL (6.6-8.7)
[2024-09-22] MEDS: zoledronic acid (Zometa) 4 MG/100 ML PIGGYBACK 400 MG IV (15:32)
[2024-09-22] MEDS: leuprolide 22.5 mg Kit IM (15:37)
== END 2024-10-10 23:59 | disposition home or self-care (01) ==
PROVIDERS: Nurse Practitioner Family; PCP Family Medicine; Visit Provider Internal Medicine Medical Oncology
DX: Z51.11 Encounter for antineoplastic chemotherapy (principal); C61 Malignant neoplasm of prostate; C79.51 Secondary malignant neoplasm of bone; R91.8 Other nonspecific abnormal finding of lung field; M81.0 Age-related osteoporosis without current pathological fracture; Z87.891 Personal history of nicotine dependence; Z79.818 Long term (current) use of other agents affecting estrogen receptors and estrogen levels; Z79.83 Long term (current) use of bisphosphonates
CPT/HCPCS: 80053; 84153; 84403; 85025; 96365; 96402; 99214; J3489; J9217

== ENCOUNTER 2024-12-15 11:32 | Oncology outpatient (recurring) (ONCR) | payer MEDICARE, SELFPAY ==
[2024-12-15 11:37] LABS: Basophils % 0.2 %; Eosinophils # 0.3 10^3/uL (0.0-0.8); Hematocrit 39.7 % (37-53); Lymphocytes # 1.4 10^3/uL (0.8-4.8); Lymphocytes % 15.3 %; Mean Corpuscular HGB Conc 33.2 g/dL (30-55); Mean Corpuscular Hemoglobin 32.4 pg (27-33); Mean Corpuscular Volume 97.3 fl (82-101); Mean Platelet Volume 10.4 fL (7.4-10.4); Monocytes # 0.7 10^3/uL (0.2-0.9); Monocytes % 7.9 %; Neutrophils # 6.66 10^3/uL (1.8-7.7); Neutrophils % 73.3 %; Nucleated Red Blood Cells % 0 %; Platelet Count 217 10^3/cmm (157-399); Red Blood Count 4.08 10^6/uL (3.85-5.65); Red Cell Distribution Width 12.7 % (12.1-15.1); White Blood Count 9.09 10^3/uL (3.29-11.43)
[2024-12-15 12:06] LABS: Alanine Aminotransferase 19 U/L (0-41); Albumin Level 3.7 g/dL (3.5-5.2); Alkaline Phosphatase 83 U/L (40-130); Aspartate Amino Transferase 14 U/L (0-40); Blood Urea Nitrogen 14 mg/dL (8-23); Calcium 8.5 mg/dL (8.5-10.5); Carbon Dioxide 24 mmol/L (22-29); Chloride 108 mmol/L (98-107); Creatinine Clr Calc Pharmacy 71.4068; Globulin 2.9 g/dL (1.3-4.6); Glucose 135 mg/dL (65-115); Osmolality Calculated 295 mOsm/kg (285-295); Sodium 141 mmol/L (136-145); Total Bilirubin 0.4 mg/dL (0.15-1.2); Total Protein 6.6 g/dL (6.6-8.7)
[2024-12-15 12:10] LABS: Anion Gap 13.2 (5-19); Potassium 4.2 mmol/L (3.5-5.1); Prostate Specific Antigen < 0.014 ng/mL (0-4); Testosterone Total < 2.5 ng/dL (193-740)
[2024-12-15] MEDS: zoledronic acid (Zometa) 4 MG/100 ML PIGGYBACK 400 MG IV (12:55)
[2024-12-15] MEDS: leuprolide 22.5 mg Kit IM (12:58)
== END 2025-01-10 23:59 | disposition home or self-care (01) ==
PROVIDERS: PCP Family Medicine; Visit Provider Internal Medicine Medical Oncology
DX: Z51.11 Encounter for antineoplastic chemotherapy (principal); C61 Malignant neoplasm of prostate; C79.51 Secondary malignant neoplasm of bone; R91.8 Other nonspecific abnormal finding of lung field; Z87.891 Personal history of nicotine dependence; Z79.818 Long term (current) use of other agents affecting estrogen receptors and estrogen levels
CPT/HCPCS: 80053; 84153; 84403; 85025; 96365; 96372; 96402; 99214; J3489; J9217

== ENCOUNTER 2025-03-25 09:58 | Oncology outpatient (recurring) (ONCR) | payer MEDICARE, SELFPAY ==
[2025-03-25 10:22] LABS: Hematocrit 38.7 % (37-53); Hemoglobin 13.00 g/dL (11.27-16.99); Mean Corpuscular HGB Conc 33.6 g/dL (30-55); Mean Corpuscular Hemoglobin 31.9 pg (27-33); Mean Corpuscular Volume 94.9 fl (82-101); Nucleated Red Blood Cells % 0 %; Platelet Count 226 10^3/cmm (157-399); Red Blood Count 4.08 10^6/uL (3.85-5.65); White Blood Count 8.32 10^3/uL (3.29-11.43)
[2025-03-25 10:54] LABS: Alanine Aminotransferase 16 U/L (0-41); Albumin Level 3.6 g/dL (3.5-5.2); Alkaline Phosphatase 82 U/L (40-130); Anion Gap 12.4 (5-19); Aspartate Amino Transferase 17 U/L (0-40); Blood Urea Nitrogen 16 mg/dL (8-23); Calcium 8.3 mg/dL (8.5-10.5); Carbon Dioxide 24 mmol/L (22-29); Chloride 110 mmol/L (98-107); Creatinine Clr Calc Pharmacy 57.2616; Globulin 2.7 g/dL (1.3-4.6); Glucose 122 mg/dL (65-115); Osmolality Calculated 296 mOsm/kg (285-295); Potassium 4.4 mmol/L (3.5-5.1); Sodium 142 mmol/L (136-145); Total Protein 6.3 g/dL (6.6-8.7)
[2025-03-25 10:58] LABS: Prostate Specific Antigen < 0.014 ng/mL (0-4)
[2025-03-25] MEDS: leuprolide 22.5 mg Kit IM (11:41)
[2025-03-25] MEDS: zoledronic acid (Zometa) 4 MG/100 ML PIGGYBACK 400 MG IV (11:41)
== END 2025-04-12 23:59 | disposition home or self-care (01) ==
PROVIDERS: PCP Family Medicine; Visit Provider Internal Medicine Medical Oncology
DX: Z51.11 Encounter for antineoplastic chemotherapy (principal); C61 Malignant neoplasm of prostate; C79.51 Secondary malignant neoplasm of bone; Z79.818 Long term (current) use of other agents affecting estrogen receptors and estrogen levels; Z87.891 Personal history of nicotine dependence; M81.0 Age-related osteoporosis without current pathological fracture; Z79.899 Other long term (current) drug therapy
CPT/HCPCS: 80053; 84153; 84403; 85025; 96365; 96372; 99213; J3489; J9217

== ENCOUNTER 2025-06-10 12:26 | Oncology outpatient (recurring) (ONCR) | payer MEDICARE, SELFPAY ==
[2025-06-10 12:49] LABS: Hematocrit 42.8 % (37-53); Hemoglobin 14.20 g/dL (11.27-16.99); Mean Corpuscular HGB Conc 33.2 g/dL (30-55); Mean Corpuscular Hemoglobin 31.8 pg (27-33); Mean Corpuscular Volume 95.7 fl (82-101); Nucleated Red Blood Cells % 0 %; Platelet Count 240 10^3/cmm (157-399); Red Blood Count 4.47 10^6/uL (3.85-5.65); White Blood Count 8.19 10^3/uL (3.29-11.43)
[2025-06-10 13:22] LABS: Alanine Aminotransferase 15 U/L (0-41); Albumin Level 4.1 g/dL (3.5-5.2); Alkaline Phosphatase 85 U/L (40-130); Anion Gap 16.0 (5-19); Aspartate Amino Transferase 14 U/L (0-40); Blood Urea Nitrogen 12 mg/dL (8-23); Calcium 8.4 mg/dL (8.5-10.5); Carbon Dioxide 24 mmol/L (22-29); Chloride 107 mmol/L (98-107); Creatinine Clr Calc Pharmacy 70.9496; Globulin 2.6 g/dL (1.3-4.6); Glucose 108 mg/dL (65-115); Osmolality Calculated 296 mOsm/kg (285-295); Potassium 4.0 mmol/L (3.5-5.1); Sodium 143 mmol/L (136-145); Total Protein 6.7 g/dL (6.6-8.7)
[2025-06-10 13:26] LABS: Prostate Specific Antigen < 0.014 ng/mL (0-4)
== END 2025-06-12 23:59 | disposition home or self-care (01) ==
PROVIDERS: Internal Medicine; PCP Family Medicine; Visit Provider Internal Medicine Medical Oncology
DX: C61 Malignant neoplasm of prostate (principal); C79.51 Secondary malignant neoplasm of bone; M81.0 Age-related osteoporosis without current pathological fracture; Z87.891 Personal history of nicotine dependence; Z79.899 Other long term (current) drug therapy
CPT/HCPCS: 36415; 80053; 84153; 84403; 85025; 99214

== ENCOUNTER 2025-06-17 12:03 | Oncology outpatient (recurring) (ONCR) | payer MEDICARE, SELFPAY ==
[2025-06-17] MEDS: denosumab-bbdz 120 mg SDV (Inpatient and Infusion Clinic Use) SUBCUT (12:49)
[2025-06-17] MEDS: leuprolide 22.5 mg Kit IM (12:49)
[2025-06-17 12:55] VITALS: BP 100/60
== END 2025-07-12 23:59 | disposition home or self-care (01) ==
PROVIDERS: PCP Family Medicine; Visit Provider Internal Medicine Medical Oncology
DX: Z51.11 Encounter for antineoplastic chemotherapy (principal); C61 Malignant neoplasm of prostate; M81.0 Age-related osteoporosis without current pathological fracture; Z79.899 Other long term (current) drug therapy
CPT/HCPCS: 96372; 96402; J9217; Q5136